=== PATIENT | female | born 1965 | race Hispanic/Latino ===

== ENCOUNTER 2020-01-27 16:52 | Inpatient (IN) | payer OTHER ==
[~2020-01-27] VITALS: Ht 152.4 cm; Wt 90.7 kg
[2020-01-27] MEDS ORDERED: ONDANSETRON HCL INJ 2MG/ML 2ML 2 MG/ML VIAL IV STA (18:05)
[2020-01-27] MEDS ORDERED: SODIUM CHLORIDE 0.9% 1000ML 1,000 ML IV STA ×3 (18:05→18:07)
--- NOTE | 2020-01-27 18:11 | Emergency Department Note ---
History of Present Illnes History of Present Illness Chief Complaint: General Medicine Complaints History of Present Illness This is a 55 year old female .c/o dizziness weakx 3 wks noted bs 593 in ed c/o n/v Chief Complaint Comment AT [facility], FELT DIZZY AND WEAK LAST 3 WEEKS. AAOX4. GCS 15, AMBULATORY. NO HX DIABETIES, BUT BS 593. NAUSEA AND VOMITING. 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 Arrival Mode: [facility] Treatment DEMOLITION WORKER: IV, See EMS Report Additional Treatment DEMOLITION WORKER: 24G LEFT HAND Onset (how long ago): week(s) (3weeks) Radiation: non-radiation, back, neck, extremity, abdomen, periumbilical, flank, proximal, distal, other Severity: mild Onset quality: gradual Duration (how long): week(s) (3 wks) Progression: worsening Context: recent illness, recent surgery, recent immobilization, recent travel, trauma/injury, new medications, hx of DVT/PE, non-compliance w/ medications, other Relieving factors: none Exacerbating factors: none Treatments prior to arrival: none Past Medical/Family History Physician Review I have reviewed the patient's past medical and family history. Any updates have been documented here. Past Medical History Recent Fever: No Clinical Suspicion of Infectio: No New/Unexplained Change in Ment: No Past Medical History: Hypertension Past Surgical History: Cholecysctectomy Social History Smoking Cessation: Never Smoker Alcohol Use: None Any Illegal Drug Use: No TB Exposure/Symptoms: No Physically hurt or threatened: No Family History Family history of heart diseas: No Other Any Pre-Existing Lines (PICC,: No Review of Systems Review of Systems Constitutional: malaise, weakness EENTM: no symptoms Cardiovascular: no symptoms Respiratory: no symptoms Gastrointestinal: no symptoms Genitourinary: no symptoms Musculoskeletal: no symptoms Neurological: weakness, other (dizziness) Psychological: no symptoms Endocrine: no symptoms Hematological/Lymphatic: no symptoms Review of other systems All other systems reviewed and negative. This is a 55 year old female .c/o dizziness weakx 3 wks noted bs 593 in ed c/o n/v Physical Exam Related Data Allergies: Coded Allergies: No Known Allergies (Unverified , 01/27/20) Triage Vital Signs Vital Signs Date Time Temp Pulse Resp B/P (MAP) Pulse Ox O2 Delivery O2 Flow Rate FiO2 01/27/20 16:54 97.6 99 18 184/72 99 Physical Exam CONSTITUTIONAL Constitutional: well-developed, well-nourished HENT HENT: normocephalic, atraumatic, oropharynx clear/moist, nose normal HENT L/R: left ext ear normal, right ext ear normal EYES Eyes: PERRL, conjunctivae normal NECK Neck: ROM normal PULMONARY Pulmonary: effort normal, breath sounds normal CARDIOVASCULAR Cardiovascular: regular rhythm, heart sounds normal, capillary refill normal, normal rate GASTROINTESTINAL Abdominal: soft, nontender, bowel sounds normal GENITOURINARY Genitourinary: exam deferred SKIN Skin: warm, dry MUSCULOSKELETAL Musculoskeletal: ROM normal NEUROLOGICAL Neurological: alert, oriented x 3, no gross motor or sensory deficits PSYCHOLOGICAL Psychological: mood/affect normal, judgement normal Exam - additional comments This is a 55 year old female .c/o dizziness weakx 3 wks noted bs 593 in ed c/o n/v Results Laboratory Laboratory Laboratory Tests Test 01/27/20 18:00 White Blood Count 10.58 x10e3/uL (4.8-10.8) Red Blood Count 5.32 x10e6/uL (3.6-5.1) Hemoglobin 14.8 g/dL (12.0-16.0) Hematocrit 43.6 % (34.2-44.1) Mean Corpuscular Volume 82.0 fL (81-99) Mean Corpuscular Hemoglobin 27.8 pg (28-32) Mean Corpuscular Hemoglobin Concent 33.9 g/dL (31-35) Red Cell Distribution Width 12.4 % (11.7-14.4) Platelet Count 230 x10e3/uL (140-360) Neutrophils (%) (Auto) 65.0 % (38.7-80.0) Lymphocytes (%) (Auto) 27.9 % (18.0-39.1) Monocytes (%) (Auto) 5.2 % (4.4-11.3) Eosinophils (%) (Auto) 1.2 % (0.0-6.0) Basophils (%) (Auto) 0.4 % (0.0-1.0) Neutrophils # (Auto) 6.9 (2.1-6.9) Lymphocytes # (Auto) 3.0 (1.0-3.2) Monocytes # (Auto) 0.6 (0.2-0.8) Eosinophils # (Auto) 0.1 (0.0-0.4) Basophils # (Auto) 0.0 (0.0-0.1) Absolute Immature Granulocyte (auto 0.03 x10e3/uL (0-0.1) Sodium Level 137 mmol/L (136-145) Potassium Level 3.0 mmol/L (3.5-5.1) Chloride Level 100 mmol/L (98-107) Carbon Dioxide Level 21 mmol/L (22-29) Anion Gap 19.0 mmol/L (8-16) Blood Urea Nitrogen 9 mg/dL (7-26) Creatinine 1.11 mg/dL (0.57-1.11) Estimat Glomerular Filtration Rate 51 ML/MIN (60-) BUN/Creatinine Ratio 8 (6-25) Glucose Level 470 mg/dL (74-118) Calcium Level 9.6 mg/dL (8.4-10.2) Magnesium Level 1.4 MG/DL (1.3-2.1) Total Bilirubin 0.5 mg/dL (0.2-1.2) Aspartate Amino Transf (AST/SGOT) 59 IU/L (5-34) Alanine Aminotransferase (ALT/SGPT) 76 IU/L (0-55) Alkaline Phosphatase 151 IU/L (40-150) Creatine Kinase 54 IU/L (29-168) Creatine Kinase MB 0.70 ng/mL (0-5.0) Troponin I 0.020 ng/mL (0-0.300) B-Type Natriuretic Peptide 16.4 pg/mL (0-100) Total Protein 8.4 g/dL (6.5-8.1) Albumin 3.7 g/dL (3.5-5.0) Globulin 4.7 g/dL (2.3-3.5) Albumin/Globulin Ratio 0.8 (0.8-2.0) Triglycerides Level 202 MG/DL (0-149) Cholesterol Level 167 MD/DL (0-199) LDL Cholesterol 62 MG/DL (60-130) HDL Cholesterol 65 MG/DL (40-60) Cholesterol/HDL Ratio 2.6 (3.0-3.6) Amylase Level 20 U/L (25-125) Lipase 22 U/L (8-78) Lab results reviewed: Yes Critical Care Time Subsequent provider I assumed direction of critical care for this patient from another provider of my specialty. Assessment & Plan Reassessment Reassessment This is a 55 year old female .c/o dizziness weak x 3 wks noted bs 593 in ed c/o n/v- lab ordered pt medicated w/ ns bolus x 2 and zofran pt medicated w/ reg insulin 10u Assessment & Plan Final Impression: (1) Hypokalemia (2) Weakness (3) Obesity (4) Type 2 diabetes mellitus Assessment & Plan discussed lab results plan of care and need for admit spoke w/ Dr Mobley will admit Depart Disposition: ADMITTED Last Vital Signs Date Time Temp Pulse Resp B/P (MAP) Pulse Ox O2 Delivery O2 Flow Rate FiO2 01/27/20 16:54 97.6 99 18 184/72 99 RASHEED CADE Jan 27, 2020 18:11
[2020-01-27 18:41] LABS: BASOPHILS % 0.4 % (0.0-1.0); EOSINOPHILS # (AUTO) 0.1 (0.0-0.4); EOSINOPHILS % 1.2 % (0.0-6.0); HEMATOCRIT 43.6 % (34.2-44.1); HEMOGLOBIN 14.8 g/dL (12.0-16.0); LYMPHOCYTES % 27.9 % (18.0-39.1); MEAN CORPUSCULAR HEMOGLOBIN 27.8 pg (28-32); MEAN CORPUSCULAR HGB CONC 33.9 g/dL (31-35); MONOCYTES # (AUTO) 0.6 (0.2-0.8); MONOCYTES % 5.2 % (4.4-11.3); NEUTROPHILS # (AUTO) 6.9 (2.1-6.9); PLATELET COUNT 230 x10e3/uL (140-360); RED BLOOD COUNT 5.32 x10e6/uL (3.6-5.1); RED CELL DISTRIBUTION WIDTH 12.4 % (11.7-14.4)
[2020-01-27 19:09] LABS: ALBUMIN 3.7 g/dL (3.5-5.0); ALBUMIN/GLOBULIN RATIO 0.8 (0.8-2.0); CALCIUM 9.6 mg/dL (8.4-10.2); CHOL/HDL RATIO 2.6 (3.0-3.6); CREATININE, SERUM 1.11 mg/dL (0.57-1.11); MAGNESIUM 1.4 MG/DL (1.3-2.1)
[2020-01-27 19:17] LABS: CREATINE KINASE MB 0.7 ng/mL (0-5.0)
[2020-01-27] MEDS ORDERED: POTASSIUM CHLORIDE 20MEQ/15ML UDC PO ONE (19:30)
[2020-01-27] MEDS ORDERED: KCL 20MEQ/.9 SOD CHL 1,000 ML IV ONE ×3 (19:30→23:45)
[2020-01-27] MEDS ORDERED: INSULIN REGULAR, HUMAN 100 UNIT/1 ML 3ML VIAL IV ONE (19:30)
[2020-01-27] MEDS ORDERED: DEXTROSE 50% SYRINGE 50 ML IV PRN ×2 (19:45→22:45)
[2020-01-27] MEDS ORDERED: ASPIRIN 81 MG CHEW TAB PO ONE (19:45)
--- NOTE | 2020-01-27 20:12 | Diagnostic Imaging Report ---
EXAM: CHEST SINGLE (NOT PORTABLE) DATE: 01/27/2020 6:30 PM INDICATION: Dizziness, weakness ^ERMD ORDER ^[id number] ^1830 ^Y COMPARISON: None FINDINGS: Lines and tubes: None Heart size normal allowing for low lung volumes. No focal pulmonary opacity, pleural effusion or pneumothorax. Upper abdomen unremarkable. No acute bony abnormality. IMPRESSION: No evidence for acute disease. Signed by: Dr. Ronak Real M.D. on 01/27/2020 8:09 PM
[2020-01-27] MEDS: ONDANSETRON HCL INJ 2MG/ML 2ML 2 MG/ML VIAL IV PRN (20:13)
[2020-01-27] MEDS ORDERED: POTASSIUM CHLORIDE 20 MEQ TAB CR PO SCH (21:00)
[2020-01-27] MEDS ORDERED: INSULIN REGULAR, HUMAN 100 UNIT/1 ML 3ML VIAL SQ SCH (21:00)
[2020-01-27 21:14] LABS: CLARITY,URINE SL CLOUDY (CLEAR); COLOR,URINE YELLOW (YELLOW); KETONES,URINE TRACE (NEGATIVE); LEUKOCYTE ESTERASE ,URINE TRACE (NEGATIVE); NITRITE,URINE POSITIVE (NEGATIVE); PROTEIN,URINE DIPSTICK NEGATIVE (NEGATIVE); URINE UROBILINOGEN 0.2 mg/dL (0.2 - 1)
[2020-01-27 21:15] LABS: BILIRUBIN,URINE NEGATIVE (NEGATIVE)
--- OUTSIDE RECORDS SUMMARY | 2020-01-27 21:15 | XMS REPORT | Continuity of Care Document ---
Author Author [facility] Organization [facility] Address [address] [place] [address] Phone Unavailable Care Team Providers Care Change Coordinator Name Role Phone RASHEED CADE MD Attphys Unavailable GILL, TEE Admphys Unavailable Payers Payer Name Policy Type Policy Number Effective Date Expiration Date S ource Problems This patient has no known problems. Allergies, Adverse Reactions, Alerts Allergy Name Allergy Type Status Severity Reaction(s) Onset Date Inacti ve Date Treating Clinician Comments Source No Known Allergies DA Active U 2015-12-15 00:00:00 [facility] Medications This patient has no known medications. Procedures This patient has no known procedures. Results Test Description Test Time Test Comments Results Result Comments Source CHEST SINGLE (NOT PORTABLE) 2020-01-27 20:08:00 [facility] [address] [place], [place] [address] Patient Name: STAR THORNTON MR #: [id number] : 1965 Age/Sex: 55/F Req #: [id number] Adm Physician: Ordered by: RASHEED CADE MD, MD Report #: [id number] Location: ER Room/Bed: Procedure: [id number] DX/CHEST SINGLE (NOT PORTABLE) Exam Date: 01/27/20 Exam Time: 1829 REPORT STATUS: Signed EXAM: CHEST SINGLE (NOT PORTABLE) DATE: 01/27/2020 6:30 PM INDICATION: Dizziness, weakness ERMD ORDER [id number] COMPARISON: None FINDINGS: Lines and tubes: None Heart size normal allowing for low lung volumes. No focal pulmonary opacity, pleural effusion or pneumothorax. Upper abdomen unremarkable. No acute bony abnormality. IMPRESSION: No evidence for acute disease. Signed by: Dr. Valerie Real M.D. on 01/27/2020 8:09 PM Dictated By: VALERIE REAL MD 08 Transcribed By: CANDICE on 01/27/202008 COPY TO: RASHEED CADE GASTRIC,BIOPSY 2019-05-23 12:23:00 RUN DATE: 05/23/19 [place] - Lab PAGE 1 RUN TIME: 1223 Specimen Inquiry RUN USER: INTERFACE PATIENT: STAR CLIFFORD LOC: [facility] U #: [id number] AGE/SX: 54/F ROOM: [facility] RE05/07/[facility] DR: [place]a [place] : 61 BED: A DIS: 05/16/19 STATUS: DIS IN TLOC: SPEC #: [id number] RECD: 05/15/19 STATUS: YOSELIN REQ #: [id number] JAMAL: 05/14/19-13[address] [facility] [address]: Moshe Oh MD ENTERED: 05/15/19 SP TYPE: GASTRIC BX OTHR DR: Herman Cantrell MD, David N MDORDERED: GROSS COPIES TO: Herman Cantrell MD [address] [place] [address] Moshe Oh MD [address] [place], [place] [id number] Ata Michaels MD [address] [place] [address] MARKERS: INTRADEPARTMENTAL CONSULT PROCEDURES: GROSS (05/20/19-0597) TISSUES: ANTRUM - NODULE BX COLD CLINICAL HISTORY COLLECTION DATE: 05/14/2019 ABDOMINAL PAIN, NAUSEA; VOMITING POST-OP DIAGNOSIS: GASTRITIS, HIATAL HERNIA, GASTROPARESIS COMMENT Multiple levels of the tissue show an area in which the mucosal surface is intact. Beneath the mucosal lining is an expanded are of inflamed granulation tissue. No discrete areas of mucosal erosion/ulceration are identified in the biopsy sample. Features diagnostic of malignancy are not present. Correlation is necessary. Intradepartmental consultation: DMW. CONTINUED ON NEXT PAGE RUN DATE: 05/23/19 [place] - Lab PAGE 2 RUN TIME: 1223 Specimen Inquiry RUN USER: INTERFACE ------ ------SPEC #: [id number] PATIENT: STAR CLIFFORD #[id number] (Continued) FINAL DIAGNOSIS Antral nodule, biopsy: PROMINENT AREA OF INFLAMED GRANULATION TISSUE IN ANTRAL MUCOSA, see comment NEGATIVE FOR INTESTINAL METAPLASIA NEGATIVE FOR HELICOBACTER ORGANISMS NEGATIVE FOR MALIGNANCY MULTIPLE LEVELS EXAMINED RRB/ D [address], [address] MACROSCOPIC The specimen is received in formalin, labeled with the patient's name, identified as "antrum nodule", and consists of boo biopsy tissue measuring 0.3 cm, submitted for H E and Giemsa stains. GROSS PERFORMED AT [facility] [address] [place] [address] (P)[phone] MICROSCOPIC All of the stains, including any controls performed, stain appropriately. MICROSCOPIC PERFORMED AT [facility] [address] [place] [address] (P)[phone] PER[address] Diagnosis performed at: [facility], [address] [place] [address] Signed SIGNATURE ON FILE Ignacio Dee MD 05/23/19 1223 END OF REPORT GLUBED 2019-05-16 04:55:00 Test Item GLUBED (test code = GLUBED) 84 mg/dL 74-106 N Performed by certified vegetable washing machine operator at [facility] [id number] 21:30:00* Test Item Value Reference Range Interpretation Comments GLUBED (test code = GLUBED) 133 mg/dL 74-106 H Performed by certified vegetable washing machine operator at [facility] [id number] 17:36:00* Test Item Value Reference Range Interpretation Comments GLUBED (test code = GLUBED) 127 mg/dL 74-106 H Performed by certified vegetable washing machine operator at [facility] [id number] 13:00:00* Test Item Value Reference Range Interpretation Comments GLUBED (test code = GLUBED) 206 mg/dL 74-106 H Performed by certified vegetable washing machine operator at [facility] BASIC METABOLIC [id number] 07:36:00* Test Item Value Reference Range Interpretation Comments SODIUM (test code = NA) 141 mmol/L 136-145 N POTASSIUM (test code = K) 3.3 mmol/L 3.5-5.1 L CHLORIDE (test code = CL) 115.0 mmol/L 98-107 H CARBON DIOXIDE (test code = CO2) 19.0 mmol/L 21-32 L ANION GAP (test code = GAP) 10.3 10-20 N GLUCOSE (test code = GLU) 105 mg/dL 74-106 N BLOOD UREA NITROGEN (test code = BUN) 2 mg/dL 7-18 L GLOMERULAR FILTRATION RATE (test code = GFR) > 60 mL/min >=60 Estimated GFR by using Modified MDRD formula.Chronic kidney disease is defined as either kidney damageor GFR <60 mL/min/1.73 m2 for >3 months. CREATININE (test code = CREAT) 0.50 mg/dL 0.55-1.02 L Note change in reference range due to change in reagent. BUN/CREATININE RATIO (test code = BUN/CREA) 3.7 10-20 L CALCIUM (test code = CA) 8.4 mg/dL 8.5-10.1 L BASIC METABOLIC [id number] 07:31:00* Test Item Value Reference Range Interpretation Comments SODIUM (test code = NA) 141 mmol/L 136-145 N POTASSIUM (test code = K) 3.3 mmol/L 3.5-5.1 L CHLORIDE (test code = CL) 115.0 mmol/L 98-107 H CARBON DIOXIDE (test code = CO2) mmol/L 21-32 ANION GAP (test code = GAP) 10-20 GLUCOSE (test code = GLU) mg/dL 74-106 BLOOD UREA NITROGEN (test code = BUN) mg/dL 7-18 GLOMERULAR FILTRATION RATE (test code = GFR) mL/min >=60 CREATININE (test code = CREAT) mg/dL 0.55-1.02 BUN/CREATININE RATIO (test code = BUN/CREA) 10-20 CALCIUM (test code = CA) mg/dL 8.5-10.1 CBC W/AUTO [id number] 07:13:00* Test Item Value Reference Range Interpretation Comments WHITE BLOOD CELL (test code = WBC) 6.6 K/mm3 4.5-12.5 N RED BLOOD CELL (test code = RBC) 4.52 mill/mm3 3.7-5.2 N HEMOGLOBIN (test code = HGB) 13.0 gram/dL 11.5-15.5 N HEMATOCRIT (test code = HCT) 39.5 % 36.0-46.0 N MEAN CELL VOLUME (test code = MCV) 87.4 fL 80-98 N MEAN CELL HGB (test code = MCH) 28.8 picogram 27.0-33.0 N MEAN CELL HGB CONCETRATION (test code = MCHC) 32.9 gram/dL 33.0-36. 0 L RED CELL DISTRIBUTION WIDTH (test code = RDW) 13.1 % 11.6-16. 2 N RED CELL DISTRIBUTION WIDTH SD (test code = RDW-SD) 41.6 fL 37 .0-51.0 N PLATELET COUNT (test code = PLT) 310 K/mm3 150-450 N MEAN PLATELET VOLUME (test code = MPV) 9.9 fL 6.7-11.0 N NEUTROPHIL % (test code = NT%) 51.9 % 39.0-69.0 N IMMATURE GRANULOCYTE % (test code = IG%) 0.3 % 0.0-5.0 N LYMPHOCYTE % (test code = LY%) 36.2 % 25.0-55.0 N MONOCYTE % (test code = MO%) 7.8 % 0.0-10.0 N EOSINOPHIL % (test code = EO%) 3.5 % 0.0-5.0 N BASOPHIL % (test code = BA%) 0.3 % 0.0-1.0 N NUCLEATED RBC % (test code = NRBC%) 0.0 % 0-0 N NEUTROPHIL # (test code = NT#) 3.42 K/mm3 1.8-7.7 N IMMATURE GRANULOCYTE # (test code = IG#) 0.02 x10 3/uL 0-0.03 N LYMPHOCYTE # (test code = LY#) 2.38 K/mm3 1.0-5.0 N MONOCYTE # (test code = MO#) 0.51 K/mm3 0-0.8 N EOSINOPHIL # (test code = EO#) 0.23 K/mm3 0.0-0.5 N BASOPHIL # (test code = BA#) 0.02 K/mm3 0.0-0.2 N NUCLEATED RBC # (test code = NRBC#) 0.00 K/mm3 0.0-0.1 N CBC W/AUTO [id number] 07:10:00* Test Item Value Reference Range Interpretation Comments WHITE BLOOD CELL (test code = WBC) K/mm3 4.5-12.5 RED BLOOD CELL (test code = RBC) mill/mm3 3.7-5.2 HEMOGLOBIN (test code = HGB) 13.0 gram/dL 11.5-15.5 N HEMATOCRIT (test code = HCT) 39.5 % 36.0-46.0 N MEAN CELL VOLUME (test code = MCV) fL 80-98 MEAN CELL HGB (test code = MCH) picogram 27.0-33.0 MEAN CELL HGB CONCETRATION (test code = MCHC) gram/dL 33.0-36. 0 RED CELL DISTRIBUTION WIDTH (test code = RDW) % 11.6-16. 2 RED CELL DISTRIBUTION WIDTH SD (test code = RDW-SD) fL 37 .0-51.0 PLATELET COUNT (test code = PLT) K/mm3 150-450 MEAN PLATELET VOLUME (test code = MPV) fL 6.7-11.0 NEUTROPHIL % (test code = NT%) % 39.0-69.0 IMMATURE GRANULOCYTE % (test code = IG%) % 0.0-5.0 LYMPHOCYTE % (test code = LY%) % 25.0-55.0 MONOCYTE % (test code = MO%) % 0.0-10.0 EOSINOPHIL % (test code = EO%) % 0.0-5.0 BASOPHIL % (test code = BA%) % 0.0-1.0 NEUTROPHIL # (test code = NT#) K/mm3 1.8-7.7 LYMPHOCYTE # (test code = LY#) K/mm3 1.0-5.0 MONOCYTE # (test code = MO#) K/mm3 0-0.8 EOSINOPHIL # (test code = EO#) K/mm3 0.0-0.5 BASOPHIL # (test code = BA#) K/mm3 0.0-0.2 [id number] 05:02:00* Test Item Value Reference Range Interpretation Comments GLUBED (test code = GLUBED) 92 mg/dL 74-106 N Performed by certified vegetable washing machine operator at [facility] [id number] 20:59:00* Test Item Value Reference Range Interpretation Comments GLUBED (test code = GLUBED) 150 mg/dL 74-106 H Performed by certified vegetable washing machine operator at [facility] [id number] 17:54:00* Test Item Value Reference Range Interpretation Comments GLUBED (test code = GLUBED) 136 mg/dL 74-106 H Performed by certified vegetable washing machine operator at [facility] [id number] 11:49:00* Test Item Value Reference Range Interpretation Comments GLUBED (test code = GLUBED) 102 mg/dL 74-106 N Performed by certified vegetable washing machine operator at [facility] COMPREHENSIVE METABOLIC [id number] 07:10:00* Test Item Value Reference Range Interpretation Comments SODIUM (test code = NA) 143 mmol/L 136-145 N POTASSIUM (test code = K) 3.2 mmol/L 3.5-5.1 L CHLORIDE (test code = CL) 116.0 mmol/L 98-107 H CARBON DIOXIDE (test code = CO2) 22.0 mmol/L 21-32 N ANION GAP (test code = GAP) 8.2 10-20 L GLUCOSE (test code = GLU) 107 mg/dL 74-106 H BLOOD UREA NITROGEN (test code = BUN) 1 mg/dL 7-18 L GLOMERULAR FILTRATION RATE (test code = GFR) > 60 mL/min >=60 Estimated GFR by using Modified MDRD formula.Chronic kidney disease is defined as either kidney damageor GFR <60 mL/min/1.73 m2 for >3 months. CREATININE (test code = CREAT) 0.60 mg/dL 0.55-1.02 N Note change in reference range due to change in reagent. BUN/CREATININE RATIO (test code = BUN/CREA) 1.6 10-20 L TOTAL PROTEIN (test code = PROT) 6.1 gram/dL 6.4-8.2 L ALBUMIN (test code = ALB) 1.9 g/dL 3.4-5.0 L GLOBULIN (test code = GLOB) 4.2 gram/dL 2.7-4.2 N ALBUMIN/GLOBULIN RATIO (test code = A/G) 0.5 0.75-1.50 L CALCIUM (test code = CA) 8.0 mg/dL 8.5-10.1 L BILIRUBIN TOTAL (test code = BILT) 0.30 mg/dL 0.0-1.0 N SGOT/AST (test code = AST) 29 IUnit/L 15-37 N SGPT/ALT (test code = ALT) 23 IUnit/L 12-78 N ALKALINE PHOSPHATASE TOTAL (test code = ALKP) 75 IUnit/L 45-117 N Note change in reference range due to change in reagent. [id number] 07:10:00* Test Item Value Reference Range Interpretation Comments MAGNESIUM (test code = MAG) 1.9 mg/dL 1.8-2.4 N COMPREHENSIVE METABOLIC [id number] 07:04:00* Test Item Value Reference Range Interpretation Comments SODIUM (test code = NA) 143 mmol/L 136-145 N POTASSIUM (test code = K) 3.2 mmol/L 3.5-5.1 L CHLORIDE (test code = CL) 116.0 mmol/L 98-107 H CARBON DIOXIDE (test code = CO2) mmol/L 21-32 ANION GAP (test code = GAP) 10-20 GLUCOSE (test code = GLU) mg/dL 74-106 BLOOD UREA NITROGEN (test code = BUN) mg/dL 7-18 GLOMERULAR FILTRATION RATE (test code = GFR) mL/min >=60 CREATININE (test code = CREAT) mg/dL 0.55-1.02 BUN/CREATININE RATIO (test code = BUN/CREA) 10-20 TOTAL PROTEIN (test code = PROT) gram/dL 6.4-8.2 ALBUMIN (test code = ALB) g/dL 3.4-5.0 GLOBULIN (test code = GLOB) gram/dL 2.7-4.2 ALBUMIN/GLOBULIN RATIO (test code = A/G) 0.75-1.50 CALCIUM (test code = CA) mg/dL 8.5-10.1 BILIRUBIN TOTAL (test code = BILT) mg/dL 0.0-1.0 SGOT/AST (test code = AST) IUnit/L 15-37 SGPT/ALT (test code = ALT) IUnit/L 12-78 ALKALINE PHOSPHATASE TOTAL (test code = ALKP) IUnit/L 45-117 [id number] 07:04:00* Test Item Value Reference Range Interpretation Comments MAGNESIUM (test code = MAG) mg/dL 1.8-2.4 CBC W/AUTO [id number] 06:49:00* Test Item Value Reference Range Interpretation Comments WHITE BLOOD CELL (test code = WBC) 6.8 K/mm3 4.5-12.5 N RED BLOOD CELL (test code = RBC) 4.26 mill/mm3 3.7-5.2 N HEMOGLOBIN (test code = HGB) 12.2 gram/dL 11.5-15.5 N HEMATOCRIT (test code = HCT) 37.8 % 36.0-46.0 N MEAN CELL VOLUME (test code = MCV) 88.7 fL 80-98 N MEAN CELL HGB (test code = MCH) 28.6 picogram 27.0-33.0 N MEAN CELL HGB CONCETRATION (test code = MCHC) 32.3 gram/dL 33.0-36. 0 L RED CELL DISTRIBUTION WIDTH (test code = RDW) 13.1 % 11.6-16. 2 N RED CELL DISTRIBUTION WIDTH SD (test code = RDW-SD) 41.5 fL 37 .0-51.0 N PLATELET COUNT (test code = PLT) 290 K/mm3 150-450 N MEAN PLATELET VOLUME (test code = MPV) 9.8 fL 6.7-11.0 N NEUTROPHIL % (test code = NT%) 56.7 % 39.0-69.0 N IMMATURE GRANULOCYTE % (test code = IG%) 1.2 % 0.0-5.0 N LYMPHOCYTE % (test code = LY%) 31.0 % 25.0-55.0 N MONOCYTE % (test code = MO%) 6.9 % 0.0-10.0 N EOSINOPHIL % (test code = EO%) 3.8 % 0.0-5.0 N BASOPHIL % (test code = BA%) 0.4 % 0.0-1.0 N NUCLEATED RBC % (test code = NRBC%) 0.0 % 0-0 N NEUTROPHIL # (test code = NT#) 3.85 K/mm3 1.8-7.7 N IMMATURE GRANULOCYTE # (test code = IG#) 0.08 x10 3/uL 0-0.03 H LYMPHOCYTE # (test code = LY#) 2.11 K/mm3 1.0-5.0 N MONOCYTE # (test code = MO#) 0.47 K/mm3 0-0.8 N EOSINOPHIL # (test code = EO#) 0.26 K/mm3 0.0-0.5 N BASOPHIL # (test code = BA#) 0.03 K/mm3 0.0-0.2 N NUCLEATED RBC # (test code = NRBC#) 0.00 K/mm3 0.0-0.1 N [id number] 05:00:00* Test Item Value Reference Range Interpretation Comments GLUBED (test code = GLUBED) 96 mg/dL 74-106 N Performed by certified vegetable washing machine operator at [facility] [id number] 20:49:00* Test Item Value Reference Range Interpretation Comments GLUBED (test code = GLUBED) 119 mg/dL 74-106 H Performed by certified vegetable washing machine operator at [facility] [id number] 16:17:00* Test Item Value Reference Range Interpretation Comments GLUBED (test code = GLUBED) 157 mg/dL 74-106 H Performed by certified vegetable washing machine operator at [facility] [id number] 11:31:00* Test Item Value Reference Range Interpretation Comments GLUBED (test code = GLUBED) 128 mg/dL 74-106 H Performed by certified vegetable washing machine operator at [facility] COMPREHENSIVE METABOLIC [id number] 08:42:00* Test Item Value Reference Range Interpretation Comments SODIUM (test code = NA) 144 mmol/L 136-145 N POTASSIUM (test code = K) 3.0 mmol/L 3.5-5.1 L RE SULT VERIFIED BY REPEAT ANALYSIS CHLORIDE (test code = CL) 113.0 mmol/L 98-107 H CARBON DIOXIDE (test code = CO2) 26.0 mmol/L 21-32 N ANION GAP (test code = GAP) 8.0 10-20 L GLUCOSE (test code = GLU) 114 mg/dL 74-106 H BLOOD UREA NITROGEN (test code = BUN) 2 mg/dL 7-18 L GLOMERULAR FILTRATION RATE (test code = GFR) > 60 mL/min >=60 Estimated GFR by using Modified MDRD formula.Chronic kidney disease is defined as either kidney damageor GFR <60 mL/min/1.73 m2 for >3 months. CREATININE (test code = CREAT) 0.60 mg/dL 0.55-1.02 N Note change in reference range due to change in reagent. BUN/CREATININE RATIO (test code = BUN/CREA) 3.2 10-20 L TOTAL PROTEIN (test code = PROT) 6.6 gram/dL 6.4-8.2 N ALBUMIN (test code = ALB) 2.1 g/dL 3.4-5.0 L GLOBULIN (test code = GLOB) 4.5 gram/dL 2.7-4.2 H ALBUMIN/GLOBULIN RATIO (test code = A/G) 0.5 0.75-1.50 L CALCIUM (test code = CA) 8.3 mg/dL 8.5-10.1 L BILIRUBIN TOTAL (test code = BILT) 0.30 mg/dL 0.0-1.0 N SGOT/AST (test code = AST) 30 IUnit/L 15-37 N SGPT/ALT (test code = ALT) 22 IUnit/L 12-78 N ALKALINE PHOSPHATASE TOTAL (test code = ALKP) 84 IUnit/L 45-117 N Note change in reference range due to change in reagent. [id number] 08:42:00* Test Item Value Reference Range Interpretation Comments MAGNESIUM (test code = MAG) 1.5 mg/dL 1.8-2.4 L COMPREHENSIVE METABOLIC [id number] 08:36:00* Test Item Value Reference Range Interpretation Comments SODIUM (test code = NA) 144 mmol/L 136-145 N POTASSIUM (test code = K) 3.0 mmol/L 3.5-5.1 L RE SULT VERIFIED BY REPEAT ANALYSIS CHLORIDE (test code = CL) 113.0 mmol/L 98-107 H CARBON DIOXIDE (test code = CO2) mmol/L 21-32 ANION GAP (test code = GAP) 10-20 GLUCOSE (test code = GLU) mg/dL 74-106 BLOOD UREA NITROGEN (test code = BUN) mg/dL 7-18 GLOMERULAR FILTRATION RATE (test code = GFR) mL/min >=60 CREATININE (test code = CREAT) mg/dL 0.55-1.02 BUN/CREATININE RATIO (test code = BUN/CREA) 10-20 TOTAL PROTEIN (test code = PROT) gram/dL 6.4-8.2 ALBUMIN (test code = ALB) g/dL 3.4-5.0 GLOBULIN (test code = GLOB) gram/dL 2.7-4.2 ALBUMIN/GLOBULIN RATIO (test code = A/G) 0.75-1.50 CALCIUM (test code = CA) mg/dL 8.5-10.1 BILIRUBIN TOTAL (test code = BILT) mg/dL 0.0-1.0 SGOT/AST (test code = AST) IUnit/L 15-37 SGPT/ALT (test code = ALT) IUnit/L 12-78 ALKALINE PHOSPHATASE TOTAL (test code = ALKP) IUnit/L 45-117 [id number] 08:36:00* Test Item Value Reference Range Interpretation Comments MAGNESIUM (test code = MAG) mg/dL 1.8-2.4 CBC W/AUTO [id number] 08:25:00* Test Item Value Reference Range Interpretation Comments WHITE BLOOD CELL (test code = WBC) 8.4 K/mm3 4.5-12.5 N RED BLOOD CELL (test code = RBC) 4.52 mill/mm3 3.7-5.2 N HEMOGLOBIN (test code = HGB) 13.1 gram/dL 11.5-15.5 N HEMATOCRIT (test code = HCT) 38.6 % 36.0-46.0 N MEAN CELL VOLUME (test code = MCV) 85.4 fL 80-98 N MEAN CELL HGB (test code = MCH) 29.0 picogram 27.0-33.0 N MEAN CELL HGB CONCETRATION (test code = MCHC) 33.9 gram/dL 33.0-36. 0 N RED CELL DISTRIBUTION WIDTH (test code = RDW) 12.6 % 11.6-16. 2 N RED CELL DISTRIBUTION WIDTH SD (test code = RDW-SD) 38.9 fL 37 .0-51.0 N PLATELET COUNT (test code = PLT) 287 K/mm3 150-450 N MEAN PLATELET VOLUME (test code = MPV) 10.2 fL 6.7-11.0 N NEUTROPHIL % (test code = NT%) 56.0 % 39.0-69.0 N IMMATURE GRANULOCYTE % (test code = IG%) 0.7 % 0.0-5.0 N LYMPHOCYTE % (test code = LY%) 31.9 % 25.0-55.0 N MONOCYTE % (test code = MO%) 7.1 % 0.0-10.0 N EOSINOPHIL % (test code = EO%) 3.9 % 0.0-5.0 N BASOPHIL % (test code = BA%) 0.4 % 0.0-1.0 N NUCLEATED RBC % (test code = NRBC%) 0.0 % 0-0 N NEUTROPHIL # (test code = NT#) 4.71 K/mm3 1.8-7.7 N IMMATURE GRANULOCYTE # (test code = IG#) 0.06 x10 3/uL 0-0.03 H LYMPHOCYTE # (test code = LY#) 2.68 K/mm3 1.0-5.0 N MONOCYTE # (test code = MO#) 0.60 K/mm3 0-0.8 N EOSINOPHIL # (test code = EO#) 0.33 K/mm3 0.0-0.5 N BASOPHIL # (test code = BA#) 0.03 K/mm3 0.0-0.2 N NUCLEATED RBC # (test code = NRBC#) 0.00 K/mm3 0.0-0.1 N CBC W/AUTO [id number] 08:23:00* Test Item Value Reference Range Interpretation Comments WHITE BLOOD CELL (test code = WBC) K/mm3 4.5-12.5 RED BLOOD CELL (test code = RBC) mill/mm3 3.7-5.2 HEMOGLOBIN (test code = HGB) 13.1 gram/dL 11.5-15.5 N HEMATOCRIT (test code = HCT) 38.6 % 36.0-46.0 N MEAN CELL VOLUME (test code = MCV) fL 80-98 MEAN CELL HGB (test code = MCH) picogram 27.0-33.0 MEAN CELL HGB CONCETRATION (test code = MCHC) gram/dL 33.0-36. 0 RED CELL DISTRIBUTION WIDTH (test code = RDW) % 11.6-16. 2 RED CELL DISTRIBUTION WIDTH SD (test code = RDW-SD) fL 37 .0-51.0 PLATELET COUNT (test code = PLT) K/mm3 150-450 MEAN PLATELET VOLUME (test code = MPV) fL 6.7-11.0 NEUTROPHIL % (test code = NT%) % 39.0-69.0 IMMATURE GRANULOCYTE % (test code = IG%) % 0.0-5.0 LYMPHOCYTE % (test code = LY%) % 25.0-55.0 MONOCYTE % (test code = MO%) % 0.0-10.0 EOSINOPHIL % (test code = EO%) % 0.0-5.0 BASOPHIL % (test code = BA%) % 0.0-1.0 NEUTROPHIL # (test code = NT#) K/mm3 1.8-7.7 LYMPHOCYTE # (test code = LY#) K/mm3 1.0-5.0 MONOCYTE # (test code = MO#) K/mm3 0-0.8 EOSINOPHIL # (test code = EO#) K/mm3 0.0-0.5 BASOPHIL # (test code = BA#) K/mm3 0.0-0.2 [id number] 05:32:00* Test Item Value Reference Range Interpretation Comments GLUBED (test code = GLUBED) 112 mg/dL 74-106 H Performed by certified vegetable washing machine operator at [facility] [id number] 21:07:00* Test Item Value Reference Range Interpretation Comments GLUBED (test code = GLUBED) 134 mg/dL 74-106 H Performed by certified vegetable washing machine operator at [facility]2019-09-22 16:30:00* Test Item Value Reference Range Interpretation Comments GLUBED (test code = GLUBED) 94 mg/dL 74-106 N Performed by certified vegetable washing machine operator at [facility]2019-09-22 12:00:00* Test Item Value Reference Range Interpretation Comments GLUBED (test code = GLUBED) 102 mg/dL 74-106 N Performed by certified vegetable washing machine operator at [facility]2019-09-22 06:43:00* Test Item Value Reference Range Interpretation Comments GLUBED (test code = GLUBED) 108 mg/dL 74-106 H Performed by certified vegetable washing machine operator at [facility]2019-09-21 20:42:00* Test Item Value Reference Range Interpretation Comments GLUBED (test code = GLUBED) 137 mg/dL 74-106 H Performed by certified vegetable washing machine operator at [facility] [id number] 16:58:00* Test Item Value Reference Range Interpretation Comments GLUBED (test code = GLUBED) 199 mg/dL 74-106 H Performed by certified vegetable washing machine operator at [facility] [id number] 16:58:00* Test Item Value Reference Range Interpretation Comments GLUBED (test code = GLUBED) 101 mg/dL 74-106 N Performed by certified vegetable washing machine operator at [facility] [id number] 16:58:00* Test Item Value Reference Range Interpretation Comments GLUBED (test code = GLUBED) 106 mg/dL 74-106 N Performed by certified vegetable washing machine operator at [facility] COMPREHENSIVE METABOLIC [id number] 08:23:00* Test Item Value Reference Range Interpretation Comments SODIUM (test code = NA) 142 mmol/L 136-145 N POTASSIUM (test code = K) 3.0 mmol/L 3.5-5.1 L CHLORIDE (test code = CL) 111.0 mmol/L 98-107 H CARBON DIOXIDE (test code = CO2) 24.0 mmol/L 21-32 N ANION GAP (test code = GAP) 10.0 10-20 N GLUCOSE (test code = GLU) 101 mg/dL 74-106 N BLOOD UREA NITROGEN (test code = BUN) 4 mg/dL 7-18 L GLOMERULAR FILTRATION RATE (test code = GFR) > 60 mL/min >=60 Estimated GFR by using Modified MDRD formula.Chronic kidney disease is defined as either kidney damageor GFR <60 mL/min/1.73 m2 for >3 months. CREATININE (test code = CREAT) 0.60 mg/dL 0.55-1.02 N Note change in reference range due to change in reagent. BUN/CREATININE RATIO (test code = BUN/CREA) 7.2 10-20 L TOTAL PROTEIN (test code = PROT) 6.3 gram/dL 6.4-8.2 L ALBUMIN (test code = ALB) 1.8 g/dL 3.4-5.0 L GLOBULIN (test code = GLOB) 4.5 gram/dL 2.7-4.2 H ALBUMIN/GLOBULIN RATIO (test code = A/G) 0.4 0.75-1.50 L CALCIUM (test code = CA) 8.2 mg/dL 8.5-10.1 L BILIRUBIN TOTAL (test code = BILT) 0.30 mg/dL 0.0-1.0 N SGOT/AST (test code = AST) 36 IUnit/L 15-37 N SGPT/ALT (test code = ALT) 26 IUnit/L 12-78 N ALKALINE PHOSPHATASE TOTAL (test code = ALKP) 91 IUnit/L 45-117 N Note change in reference range due to change in reagent. COMPREHENSIVE METABOLIC [id number] 08:17:00* Test Item Value Reference Range Interpretation Comments SODIUM (test code = NA) 142 mmol/L 136-145 N POTASSIUM (test code = K) 3.0 mmol/L 3.5-5.1 L CHLORIDE (test code = CL) 111.0 mmol/L 98-107 H CARBON DIOXIDE (test code = CO2) mmol/L 21-32 ANION GAP (test code = GAP) 10-20 GLUCOSE (test code = GLU) mg/dL 74-106 BLOOD UREA NITROGEN (test code = BUN) mg/dL 7-18 GLOMERULAR FILTRATION RATE (test code = GFR) mL/min >=60 CREATININE (test code = CREAT) mg/dL 0.55-1.02 BUN/CREATININE RATIO (test code = BUN/CREA) 10-20 TOTAL PROTEIN (test code = PROT) gram/dL 6.4-8.2 ALBUMIN (test code = ALB) g/dL 3.4-5.0 GLOBULIN (test code = GLOB) gram/dL 2.7-4.2 ALBUMIN/GLOBULIN RATIO (test code = A/G) 0.75-1.50 CALCIUM (test code = CA) mg/dL 8.5-10.1 BILIRUBIN TOTAL (test code = BILT) mg/dL 0.0-1.0 SGOT/AST (test code = AST) IUnit/L 15-37 SGPT/ALT (test code = ALT) IUnit/L 12-78 ALKALINE PHOSPHATASE TOTAL (test code = ALKP) IUnit/L 45-117 CBC W/AUTO [id number] 08:04:00* Test Item Value Reference Range Interpretation Comments WHITE BLOOD CELL (test code = WBC) 8.1 K/mm3 4.5-12.5 N RED BLOOD CELL (test code = RBC) 4.56 mill/mm3 3.7-5.2 N HEMOGLOBIN (test code = HGB) 13.0 gram/dL 11.5-15.5 N HEMATOCRIT (test code = HCT) 39.6 % 36.0-46.0 N MEAN CELL VOLUME (test code = MCV) 86.8 fL 80-98 N MEAN CELL HGB (test code = MCH) 28.5 picogram 27.0-33.0 N MEAN CELL HGB CONCETRATION (test code = MCHC) 32.8 gram/dL 33.0-36. 0 L RED CELL DISTRIBUTION WIDTH (test code = RDW) 12.5 % 11.6-16. 2 N RED CELL DISTRIBUTION WIDTH SD (test code = RDW-SD) 39.8 fL 37 .0-51.0 N PLATELET COUNT (test code = PLT) 257 K/mm3 150-450 N MEAN PLATELET VOLUME (test code = MPV) 10.7 fL 6.7-11.0 N NEUTROPHIL % (test code = NT%) 63.6 % 39.0-69.0 N IMMATURE GRANULOCYTE % (test code = IG%) 0.4 % 0.0-5.0 N LYMPHOCYTE % (test code = LY%) 26.1 % 25.0-55.0 N MONOCYTE % (test code = MO%) 6.4 % 0.0-10.0 N EOSINOPHIL % (test code = EO%) 3.3 % 0.0-5.0 N BASOPHIL % (test code = BA%) 0.2 % 0.0-1.0 N NUCLEATED RBC % (test code = NRBC%) 0.0 % 0-0 N NEUTROPHIL # (test code = NT#) 5.12 K/mm3 1.8-7.7 N IMMATURE GRANULOCYTE # (test code = IG#) 0.03 x10 3/uL 0-0.03 N LYMPHOCYTE # (test code = LY#) 2.11 K/mm3 1.0-5.0 N MONOCYTE # (test code = MO#) 0.52 K/mm3 0-0.8 N EOSINOPHIL # (test code = EO#) 0.27 K/mm3 0.0-0.5 N BASOPHIL # (test code = BA#) 0.02 K/mm3 0.0-0.2 N NUCLEATED RBC # (test code = NRBC#) 0.00 K/mm3 0.0-0.1 N MANUAL DIFF REQUIRED (test code = MDIFF) NO [id number] 20:47:00* Test Item Value Reference Range Interpretation Comments GLUBED (test code = GLUBED) 142 mg/dL 74-106 H Performed by certified vegetable washing machine operator at [facility] BASIC METABOLIC [id number] 19:15:00* Test Item Value Reference Range Interpretation Comments SODIUM (test code = NA) 144 mmol/L 136-145 N POTASSIUM (test code = K) 3.3 mmol/L 3.5-5.1 L CHLORIDE (test code = CL) 110.0 mmol/L 98-107 H CARBON DIOXIDE (test code = CO2) 25.0 mmol/L 21-32 N ANION GAP (test code = GAP) 12.3 10-20 N GLUCOSE (test code = GLU) 99 mg/dL 74-106 N BLOOD UREA NITROGEN (test code = BUN) 5 mg/dL 7-18 L GLOMERULAR FILTRATION RATE (test code = GFR) > 60 mL/min >=60 Estimated GFR by using Modified MDRD formula.Chronic kidney disease is defined as either kidney damageor GFR <60 mL/min/1.73 m2 for >3 months. CREATININE (test code = CREAT) 0.50 mg/dL 0.55-1.02 L Note change in reference range due to change in reagent. BUN/CREATININE RATIO (test code = BUN/CREA) 10.1 10-20 N CALCIUM (test code = CA) 8.2 mg/dL 8.5-10.1 L 05/10/19 [id number] 16:58:00* Test Item Value Reference Range Interpretation Comments GLUBED (test code = GLUBED) 112 mg/dL 74-106 H Performed by certified vegetable washing machine operator at [facility] [id number] 12:27:00* Test Item Value Reference Range Interpretation Comments GLUBED (test code = GLUBED) 135 mg/dL 74-106 H Performed by certified vegetable washing machine operator at [facility] - NM GASTRIC [id number] 11:13:00 FAX: Eryn Fields MD [phone] [place]: St: [facility] FAX: Ata Andrade MD [phone] Name: STAR CLIFFORD [facility] : 1965 Age/S: 54/F [address] [facility] Unit #: [id number] Loc: [id number] [place] [address] Phys: Ata Michaels MD Acct: [id number] Dis Date: Status: ADM IN PHONE #: [phone] Exam Date: 05/10/2019 1100 FAX #: [phone] Reason: intractable emesis EXAMS: CPT CODE: [id number] NM GASTRIC EMPTYING 62009 HISTORY: intractable emesis EXAM: NUCLEAR MEDICINE GASTRIC EMPTYING STUDY. COMPARISON: No relevant prior TECHNIQUE: After patient ingested 1 mCi TC 99m sulfur colloid mixed with oatmeal, sequential imaging was acquired over the anterior abdomen for 90 minutes. FINDINGS: There is no significant gastric emptying appreciated during the study. T 1/2 for gastric emptying was un able to be calculated due to the absence of any appreciable gastric emptyi ng. IMPRESSION: No appreciable gastric emptying may be s een with either gastroparesis or gastric outlet obstruction. at 1113 Reported and signed by: Maxwell Arenas MD CC: Tanmay Sawant MD; Ata Michaels MD Technologist: Sabra Lacy RT(N) Trnscrd Date/Time/By: 05/10/2019 (1113) : By: Rocky.[email or web address] Orig Print D/T: S: 05/10/2019 (1116) PAGE 1 Signed Report GLUBED 2019-05-10 06:25:00* Test Item Value Reference Range Interpretation Comments GLUBED (test code = GLUBED) 108 mg/dL 74-106 H Performed by certified vegetable washing machine operator at [facility] [id number] 20:37:00* Test Item Value Reference Range Interpretation Comments GLUBED (test code = GLUBED) 119 mg/dL 74-106 H Performed by certified vegetable washing machine operator at [facility] [id number] 17:15:00* Test Item Value Reference Range Interpretation Comments GLUBED (test code = GLUBED) 108 mg/dL 74-106 H Performed by certified vegetable washing machine operator at [facility] [id number] 13:12:00* Test Item Value Reference Range Interpretation Comments GLUBED (test code = GLUBED) 125 mg/dL 74-106 H Performed by certified vegetable washing machine operator at [facility] COMPREHENSIVE METABOLIC [id number] 11:06:00* Test Item Value Reference Range Interpretation Comments SODIUM (test code = NA) 141 mmol/L 136-145 N POTASSIUM (test code = K) 3.0 mmol/L 3.5-5.1 L CHLORIDE (test code = CL) 107.0 mmol/L 98-107 N CARBON DIOXIDE (test code = CO2) 26.0 mmol/L 21-32 N ANION GAP (test code = GAP) 11.0 10-20 N GLUCOSE (test code = GLU) 131 mg/dL 74-106 H BLOOD UREA NITROGEN (test code = BUN) 9 mg/dL 7-18 N GLOMERULAR FILTRATION RATE (test code = GFR) > 60 mL/min >=60 Estimated GFR by using Modified MDRD formula.Chronic kidney disease is defined as either kidney damageor GFR <60 mL/min/1.73 m2 for >3 months. CREATININE (test code = CREAT) 0.60 mg/dL 0.55-1.02 N Note change in reference range due to change in reagent. BUN/CREATININE RATIO (test code = BUN/CREA) 14.7 10-20 N TOTAL PROTEIN (test code = PROT) 6.3 gram/dL 6.4-8.2 L ALBUMIN (test code = ALB) 1.8 g/dL 3.4-5.0 L GLOBULIN (test code = GLOB) 4.5 gram/dL 2.7-4.2 H ALBUMIN/GLOBULIN RATIO (test code = A/G) 0.4 0.75-1.50 L CALCIUM (test code = CA) 8.7 mg/dL 8.5-10.1 N BILIRUBIN TOTAL (test code = BILT) 0.50 mg/dL 0.0-1.0 N SGOT/AST (test code = AST) 27 IUnit/L 15-37 N SGPT/ALT (test code = ALT) 26 IUnit/L 12-78 N ALKALINE PHOSPHATASE TOTAL (test code = ALKP) 99 IUnit/L 45-117 N Note change in reference range due to change in reagent. PT WENT TO PROCEDURE PER ANNA JAMISON([id number]) @V.LAB.SP309/ 0848COMPREHENSIVE METABOLIC [id number] 10:58:00* Test Item Value Reference Range Interpretation Comments SODIUM (test code = NA) 141 mmol/L 136-145 N POTASSIUM (test code = K) 3.0 mmol/L 3.5-5.1 L CHLORIDE (test code = CL) 107.0 mmol/L 98-107 N CARBON DIOXIDE (test code = CO2) mmol/L 21-32 ANION GAP (test code = GAP) 10-20 GLUCOSE (test code = GLU) mg/dL 74-106 BLOOD UREA NITROGEN (test code = BUN) mg/dL 7-18 GLOMERULAR FILTRATION RATE (test code = GFR) mL/min >=60 CREATININE (test code = CREAT) mg/dL 0.55-1.02 BUN/CREATININE RATIO (test code = BUN/CREA) 10-20 TOTAL PROTEIN (test code = PROT) gram/dL 6.4-8.2 ALBUMIN (test code = ALB) g/dL 3.4-5.0 GLOBULIN (test code = GLOB) gram/dL 2.7-4.2 ALBUMIN/GLOBULIN RATIO (test code = A/G) 0.75-1.50 CALCIUM (test code = CA) mg/dL 8.5-10.1 BILIRUBIN TOTAL (test code = BILT) mg/dL 0.0-1.0 SGOT/AST (test code = AST) IUnit/L 15-37 SGPT/ALT (test code = ALT) IUnit/L 12-78 ALKALINE PHOSPHATASE TOTAL (test code = ALKP) IUnit/L 45-117 PT WENT TO PROCEDURE PER ANNA JAMISON([id number]) @V.LAB.SP 0848CBC W/AUTO [id number] 10:37:00* Test Item Value Reference Range Interpretation Comments WHITE BLOOD CELL (test code = WBC) 11.3 K/mm3 4.5-12.5 N RED BLOOD CELL (test code = RBC) 4.26 mill/mm3 3.7-5.2 N HEMOGLOBIN (test code = HGB) 12.2 gram/dL 11.5-15.5 RESULT VERIFIED BY REPEAT ANALYSIS HEMATOCRIT (test code = HCT) 37.7 % 36.0-46.0 N MEAN CELL VOLUME (test code = MCV) 88.5 fL 80-98 N MEAN CELL HGB (test code = MCH) 28.6 picogram 27.0-33.0 N MEAN CELL HGB CONCETRATION (test code = MCHC) 32.4 gram/dL 33.0-36. 0 L RED CELL DISTRIBUTION WIDTH (test code = RDW) 12.6 % 11.6-16. 2 N RED CELL DISTRIBUTION WIDTH SD (test code = RDW-SD) 41.1 fL 37 .0-51.0 N PLATELET COUNT (test code = PLT) 220 K/mm3 150-450 N MEAN PLATELET VOLUME (test code = MPV) 10.7 fL 6.7-11.0 N NEUTROPHIL % (test code = NT%) 80.7 % 39.0-69.0 H IMMATURE GRANULOCYTE % (test code = IG%) 0.6 % 0.0-5.0 N LYMPHOCYTE % (test code = LY%) 10.9 % 25.0-55.0 L MONOCYTE % (test code = MO%) 5.1 % 0.0-10.0 N EOSINOPHIL % (test code = EO%) 2.5 % 0.0-5.0 N BASOPHIL % (test code = BA%) 0.2 % 0.0-1.0 N NUCLEATED RBC % (test code = NRBC%) 0.0 % 0-0 N NEUTROPHIL # (test code = NT#) 9.08 K/mm3 1.8-7.7 H IMMATURE GRANULOCYTE # (test code = IG#) 0.07 x10 3/uL 0-0.03 H LYMPHOCYTE # (test code = LY#) 1.23 K/mm3 1.0-5.0 N MONOCYTE # (test code = MO#) 0.57 K/mm3 0-0.8 N EOSINOPHIL # (test code = EO#) 0.28 K/mm3 0.0-0.5 N BASOPHIL # (test code = BA#) 0.02 K/mm3 0.0-0.2 N NUCLEATED RBC # (test code = NRBC#) 0.00 K/mm3 0.0-0.1 N PT WENT TO [facility] PER ANNA JAMISON([id number]) @V.LAB.SP309 0848- HEPA IMAG INCL GB W [id number] 09:16:00 FAX: Eryn Fields MD [phone] [place]: B St: ADM FAX: Ata Andrade MD [phone] Name: STAR CLIFFORD [facility] : 1965 Age/S: 54/F [address] [facility] Unit #: [id number] Loc: V.1 [place] [address] Phys: Ata Michaels MD Acct: [id number] Dis Date: Status: ADM IN PHONE #: [phone] Exam Date: 05/09/2019899 FAX #: [phone] Reason: post cholecystectomy pain possible bile leak EXAMS: CPT CODE: [id number] HEPA IMAG INCL GB W PHA 05348 HISTORY: post cholecystectomy pain possible bile leak EXAM: NUCLEAR MEDICINE HEPATOBILIARY SCAN. TECHNIQUE: After IV injection of 5.5 mCi Tc 99m Choletec, sequential planar images were obtained over the upper abdomen out to 60 minutes. FINDINGS: Homogeneous distribution of radiopharmaceutical in the liver. Gallbladder is surgically absent.. Normal accumulation of radiopharmaceutical in small bowel by 15 minutes. No tracer uptake into the gallbladder fossa. IMPRESSION: No evidence of biliary obstruction and no evidence of bile leak into the peritoneal cavity. at 0916 Reported and signed by: Maxwell Arenas MD CC: Eryn Sawant MD; Ata Michaels MD Technologist: Sabra Lacy RT(N) Trnscrd Date/Time/By: 05/09/2019 (0916) : By: MartinRR31 Orig Print D/T: S: 05/09/2019 (20) PAGE 1 Signed Report [id number] 05:08:00* Test Item Value Reference Range Interpretation Comments GLUBED (test code = GLUBED) 127 mg/dL 74-106 H Performed by certified vegetable washing machine operator at [facility] [id number] 20:17:00* Test Item Value Reference Range Interpretation Comments GLUBED (test code = GLUBED) 161 mg/dL 74-106 H Performed by certified vegetable washing machine operator at [facility] [id number] 16:47:00* Test Item Value Reference Range Interpretation Comments GLUBED (test code = GLUBED) 150 mg/dL 74-106 H Performed by certified vegetable washing machine operator at [facility] [id number] 13:05:00* Test Item Value Reference Range Interpretation Comments GLUBED (test code = GLUBED) 153 mg/dL 74-106 H Performed by certified vegetable washing machine operator at [facility] COMPREHENSIVE METABOLIC [id number] 10:43:00* Test Item Value Reference Range Interpretation Comments SODIUM (test code = NA) 143 mmol/L 136-145 RESU LT VERIFIED BY REPEAT ANALYSIS POTASSIUM (test code = K) 3.9 mmol/L 3.5-5.1 N CHLORIDE (test code = CL) 109.0 mmol/L 98-107 H CARBON DIOXIDE (test code = CO2) 22.0 mmol/L 21-32 N ANION GAP (test code = GAP) 15.9 10-20 N GLUCOSE (test code = GLU) 148 mg/dL 74-106 H BLOOD UREA NITROGEN (test code = BUN) 11 mg/dL 7-18 N GLOMERULAR FILTRATION RATE (test code = GFR) > 60 mL/min >=60 Estimated GFR by using Modified MDRD formula.Chronic kidney disease is defined as either kidney damageor GFR <60 mL/min/1.73 m2 for >3 months. CREATININE (test code = CREAT) 0.80 mg/dL 0.55-1.02 N Note change in reference range due to change in reagent. BUN/CREATININE RATIO (test code = BUN/CREA) 13.8 10-20 N TOTAL PROTEIN (test code = PROT) 6.4 gram/dL 6.4-8.2 N ALBUMIN (test code = ALB) 2.2 g/dL 3.4-5.0 L GLOBULIN (test code = GLOB) 4.2 gram/dL 2.7-4.2 N ALBUMIN/GLOBULIN RATIO (test code = A/G) 0.5 0.75-1.50 L CALCIUM (test code = CA) 8.5 mg/dL 8.5-10.1 N BILIRUBIN TOTAL (test code = BILT) 0.60 mg/dL 0.0-1.0 N SGOT/AST (test code = AST) 39 IUnit/L 15-37 H SGPT/ALT (test code = ALT) 31 IUnit/L 12-78 N ALKALINE PHOSPHATASE TOTAL (test code = ALKP) 94 IUnit/L 45-117 N Note change in reference range due to change in reagent. [id number] 10:43:00* Test Item Value Reference Range Interpretation Comments MAGNESIUM (test code = MAG) 1.6 mg/dL 1.8-2.4 L CBC W/AUTO [id number] 10:21:00* Test Item Value Reference Range Interpretation Comments WHITE BLOOD CELL (test code = WBC) 18.4 K/mm3 4.5-12.5 H RED BLOOD CELL (test code = RBC) 4.90 mill/mm3 3.7-5.2 N HEMOGLOBIN (test code = HGB) 14.3 gram/dL 11.5-15.5 N HEMATOCRIT (test code = HCT) 43.7 % 36.0-46.0 N MEAN CELL VOLUME (test code = MCV) 89.2 fL 80-98 N MEAN CELL HGB (test code = MCH) 29.2 picogram 27.0-33.0 N MEAN CELL HGB CONCETRATION (test code = MCHC) 32.7 gram/dL 33.0-36. 0 L RED CELL DISTRIBUTION WIDTH (test code = RDW) 12.7 % 11.6-16. 2 N RED CELL DISTRIBUTION WIDTH SD (test code = RDW-SD) 41.7 fL 37 .0-51.0 N PLATELET COUNT (test code = PLT) 214 K/mm3 150-450 RESULT VERIFIED BY REPEAT ANALYSIS MEAN PLATELET VOLUME (test code = MPV) 11.2 fL 6.7-11.0 H NEUTROPHIL % (test code = NT%) 84.5 % 39.0-69.0 H IMMATURE GRANULOCYTE % (test code = IG%) 0.7 % 0.0-5.0 N LYMPHOCYTE % (test code = LY%) 9.1 % 25.0-55.0 L MONOCYTE % (test code = MO%) 4.0 % 0.0-10.0 N EOSINOPHIL % (test code = EO%) 1.4 % 0.0-5.0 N BASOPHIL % (test code = BA%) 0.3 % 0.0-1.0 N NUCLEATED RBC % (test code = NRBC%) 0.0 % 0-0 N NEUTROPHIL # (test code = NT#) 15.60 K/mm3 1.8-7.7 H IMMATURE GRANULOCYTE # (test code = IG#) 0.12 x10 3/uL 0-0.03 H LYMPHOCYTE # (test code = LY#) 1.67 K/mm3 1.0-5.0 N MONOCYTE # (test code = MO#) 0.73 K/mm3 0-0.8 N EOSINOPHIL # (test code = EO#) 0.26 K/mm3 0.0-0.5 N BASOPHIL # (test code = BA#) 0.05 K/mm3 0.0-0.2 N NUCLEATED RBC # (test code = NRBC#) 0.00 K/mm3 0.0-0.1 N [id number] 05:37:00* Test Item Value Reference Range Interpretation Comments GLUBED (test code = GLUBED) 163 mg/dL 74-106 H Performed by certified vegetable washing machine operator at [facility] LACTIC [id number] 23:47:00* Test Item Value Reference Range Interpretation Comments LACTIC ACID (test code = LACT) 2.3 mmol/L 0.4-1.9 HH Results called to [id number] by V.LAB.HELEN 05/07/19 2347Critical results verified and read back by Nurse? Y [id number] 21:23:00* Test Item Value Reference Range Interpretation Comments GLUBED (test code = GLUBED) 202 mg/dL 74-106 H Performed by certified vegetable washing machine operator at [facility] LACTIC [id number] 20:58:00* Test Item Value Reference Range Interpretation Comments LACTIC ACID (test code = LACT) 2.3 mmol/L 0.4-1.9 HH Results called to [id number] by V.LAB.LT 05/07/192056Critical results verified and read back by Nurse? Y LACTIC [id number] 17:29:00* Test Item Value Reference Range Interpretation Comments LACTIC ACID (test code = LACT) 2.7 mmol/L 0.4-1.9 HH Results called to [id number] by V.LAB.KP1 05/07/19 1729Critical results verified and read back by Nurse? Y - CT ABD PELVIS [id number] 16:48:00 [facility] 1965 Age/S: 54 / F [address] Unit #: [id number] Loc: E[place] [address] Phys: Goyo Hodges MD Acct: [id number] Dis Date: Status: REG ER PHONE #: [phone] Exam Date: 05/07/2019 1638 FAX #: [phone] Reason: ABD PAIN, VOMITING EXAMS: CPT CODE: [id number] CT ABD PELVIS W/CONT 59129 REASON FOR EXAM: ABD PAIN, VOMITING EXAM ORDER DATE: 05/07/2019 2:47 PM Ordering MKlaudia: Goyo Hodges MD PROCEDURE: - CT ABD PELVIS W/CONT COMPARISON: 04/29/2019 FINDINGS: CT images of the abdomen and pelvis were obtained with IV and without oral contrast at 5mm. Dose modulation, iterative reconstruction, and/or weight based adjustment of the MA/KV was utilized to reduce the radiation dose to as low as reasonably achievable. Intravenous contrast: 100cc of Omnipaque 370. The spleen, pancreas are grossly within normal limits. The liver is diffusely hypodense. The patient is status post cholecystectomy The kidneys are within normal limits. The urinary bladder is contracted The colon, small bowel, and stomach are within normal limits without evidence of obstruction. The appendix was not seen No evidence of free air . The uterus is unremarkable. IMPRESSION: Diffuse fatty infiltration of the liver. Minimal nonspecific free fluid in the cul-de-sac. Previously seen right surgical drain has been removed. at 6865 Reported and signed by: Soham Mera M.D. CC: Goyo Hodges MD Technologist:Mary Kay Boyle RT(R); [place] CTDI: DLP: Trnscb Date/Time: 05/07/2019 (2422) [email or web address] Orig Print D/T: S: 05/07/2019 (9078) PAGE 1 Signed Report PROCALCITONIN (PCT)2019-05-07 16:27:00* Test Item Value Reference Range Interpretation Comments PROCALCITONIN (PCT) (test code = PROCAL) 1.45 ng/ml Concentration Interpretation (ng/mL) <0.51 Sepsis is not likely. Local bacterial infection is possible. (LOW RISK for progression to Sepsis) 0.51 - 2.00 Sepsis is possible, but other conditions are known to elevate PCT as well. (MODERATE RISK for progression to Sepsis) > 2.00 Sepsis is likely, unless other causes are known. (HIGH RISK for progression to Severe Sepsis or Septic Shock) 10.00 High likelihood of Severe Sepsis or Septic or higher Shock. *Increased PCT levels may not always be related to systemic bacterial infection.*Low PCT levels do not automatically exclude the presence of bacterial infection.*All results should be interpreted taking into account the patients history. LACTIC [id number] 15:33:00* Test Item Value Reference Range Interpretation Comments LACTIC ACID (test code = LACT) 2.7 mmol/L 0.4-1.9 HH Results called to DR Tod SwanLAB.KP1 05/07/19 1533Critical results verified and read back by Nurse? Y BASIC METABOLIC [id number] 15:33:00* Test Item Value Reference Range Interpretation Comments SODIUM (test code = NA) 135 mmol/L 136-145 L POTASSIUM (test code = K) 3.8 mmol/L 3.5-5.1 N CHLORIDE (test code = CL) 99.0 mmol/L 98-107 N CARBON DIOXIDE (test code = CO2) 27.0 mmol/L 21-32 N ANION GAP (test code = GAP) 12.8 10-20 N GLUCOSE (test code = GLU) 358 mg/dL 74-106 H BLOOD UREA NITROGEN (test code = BUN) 11 mg/dL 7-18 N GLOMERULAR FILTRATION RATE (test code = GFR) 46 mL/min >=60 Estimated GFR by using Modified MDRD formula.Chronic kidney disease is defined as either kidney damageor GFR <60 mL/min/1.73 m2 for >3 months. CREATININE (test code = CREAT) 1.20 mg/dL 0.55-1.02 H Note change in reference range due to change in reagent. BUN/CREATININE RATIO (test code = BUN/CREA) 9.6 10-20 L CALCIUM (test code = CA) 9.7 mg/dL 8.5-10.1 N [id number] 15:33:00* Test Item Value Reference Range Interpretation Comments TROPONIN-I (test code = TROPI) <0.015 ng/mL 0-0.045 N BASIC METABOLIC [id number] 15:25:00* Test Item Value Reference Range Interpretation Comments SODIUM (test code = NA) 135 mmol/L 136-145 L POTASSIUM (test code = K) 3.8 mmol/L 3.5-5.1 N CHLORIDE (test code = CL) 99.0 mmol/L 98-107 N CARBON DIOXIDE (test code = CO2) mmol/L 21-32 ANION GAP (test code = GAP) 10-20 GLUCOSE (test code = GLU) mg/dL 74-106 BLOOD UREA NITROGEN (test code = BUN) mg/dL 7-18 GLOMERULAR FILTRATION RATE (test code = GFR) mL/min >=60 CREATININE (test code = CREAT) mg/dL 0.55-1.02 BUN/CREATININE RATIO (test code = BUN/CREA) 10-20 CALCIUM (test code = CA) mg/dL 8.5-10.1 [id number] 15:25:00* Test Item Value Reference Range Interpretation Comments TROPONIN-I (test code = TROPI) ng/mL 0-0.045 - XR CHEST 1 [id number] 15:23:00 FAX: Goyo Ambrosio [phone] [place]: B St: REG Name: STAR CARREON [facility] : [birth year] Age/S: 54/F [address] Unit #: [id number] Loc: E[place] [address] Phys: Goyo Hodges MD Acct: [id number] Dis Date: Status: REG ER PHONE #: [phone] Exam Date: 05/07/2019 1516 FAX #: [phone] Reason: COUGH EXAMS: CPT CODE: [id number] XR CHEST 1 V 18521 REASON FOR EXAM: COUGH EXAM ORDER DATE: 05/07/2019 1:59 PM Ordering MKlaudia: Goyo Hodges MD PROCEDURE: - XR CHEST 1 V COMPARI SON: 04/23/2019 FINDINGS: Portable AP frontal view of the chest obt ained at 3:16 PM shows clear lungs without evidence of consolidation. Ther e is no evidence of effusion. The heart size is within normal limits. Pulmonary vasculatures are unremarkable. IMPRESSION: Hypoaera bindu lungs with atelectasis of the left base at 1523 Reported and signed by: Soham Mera M.D. CC: Goyo Hodges MD Technologist: RT [place]rence(R) Trnscrd Date/Time/By: 05/07/2019 (1523) : By: Hope Orig Print D/T: S: 05/07/2019 (6500) PAGE 1 Signed Report CBC W/O [id number] 15:12:00 * Test Item Value Reference Range Interpretation Comments WHITE BLOOD CELL (test code = WBC) 22.9 K/mm3 4.5-12.5 H RED BLOOD CELL (test code = RBC) 5.27 mill/mm3 3.7-5.2 H HEMOGLOBIN (test code = HGB) 15.5 gram/dL 11.5-15.5 N HEMATOCRIT (test code = HCT) 46.9 % 36.0-46.0 H MEAN CELL VOLUME (test code = MCV) 89.0 fL 80-98 N MEAN CELL HGB (test code = MCH) 29.4 picogram 27.0-33.0 N MEAN CELL HGB CONCETRATION (test code = MCHC) 33.0 gram/dL 33.0-36. 0 N RED CELL DISTRIBUTION WIDTH (test code = RDW) 12.8 % 11.6-16. 2 N PLATELET COUNT (test code = PLT) 307 K/mm3 150-450 N MEAN PLATELET VOLUME (test code = MPV) 10.7 fL 6.7-11.0 N CBC W/O [id number] 15:09:00* Test Item Value Reference Range Interpretation Comments WHITE BLOOD CELL (test code = WBC) K/mm3 4.5-12.5 RED BLOOD CELL (test code = RBC) mill/mm3 3.7-5.2 HEMOGLOBIN (test code = HGB) 15.5 gram/dL 11.5-15.5 N HEMATOCRIT (test code = HCT) % 36.0-46.0 MEAN CELL VOLUME (test code = MCV) fL 80-98 MEAN CELL HGB (test code = MCH) picogram 27.0-33.0 MEAN CELL HGB CONCETRATION (test code = MCHC) gram/dL 33.0-36. 0 RED CELL DISTRIBUTION WIDTH (test code = RDW) % 11.6-16. 2 PLATELET COUNT (test code = PLT) K/mm3 150-450 MEAN PLATELET VOLUME (test code = MPV) fL 6.7-11.0 URINALYSIS [id number] 14:48:00* Test Item Value Reference Range Interpretation Comments UA COLOR (test code = COLU) YELLOW YELLOW UA APPEARANCE (test code = APPU) CLOUDY CLEAR A UA GLUCOSE DIPSTICK (test code = DGLUU) 300-500 (3+) mg/dL NEGATIVE UA BILIRUBIN DIPSTICK (test code = BILU) NEGATIVE NEGATIVE UA KETONE DIPSTICK (test code = KETU) NEGATIVE mg/dL NEGATIVE UA SPECIFIC GRAVITY (test code = SGU) 1.010 1.001-1.035 UA BLOOD DIPSTICK (test code = LILLY) TRACE NEGATIVE UA PH DIPSTICK (test code = YARA) 7.0 5.0-8.0 UA PROTEIN DIPSTICK (test code = PROU) TRACE (15) mg/dL Neg-15 UA UROBILINIOGEN DIPSTICK (test code = URO) 1 mg/dL (1+) mg/dL 0.0 -0.2 UA NITRITE DIPSTICK (test code = BETTINA) NEGATIVE NEGATIVE UA LEUKOCYTE ESTERASE W REFLEX (test code = LEUUR) 2+ NEG ATIVE A UA WBC (test code = WBCU) 51-100 per HPF 0-5 A UA RBC (test code = RBCU) 0-2 #/HPF 0-5 UA WBC CLUMPS (test code = WBCUCL) 3-6 /HPF NONE A UA EPITHELIAL CELLS (test code = EPIU) MANY per HPF FEW UA BACTERIA (test code = BACU) FEW #/HPF NONE A UA MUCUS (test code = MUCU) FEW #/LPF FEW Urine Source? Clean CatchURINALYSIS [id number] 14:42:00* Test Item Value Reference Range Interpretation Comments UA COLOR (test code = COLU) YELLOW YELLOW UA APPEARANCE (test code = APPU) CLOUDY CLEAR A UA GLUCOSE DIPSTICK (test code = DGLUU) 300-500 (3+) mg/dL NEGATIVE UA BILIRUBIN DIPSTICK (test code = BILU) NEGATIVE NEGATIVE UA KETONE DIPSTICK (test code = KETU) NEGATIVE mg/dL NEGATIVE UA SPECIFIC GRAVITY (test code = SGU) 1.010 1.001-1.035 UA BLOOD DIPSTICK (test code = LILLY) TRACE NEGATIVE UA PH DIPSTICK (test code = YARA) 7.0 5.0-8.0 UA PROTEIN DIPSTICK (test code = PROU) TRACE (15) mg/dL Neg-15 UA UROBILINIOGEN DIPSTICK (test code = URO) 1 mg/dL (1+) mg/dL 0.0 -0.2 UA NITRITE DIPSTICK (test code = BETTINA) NEGATIVE NEGATIVE UA LEUKOCYTE ESTERASE W REFLEX (test code = LEUUR) 2+ NEG ATIVE A UA WBC (test code = WBCU) per HPF 0-5 UA RBC (test code = RBCU) per HPF 0-5 UA EPITHELIAL CELLS (test code = EPIU) per HPF Few UA BACTERIA (test code = BACU) per HPF NONE Urine Source? Clean [id number] 11:17:00 RUN DATE: 05/07/19 [facility] PAGE 1 RUN TIME: 1117 Specimen Inqui ry RUN USER: INTERFACE PATIENT: STAR CLIFFORD ACCT #: [id number] LOC: [place] U #: [id number] AGE/SX: 54/F ROOM: [facility] RE04/26/19REG DR: Vitaliy Edgar MD : 61 BED: A DIS: 05/01/19 STATUS: DIS IN TLOC: SPEC #: [id number] RECD: 04/29/19 STATUS: [facility] #: [id number] JAMAL: 04/26/19-13[address] [facility] [address]: Ata Michaels MD ENTERED: 04/29/19 SP TYPE: GALLBLKIET SMALLS DR: Benny Ge MD, Daniel Haryanto MD Lam, David N MDORDERED: GROSS COPIES TO: Benny Ge MD [address] [place], [place] [address] Moshe Oh MD [address] [place], [place] [id number] Ata Michaels MD [address] [place] [address] MARKERS: ABNORMAL TISSUE, GA LLBLADDER PROCEDURES: GROSS (05/02/19-134) TISSUES: GALLBLADDER, NOS CLINICAL HISTORY COLLECTION DATE: 04/26/19 FINAL DIAGNOSIS G allbladder, cholecystectomy: CHRONIC CHOLECYSTITIS WITH MILD MURAL FIBROS IS CHOLELITHIASIS SMALL FRAGMENT OF ATTACHED HEPATIC TISSUE WITH M ARKED DIFFUSE MACROVESICULAR STEATOSIS FEW UNREMARKABLE BILE PAUL TS IN AREA OF HEPATIC TISSUE NEGATIVE FOR MALIGNANCY RRB/sm CONTINUED ON NEXT PAGE RUN DATE: 0 05/07/19 [facility] PAGE 2 RUN TIME: 1117 Specimen Inquiry R UN USER: INTERFACE --- ---------SPEC #: [id number] PATIENT: HILDA BARTONSTAR #[id number] (Continued) FINAL DIAGNOSIS (Continued) A 11542 MACROSCOPIC The specimen is received in formalin, lizzie led with the patient's name and identified as "gallbladder". It consists of a gallbladder which is received in two portions and measures 6.2 x 4.4 x 1.7 cm on reconstruction. Also received in the same container are two gallstones wh ich are black-dark green measuring 4.7 and 0.9 cm. The serosal surface of the gallbladder is unremarkable. The mucosal surface is smooth. The gallbladder wall measures 0.2 cm in thickness. Samples of the specimen are submitted for microscopic evaluation in a single cassette. GROSS PERFORMED AT [facility] [address] [place] [address] (p)[phone] MICROSCOPIC All of the sta ins, including any controls performed, stain appropriately. MICROSCOPIC PE RFORMED AT [facility] [address] [place] [address] [phone])[phone] PERFORMING SITE Diagno sis performed at: [facility] [address] [place] [address] Signed SIGNATURE ON FILE Ignacio Tan MD 05/07/19 1117 END OF REPORT [id number] 12:58:00* Test Item Value Reference Range Interpretation Comments GLUBED (test code = GLUBED) 163 mg/dL 74-106 H Performed by certified vegetable washing machine operator at [facility] [id number] 17:48:00* Test Item Value Reference Range Interpretation Comments GLUBED (test code = GLUBED) 151 mg/dL 74-106 H Performed by certified vegetable washing machine operator at [facility] [id number] 07:35:00* Test Item Value Reference Range Interpretation Comments GLUBED (test code = GLUBED) 150 mg/dL 74-106 H Performed by certified vegetable washing machine operator at [facility] BASIC METABOLIC [id number] 06:45:00* Test Item Value Reference Range Interpretation Comments SODIUM (test code = NA) 142 mmol/L 136-145 N POTASSIUM (test code = K) 4.3 mmol/L 3.5-5.1 N CHLORIDE (test code = CL) 110.0 mmol/L 98-107 H CARBON DIOXIDE (test code = CO2) 21.0 mmol/L 21-32 N ANION GAP (test code = GAP) 15.3 10-20 N GLUCOSE (test code = GLU) 160 mg/dL 74-106 H BLOOD UREA NITROGEN (test code = BUN) 10 mg/dL 7-18 N GLOMERULAR FILTRATION RATE (test code = GFR) > 60 mL/min >=60 Estimated GFR by using Modified MDRD formula.Chronic kidney disease is defined as either kidney damageor GFR <60 mL/min/1.73 m2 for >3 months. CREATININE (test code = CREAT) 0.50 mg/dL 0.55-1.02 L Note change in reference range due to change in reagent. BUN/CREATININE RATIO (test code = BUN/CREA) 18.6 10-20 N CALCIUM (test code = CA) 8.8 mg/dL 8.5-10.1 N BASIC METABOLIC [id number] 06:38:00* Test Item Value Reference Range Interpretation Comments SODIUM (test code = NA) 142 mmol/L 136-145 N POTASSIUM (test code = K) 4.3 mmol/L 3.5-5.1 N CHLORIDE (test code = CL) 110.0 mmol/L 98-107 H CARBON DIOXIDE (test code = CO2) mmol/L 21-32 ANION GAP (test code = GAP) 10-20 GLUCOSE (test code = GLU) mg/dL 74-106 BLOOD UREA NITROGEN (test code = BUN) mg/dL 7-18 GLOMERULAR FILTRATION RATE (test code = GFR) mL/min >=60 CREATININE (test code = CREAT) mg/dL 0.55-1.02 BUN/CREATININE RATIO (test code = BUN/CREA) 10-20 CALCIUM (test code = CA) mg/dL 8.5-10.1 [id number] 20:50:00* Test Item Value Reference Range Interpretation Comments GLUBED (test code = GLUBED) 177 mg/dL 74-106 H Performed by certified vegetable washing machine operator at [facility] [id number] 17:19:00* Test Item Value Reference Range Interpretation Comments GLUBED (test code = GLUBED) 211 mg/dL 74-106 H Performed by certified vegetable washing machine operator at [facility] [id number] 12:24:00* Test Item Value Reference Range Interpretation Comments GLUBED (test code = GLUBED) 104 mg/dL 74-106 N Performed by certified vegetable washing machine operator at [facility] [id number] 07:09:00* Test Item Value Reference Range Interpretation Comments GLUBED (test code = GLUBED) 172 mg/dL 74-106 H Performed by certified vegetable washing machine operator at [facility] COMPREHENSIVE METABOLIC [id number] 07:08:00* Test Item Value Reference Range Interpretation Comments SODIUM (test code = NA) 141 mmol/L 136-145 N POTASSIUM (test code = K) 3.7 mmol/L 3.5-5.1 N CHLORIDE (test code = CL) 108.0 mmol/L 98-107 H CARBON DIOXIDE (test code = CO2) 25.0 mmol/L 21-32 N ANION GAP (test code = GAP) 11.7 10-20 N GLUCOSE (test code = GLU) 183 mg/dL 74-106 H BLOOD UREA NITROGEN (test code = BUN) 10 mg/dL 7-18 N GLOMERULAR FILTRATION RATE (test code = GFR) > 60 mL/min >=60 Estimated GFR by using Modified MDRD formula.Chronic kidney disease is defined as either kidney damageor GFR <60 mL/min/1.73 m2 for >3 months. CREATININE (test code = CREAT) 0.60 mg/dL 0.55-1.02 N Note change in reference range due to change in reagent. BUN/CREATININE RATIO (test code = BUN/CREA) 16.2 10-20 N TOTAL PROTEIN (test code = PROT) 6.4 gram/dL 6.4-8.2 N ALBUMIN (test code = ALB) 2.4 g/dL 3.4-5.0 L GLOBULIN (test code = GLOB) 4.0 gram/dL 2.7-4.2 N ALBUMIN/GLOBULIN RATIO (test code = A/G) 0.6 0.75-1.50 L CALCIUM (test code = CA) 8.9 mg/dL 8.5-10.1 N BILIRUBIN TOTAL (test code = BILT) 0.60 mg/dL 0.0-1.0 N SGOT/AST (test code = AST) 39 IUnit/L 15-37 H SGPT/ALT (test code = ALT) 57 IUnit/L 12-78 N ALKALINE PHOSPHATASE TOTAL (test code = ALKP) 94 IUnit/L 45-117 N Note change in reference range due to change in reagent. COMPREHENSIVE METABOLIC [id number] 06:59:00* Test Item Value Reference Range Interpretation Comments SODIUM (test code = NA) 141 mmol/L 136-145 N POTASSIUM (test code = K) 3.7 mmol/L 3.5-5.1 N CHLORIDE (test code = CL) 108.0 mmol/L 98-107 H CARBON DIOXIDE (test code = CO2) mmol/L 21-32 ANION GAP (test code = GAP) 10-20 GLUCOSE (test code = GLU) mg/dL 74-106 BLOOD UREA NITROGEN (test code = BUN) mg/dL 7-18 GLOMERULAR FILTRATION RATE (test code = GFR) mL/min >=60 CREATININE (test code = CREAT) mg/dL 0.55-1.02 BUN/CREATININE RATIO (test code = BUN/CREA) 10-20 TOTAL PROTEIN (test code = PROT) gram/dL 6.4-8.2 ALBUMIN (test code = ALB) g/dL 3.4-5.0 GLOBULIN (test code = GLOB) gram/dL 2.7-4.2 ALBUMIN/GLOBULIN RATIO (test code = A/G) 0.75-1.50 CALCIUM (test code = CA) mg/dL 8.5-10.1 BILIRUBIN TOTAL (test code = BILT) mg/dL 0.0-1.0 SGOT/AST (test code = AST) IUnit/L 15-37 SGPT/ALT (test code = ALT) IUnit/L 12-78 ALKALINE PHOSPHATASE TOTAL (test code = ALKP) IUnit/L 45-117 CBC W/AUTO [id number] 06:24:00* Test Item Value Reference Range Interpretation Comments WHITE BLOOD CELL (test code = WBC) 8.2 K/mm3 4.5-12.5 N RED BLOOD CELL (test code = RBC) 4.60 mill/mm3 3.7-5.2 N HEMOGLOBIN (test code = HGB) 13.4 gram/dL 11.5-15.5 N HEMATOCRIT (test code = HCT) 41.8 % 36.0-46.0 N MEAN CELL VOLUME (test code = MCV) 90.9 fL 80-98 N MEAN CELL HGB (test code = MCH) 29.1 picogram 27.0-33.0 N MEAN CELL HGB CONCETRATION (test code = MCHC) 32.1 gram/dL 33.0-36. 0 L RED CELL DISTRIBUTION WIDTH (test code = RDW) 13.0 % 11.6-16. 2 N RED CELL DISTRIBUTION WIDTH SD (test code = RDW-SD) 43.5 fL 37 .0-51.0 N PLATELET COUNT (test code = PLT) 216 K/mm3 150-450 N MEAN PLATELET VOLUME (test code = MPV) 10.6 fL 6.7-11.0 N NEUTROPHIL % (test code = NT%) 59.3 % 39.0-69.0 N IMMATURE GRANULOCYTE % (test code = IG%) 0.5 % 0.0-5.0 N LYMPHOCYTE % (test code = LY%) 31.4 % 25.0-55.0 N MONOCYTE % (test code = MO%) 6.3 % 0.0-10.0 N EOSINOPHIL % (test code = EO%) 2.1 % 0.0-5.0 N BASOPHIL % (test code = BA%) 0.4 % 0.0-1.0 N NUCLEATED RBC % (test code = NRBC%) 0.0 % 0-0 N NEUTROPHIL # (test code = NT#) 4.89 K/mm3 1.8-7.7 N IMMATURE GRANULOCYTE # (test code = IG#) 0.04 x10 3/uL 0-0.03 H LYMPHOCYTE # (test code = LY#) 2.59 K/mm3 1.0-5.0 N MONOCYTE # (test code = MO#) 0.52 K/mm3 0-0.8 N EOSINOPHIL # (test code = EO#) 0.17 K/mm3 0.0-0.5 N BASOPHIL # (test code = BA#) 0.03 K/mm3 0.0-0.2 N NUCLEATED RBC # (test code = NRBC#) 0.00 K/mm3 0.0-0.1 N CBC W/AUTO [id number] 06:22:00* Test Item Value Reference Range Interpretation Comments WHITE BLOOD CELL (test code = WBC) K/mm3 4.5-12.5 RED BLOOD CELL (test code = RBC) mill/mm3 3.7-5.2 HEMOGLOBIN (test code = HGB) 13.4 gram/dL 11.5-15.5 N HEMATOCRIT (test code = HCT) 41.8 % 36.0-46.0 N MEAN CELL VOLUME (test code = MCV) fL 80-98 MEAN CELL HGB (test code = MCH) picogram 27.0-33.0 MEAN CELL HGB CONCETRATION (test code = MCHC) gram/dL 33.0-36. 0 RED CELL DISTRIBUTION WIDTH (test code = RDW) % 11.6-16. 2 RED CELL DISTRIBUTION WIDTH SD (test code = RDW-SD) fL 37 .0-51.0 PLATELET COUNT (test code = PLT) K/mm3 150-450 MEAN PLATELET VOLUME (test code = MPV) fL 6.7-11.0 NEUTROPHIL % (test code = NT%) % 39.0-69.0 IMMATURE GRANULOCYTE % (test code = IG%) % 0.0-5.0 LYMPHOCYTE % (test code = LY%) % 25.0-55.0 MONOCYTE % (test code = MO%) % 0.0-10.0 EOSINOPHIL % (test code = EO%) % 0.0-5.0 BASOPHIL % (test code = BA%) % 0.0-1.0 NEUTROPHIL # (test code = NT#) K/mm3 1.8-7.7 LYMPHOCYTE # (test code = LY#) K/mm3 1.0-5.0 MONOCYTE # (test code = MO#) K/mm3 0-0.8 EOSINOPHIL # (test code = EO#) K/mm3 0.0-0.5 BASOPHIL # (test code = BA#) K/mm3 0.0-0.2 - CT ABD PELVIS [id number] 23:07:00 Name: STAR CLIFFORD [facility] : 1965 Age/S: 54 / F [address] Unit #: [id number] Loc: ESA Shah [address] Phys: Tonia Arnold Acct: [id number] Dis Date: Status: ADM IN PHONE #: [phone] Exam Date: 04/29/2019 1825 FAX #: [phone] Reason: RLQ abd pain EXAMS: CPT CODE: [id number] CT ABD PELVIS W/CONT 19228 REASON FOR EXAM: RLQ abd pain EXAM ORDER DATE: 04/29/2019 3:34 PM Ordering MKlaudia: SHALINI Chavez PROCEDURE: - CT ABD PELVIS W/CONT contrast-enhanced axial CT images were acquired through the abdomen/pelvis at 5 mm intervals. Sagittal and coronal reformatted images were generated. Automated exposure control was utilized for this reduction. Phases of contrast: venous and delayed COMPARISON: Abdominal ultrasound April 24, 2019 FINDINGS: Visualized thorax: There is subsegmental atelectasis in the lung bases. Hepatobiliary system: Hepatic steatosis. Gallbladder surgically absent. Surgical drain passes by the gallbladder fossa and terminates in the gastrohepatic space. Pancreas: Normal Spleen: Normal Adrenal glands: Normal Genitourinary system: Simple cortical cyst in the upper pole of the right kidney. Otherwise normal. Gastrointestinal tract and appendix: Prior appendectomy. Remainder of the gastrointestinal tract is within normal limits. Abdominal vascular structures: Mild atherosclerotic disease in the distal aorta Peritoneum and retroperitoneum: No free air. No omental or mesenteric masses. No abnormal lymph nodes. Trace low-density fluid in the pelvis is a n onspecific finding. Musculoskeletal structures and abdominal wall: There is disc degeneration at L5-S1. Degenerative changes are present in the lower PAGE 1 Signed Report (CO NTINUED) Name: STAR CLIFFORD [facility] : 1965 Age/S: 54 / F [address] Unit #: [id number] Loc: ESA Shah [address] Phys: Tonia Hawkins Acct: [id number] Dis Date: Status: ADM IN P RAMÓN #: [phone] Exam Date: 04/29/2019 1825 FAX #: [phone] Reason: RLQ abd pain EX AMS: CPT CODE: [id number] CT A BD PELVIS W/CONT 44492 <Continued> thoracic spine. IMPRESSION: No acute intra-abdominal process. Prior cholecystectomy with surgical drain terminating in the right upper abdomen The gallbladder fossa. No abnormal fluid collections in the gallbladder fossa. Trace pelvic fluid is a no nspecific finding. Severe hepatic steatosis. at 2307 Reported and signed by: Maxwell Arenas MD CC: Eryn Sawant MD; Tonia Arnold Technologist:Mary Kay Boyle RT(R) CTDI: DLP: Trnscb Date/Time: 04/29/2019 (2301) [id number] Orig Print D/T: S: 04/29/2019 (7726) PAGE 2 Signed Report [id number] 20:38:00* Test Item Value Reference Range Interpretation Comments GLUBED (test code = GLUBED) 280 mg/dL 74-106 H Performed by certified vegetable washing machine operator at [facility] [id number] 16:30:00* Test Item Value Reference Range Interpretation Comments GLUBED (test code = GLUBED) 183 mg/dL 74-106 H Performed by certified vegetable washing machine operator at [facility] GASTRIC,[id number] 14:00:00 RUN DATE: 04/29/19 [place] - Lab PAGE 1 RUN TIME: 1401 Specimen Inqui ry RUN USER: INTERFACE PATIENT: STAR CLIFFORD ACCT #: V [id number] LOC: [place] U #: [id number] AGE/SX: 54/F ROOM: [facility] RE04/26/[facility] DR: Eryn Sawant MD : 61 BED: A DIS: STATUS: ADM IN TLOC: SPEC #: [id number] RECD: 04/26/19 STATUS: [facility] #: [id number] JAMAL: 04/25/[address] [facility] [address]: Moshe Oh MD ENTERED: 04/26/19 SP TYPE: GASTRIC BX OTHR DR: Benny Ge MD, Daniel Haryanto MDORDERED: GROSS COPIES TO: Benny Ge MD [address] [place], [place] [address] Moshe Oh MD [address] [place] [address] PROCEDURES: GROSS ( 04/29/19-1146) TISSUES: 1. GASTRIC CORPUS - NODULE 2. ESOPHAGU S, NOS - BX CLINICAL HISTORY COLLECTION DATE: 04/25/2019 DYSPHAG IA POST-OP DIAGNOSIS: REFLUX; GASTRITIS; HIATAL HERNIA FINAL DIAGNOSI S Gastric nodule, biopsy: CHRONIC ACTIVE GASTRITIS WITH REACTIVE EPITH ELIAL CHANGE POSITIVE FOR HELICOBACTER ORGANISMS NEGATIVE FOR INTE STINAL METAPLASIA NEGATIVE FOR MALIGNANCY Esophagus, biopsy: MIXED GLANDULAR AND SQUAMOUS EPITHELIUM WITH MILD ELONGATION OF SQUAM OUS PAPILLAE, BASAL CELL HYPERPLASIA AND FEW INTRAEPITHELIAL LYMPHOCYTE S GASTRIC TYPE GLANDULAR MUCOSA WITH MILD TO MODERATE CHRONIC INFLAMMATIO N NEGATIVE FOR METAPLASIA, DYSPLASIA AND MALIGNANCY COMPATIBLE WIT H MILD REFLUX ESOPHAGITIS CONTINUED ON NEX T PAGE RUN DATE: 04/29/19 [place] - Lab PAGE 2 RUN TIME: 1401 Spec imen Inquiry RUN USER: INTERFACE SPEC #: [id number] PATIENT: MEGAN Hussein STAR BARTON #[id number] (Continued) FINAL DIAGNOSIS (Continued) RRB/ D [id number], 77408, 10275 MACROSCOPIC Specimen (1) is received in formalin, labeled with the patie nt's name, identified as "gastric nodule", and consists of boo-pink biopsy tis hanna measuring 0.3 cm in aggregate, submitted as (1) for H E and giemsa stains. Specimen (2) is received in formalin, labeled with the patient's name, identified as "esophagus", and consists of pink-boo biopsy tissue measuring 0 .25 cm, submitted as (2). GROSS PERFORMED AT [facility] [address] [place] [address] [phone])[phone] MICROSCOPIC Helicobacter organisms are identified in the first specimen by Giemsa stain. No discrete areas of goblet cell met aplasia are identified in the esophageal biopsy by Alcian blue stain. All of the stains, including any controls performed, stain appropriately. MICRO SCOPIC PERFORMED AT [facility] [address] [place] [address] [phone])[phone] PERFORMING SITE Diagnosis performed at: [facility] [address] [place] [address] Signed SIGNATURE ON FILE Ignacio Dee MD 04/29/19 1400 END OF REPORT [id number] 11:19:00* Test Item Value Reference Range Interpretation Comments GLUBED (test code = GLUBED) 125 mg/dL 74-106 H Performed by certified vegetable washing machine operator at [facility] COMPREHENSIVE METABOLIC [id number] 08:06:00* Test Item Value Reference Range Interpretation Comments SODIUM (test code = NA) 141 mmol/L 136-145 N POTASSIUM (test code = K) 3.4 mmol/L 3.5-5.1 L CHLORIDE (test code = CL) 108.0 mmol/L 98-107 H CARBON DIOXIDE (test code = CO2) 24.0 mmol/L 21-32 N ANION GAP (test code = GAP) 12.4 10-20 N GLUCOSE (test code = GLU) 162 mg/dL 74-106 H BLOOD UREA NITROGEN (test code = BUN) 14 mg/dL 7-18 N GLOMERULAR FILTRATION RATE (test code = GFR) > 60 mL/min >=60 Estimated GFR by using Modified MDRD formula.Chronic kidney disease is defined as either kidney damageor GFR <60 mL/min/1.73 m2 for >3 months. CREATININE (test code = CREAT) 0.70 mg/dL 0.55-1.02 N Note change in reference range due to change in reagent. BUN/CREATININE RATIO (test code = BUN/CREA) 21.2 10-20 H TOTAL PROTEIN (test code = PROT) 6.5 gram/dL 6.4-8.2 N ALBUMIN (test code = ALB) 2.4 g/dL 3.4-5.0 L GLOBULIN (test code = GLOB) 4.1 gram/dL 2.7-4.2 N ALBUMIN/GLOBULIN RATIO (test code = A/G) 0.6 0.75-1.50 L CALCIUM (test code = CA) 9.2 mg/dL 8.5-10.1 N BILIRUBIN TOTAL (test code = BILT) 0.70 mg/dL 0.0-1.0 N SGOT/AST (test code = AST) 49 IUnit/L 15-37 H SGPT/ALT (test code = ALT) 69 IUnit/L 12-78 N ALKALINE PHOSPHATASE TOTAL (test code = ALKP) 100 IUnit/L 45-117 N Note change in reference range due to change in reagent. COMPREHENSIVE METABOLIC [id number] 07:57:00* Test Item Value Reference Range Interpretation Comments SODIUM (test code = NA) 141 mmol/L 136-145 N POTASSIUM (test code = K) 3.4 mmol/L 3.5-5.1 L CHLORIDE (test code = CL) 108.0 mmol/L 98-107 H CARBON DIOXIDE (test code = CO2) mmol/L 21-32 ANION GAP (test code = GAP) 10-20 GLUCOSE (test code = GLU) mg/dL 74-106 BLOOD UREA NITROGEN (test code = BUN) mg/dL 7-18 GLOMERULAR FILTRATION RATE (test code = GFR) mL/min >=60 CREATININE (test code = CREAT) mg/dL 0.55-1.02 BUN/CREATININE RATIO (test code = BUN/CREA) 10-20 TOTAL PROTEIN (test code = PROT) gram/dL 6.4-8.2 ALBUMIN (test code = ALB) g/dL 3.4-5.0 GLOBULIN (test code = GLOB) gram/dL 2.7-4.2 ALBUMIN/GLOBULIN RATIO (test code = A/G) 0.75-1.50 CALCIUM (test code = CA) mg/dL 8.5-10.1 BILIRUBIN TOTAL (test code = BILT) mg/dL 0.0-1.0 SGOT/AST (test code = AST) IUnit/L 15-37 SGPT/ALT (test code = ALT) IUnit/L 12-78 ALKALINE PHOSPHATASE TOTAL (test code = ALKP) IUnit/L 45-117 [id number] 07:38:00* Test Item Value Reference Range Interpretation Comments GLUBED (test code = GLUBED) 172 mg/dL 74-106 H Performed by certified vegetable washing machine operator at [facility] CBC W/AUTO [id number] 07:32:00* Test Item Value Reference Range Interpretation Comments WHITE BLOOD CELL (test code = WBC) 8.4 K/mm3 4.5-12.5 N RED BLOOD CELL (test code = RBC) 4.66 mill/mm3 3.7-5.2 N HEMOGLOBIN (test code = HGB) 13.4 gram/dL 11.5-15.5 N HEMATOCRIT (test code = HCT) 42.1 % 36.0-46.0 N MEAN CELL VOLUME (test code = MCV) 90.3 fL 80-98 N MEAN CELL HGB (test code = MCH) 28.8 picogram 27.0-33.0 N MEAN CELL HGB CONCETRATION (test code = MCHC) 31.8 gram/dL 33.0-36. 0 L RED CELL DISTRIBUTION WIDTH (test code = RDW) 13.1 % 11.6-16. 2 N RED CELL DISTRIBUTION WIDTH SD (test code = RDW-SD) 43.8 fL 37 .0-51.0 N PLATELET COUNT (test code = PLT) 199 K/mm3 150-450 N MEAN PLATELET VOLUME (test code = MPV) 11.2 fL 6.7-11.0 H NEUTROPHIL % (test code = NT%) 63.1 % 39.0-69.0 N IMMATURE GRANULOCYTE % (test code = IG%) 0.4 % 0.0-5.0 N LYMPHOCYTE % (test code = LY%) 28.9 % 25.0-55.0 N MONOCYTE % (test code = MO%) 5.8 % 0.0-10.0 N EOSINOPHIL % (test code = EO%) 1.3 % 0.0-5.0 N BASOPHIL % (test code = BA%) 0.5 % 0.0-1.0 N NUCLEATED RBC % (test code = NRBC%) 0.0 % 0-0 N NEUTROPHIL # (test code = NT#) 5.30 K/mm3 1.8-7.7 N IMMATURE GRANULOCYTE # (test code = IG#) 0.03 x10 3/uL 0-0.03 N LYMPHOCYTE # (test code = LY#) 2.43 K/mm3 1.0-5.0 N MONOCYTE # (test code = MO#) 0.49 K/mm3 0-0.8 N EOSINOPHIL # (test code = EO#) 0.11 K/mm3 0.0-0.5 N BASOPHIL # (test code = BA#) 0.04 K/mm3 0.0-0.2 N NUCLEATED RBC # (test code = NRBC#) 0.00 K/mm3 0.0-0.1 N MANUAL DIFF REQUIRED (test code = MDIFF) NO CBC W/AUTO [id number] 07:30:00* Test Item Value Reference Range Interpretation Comments WHITE BLOOD CELL (test code = WBC) K/mm3 4.5-12.5 RED BLOOD CELL (test code = RBC) mill/mm3 3.7-5.2 HEMOGLOBIN (test code = HGB) 13.4 gram/dL 11.5-15.5 N HEMATOCRIT (test code = HCT) 42.1 % 36.0-46.0 N MEAN CELL VOLUME (test code = MCV) fL 80-98 MEAN CELL HGB (test code = MCH) picogram 27.0-33.0 MEAN CELL HGB CONCETRATION (test code = MCHC) gram/dL 33.0-36. 0 RED CELL DISTRIBUTION WIDTH (test code = RDW) % 11.6-16. 2 RED CELL DISTRIBUTION WIDTH SD (test code = RDW-SD) fL 37 .0-51.0 PLATELET COUNT (test code = PLT) K/mm3 150-450 MEAN PLATELET VOLUME (test code = MPV) fL 6.7-11.0 NEUTROPHIL % (test code = NT%) % 39.0-69.0 IMMATURE GRANULOCYTE % (test code = IG%) % 0.0-5.0 LYMPHOCYTE % (test code = LY%) % 25.0-55.0 MONOCYTE % (test code = MO%) % 0.0-10.0 EOSINOPHIL % (test code = EO%) % 0.0-5.0 BASOPHIL % (test code = BA%) % 0.0-1.0 NEUTROPHIL # (test code = NT#) K/mm3 1.8-7.7 LYMPHOCYTE # (test code = LY#) K/mm3 1.0-5.0 MONOCYTE # (test code = MO#) K/mm3 0-0.8 EOSINOPHIL # (test code = EO#) K/mm3 0.0-0.5 BASOPHIL # (test code = BA#) K/mm3 0.0-0.2 [id number] 20:51:00* Test Item Value Reference Range Interpretation Comments GLUBED (test code = GLUBED) 155 mg/dL 74-106 H Performed by certified vegetable washing machine operator at [facility] [id number] 16:49:00* Test Item Value Reference Range Interpretation Comments GLUBED (test code = GLUBED) 286 mg/dL 74-106 H Performed by certified vegetable washing machine operator at [facility] [id number] 11:53:00* Test Item Value Reference Range Interpretation Comments GLUBED (test code = GLUBED) 135 mg/dL 74-106 H Performed by certified vegetable washing machine operator at [facility] [id number] 07:46:00* Test Item Value Reference Range Interpretation Comments GLUBED (test code = GLUBED) 212 mg/dL 74-106 H Performed by certified vegetable washing machine operator at [facility] COMPREHENSIVE METABOLIC [id number] 06:55:00* Test Item Value Reference Range Interpretation Comments SODIUM (test code = NA) 140 mmol/L 136-145 N POTASSIUM (test code = K) 3.5 mmol/L 3.5-5.1 N CHLORIDE (test code = CL) 109.0 mmol/L 98-107 H CARBON DIOXIDE (test code = CO2) 22.0 mmol/L 21-32 N ANION GAP (test code = GAP) 12.5 10-20 N GLUCOSE (test code = GLU) 196 mg/dL 74-106 H BLOOD UREA NITROGEN (test code = BUN) 14 mg/dL 7-18 N GLOMERULAR FILTRATION RATE (test code = GFR) > 60 mL/min >=60 Estimated GFR by using Modified MDRD formula.Chronic kidney disease is defined as either kidney damageor GFR <60 mL/min/1.73 m2 for >3 months. CREATININE (test code = CREAT) 0.70 mg/dL 0.55-1.02 N Note change in reference range due to change in reagent. BUN/CREATININE RATIO (test code = BUN/CREA) 20.5 10-20 H TOTAL PROTEIN (test code = PROT) 6.8 gram/dL 6.4-8.2 N ALBUMIN (test code = ALB) 2.5 g/dL 3.4-5.0 L GLOBULIN (test code = GLOB) 4.3 gram/dL 2.7-4.2 H ALBUMIN/GLOBULIN RATIO (test code = A/G) 0.6 0.75-1.50 L CALCIUM (test code = CA) 9.4 mg/dL 8.5-10.1 N BILIRUBIN TOTAL (test code = BILT) 0.70 mg/dL 0.0-1.0 N SGOT/AST (test code = AST) 68 IUnit/L 15-37 H SGPT/ALT (test code = ALT) 91 IUnit/L 12-78 H ALKALINE PHOSPHATASE TOTAL (test code = ALKP) 102 IUnit/L 45-117 N Note change in reference range due to change in reagent. COMPREHENSIVE METABOLIC [id number] 06:50:00* Test Item Value Reference Range Interpretation Comments SODIUM (test code = NA) 140 mmol/L 136-145 N POTASSIUM (test code = K) 3.5 mmol/L 3.5-5.1 N CHLORIDE (test code = CL) 109.0 mmol/L 98-107 H CARBON DIOXIDE (test code = CO2) mmol/L 21-32 ANION GAP (test code = GAP) 10-20 GLUCOSE (test code = GLU) mg/dL 74-106 BLOOD UREA NITROGEN (test code = BUN) mg/dL 7-18 GLOMERULAR FILTRATION RATE (test code = GFR) mL/min >=60 CREATININE (test code = CREAT) mg/dL 0.55-1.02 BUN/CREATININE RATIO (test code = BUN/CREA) 10-20 TOTAL PROTEIN (test code = PROT) gram/dL 6.4-8.2 ALBUMIN (test code = ALB) g/dL 3.4-5.0 GLOBULIN (test code = GLOB) gram/dL 2.7-4.2 ALBUMIN/GLOBULIN RATIO (test code = A/G) 0.75-1.50 CALCIUM (test code = CA) mg/dL 8.5-10.1 BILIRUBIN TOTAL (test code = BILT) mg/dL 0.0-1.0 SGOT/AST (test code = AST) IUnit/L 15-37 SGPT/ALT (test code = ALT) IUnit/L 12-78 ALKALINE PHOSPHATASE TOTAL (test code = ALKP) IUnit/L 45-117 [id number] 20:44:00* Test Item Value Reference Range Interpretation Comments GLUBED (test code = GLUBED) 206 mg/dL 74-106 H Performed by certified vegetable washing machine operator at [facility] HGB [id number] 17:45:00* Test Item Value Reference Range Interpretation Comments HEMOGLOBIN (test code = HGB) 14.2 gram/dL 11.5-15.5 N HEMATOCRIT (test code = HCT) 44.4 % 36.0-46.0 N [id number] 16:39:00* Test Item Value Reference Range Interpretation Comments GLUBED (test code = GLUBED) 282 mg/dL 74-106 H Performed by certified vegetable washing machine operator at [facility] [id number] 13:10:00* Test Item Value Reference Range Interpretation Comments GLUBED (test code = GLUBED) 269 mg/dL 74-106 H Performed by certified vegetable washing machine operator at [facility] [id number] 13:10:00* Test Item Value Reference Range Interpretation Comments GLUBED (test code = GLUBED) 234 mg/dL 74-106 H Performed by certified vegetable washing machine operator at [facility] COMPREHENSIVE METABOLIC [id number] 08:03:00* Test Item Value Reference Range Interpretation Comments SODIUM (test code = NA) 142 mmol/L 136-145 N POTASSIUM (test code = K) 3.7 mmol/L 3.5-5.1 N CHLORIDE (test code = CL) 111.0 mmol/L 98-107 H CARBON DIOXIDE (test code = CO2) 23.0 mmol/L 21-32 N ANION GAP (test code = GAP) 11.7 10-20 N GLUCOSE (test code = GLU) 195 mg/dL 74-106 H BLOOD UREA NITROGEN (test code = BUN) 13 mg/dL 7-18 N GLOMERULAR FILTRATION RATE (test code = GFR) > 60 mL/min >=60 Estimated GFR by using Modified MDRD formula.Chronic kidney disease is defined as either kidney damageor GFR <60 mL/min/1.73 m2 for >3 months. CREATININE (test code = CREAT) 0.80 mg/dL 0.55-1.02 N Note change in reference range due to change in reagent. BUN/CREATININE RATIO (test code = BUN/CREA) 16.6 10-20 N TOTAL PROTEIN (test code = PROT) 6.8 gram/dL 6.4-8.2 N ALBUMIN (test code = ALB) 2.6 g/dL 3.4-5.0 L GLOBULIN (test code = GLOB) 4.2 gram/dL 2.7-4.2 N ALBUMIN/GLOBULIN RATIO (test code = A/G) 0.6 0.75-1.50 L CALCIUM (test code = CA) 8.6 mg/dL 8.5-10.1 N BILIRUBIN TOTAL (test code = BILT) 0.60 mg/dL 0.0-1.0 N SGOT/AST (test code = AST) 136 IUnit/L 15-37 H SGPT/ALT (test code = ALT) 121 IUnit/L 12-78 H ALKALINE PHOSPHATASE TOTAL (test code = ALKP) 103 IUnit/L 45-117 N Note change in reference range due to change in reagent. CBC W/AUTO [id number] 07:48:00* Test Item Value Reference Range Interpretation Comments WHITE BLOOD CELL (test code = WBC) 11.8 K/mm3 4.5-12.5 N RED BLOOD CELL (test code = RBC) 4.80 mill/mm3 3.7-5.2 N HEMOGLOBIN (test code = HGB) 13.8 gram/dL 11.5-15.5 N HEMATOCRIT (test code = HCT) 43.0 % 36.0-46.0 N MEAN CELL VOLUME (test code = MCV) 89.6 fL 80-98 N MEAN CELL HGB (test code = MCH) 28.8 picogram 27.0-33.0 N MEAN CELL HGB CONCETRATION (test code = MCHC) 32.1 gram/dL 33.0-36. 0 L RED CELL DISTRIBUTION WIDTH (test code = RDW) 13.0 % 11.6-16. 2 N RED CELL DISTRIBUTION WIDTH SD (test code = RDW-SD) 42.6 fL 37 .0-51.0 N PLATELET COUNT (test code = PLT) 221 K/mm3 150-450 N MEAN PLATELET VOLUME (test code = MPV) 10.9 fL 6.7-11.0 N NEUTROPHIL % (test code = NT%) 73.2 % 39.0-69.0 H IMMATURE GRANULOCYTE % (test code = IG%) 0.6 % 0.0-5.0 N LYMPHOCYTE % (test code = LY%) 19.8 % 25.0-55.0 L MONOCYTE % (test code = MO%) 5.9 % 0.0-10.0 N EOSINOPHIL % (test code = EO%) 0.2 % 0.0-5.0 N BASOPHIL % (test code = BA%) 0.3 % 0.0-1.0 N NUCLEATED RBC % (test code = NRBC%) 0.0 % 0-0 N NEUTROPHIL # (test code = NT#) 8.67 K/mm3 1.8-7.7 H IMMATURE GRANULOCYTE # (test code = IG#) 0.07 x10 3/uL 0-0.03 H LYMPHOCYTE # (test code = LY#) 2.34 K/mm3 1.0-5.0 N MONOCYTE # (test code = MO#) 0.70 K/mm3 0-0.8 N EOSINOPHIL # (test code = EO#) 0.02 K/mm3 0.0-0.5 N BASOPHIL # (test code = BA#) 0.03 K/mm3 0.0-0.2 N NUCLEATED RBC # (test code = NRBC#) 0.00 K/mm3 0.0-0.1 N [id number] 07:41:00* Test Item Value Reference Range Interpretation Comments GLUBED (test code = GLUBED) 179 mg/dL 74-106 H Performed by certified vegetable washing machine operator at [facility] [id number] 20:18:00* Test Item Value Reference Range Interpretation Comments GLUBED (test code = GLUBED) 268 mg/dL 74-106 H Performed by certified vegetable washing machine operator at [facility] [id number] 18:31:00* Test Item Value Reference Range Interpretation Comments GLUBED (test code = GLUBED) 257 mg/dL 74-106 H Performed by certified vegetable washing machine operator at [facility] [id number] 16:44:00* Test Item Value Reference Range Interpretation Comments GLUBED (test code = GLUBED) 213 mg/dL 74-106 H Performed by certified vegetable washing machine operator at [facility] [id number] 11:45:00* Test Item Value Reference Range Interpretation Comments GLUBED (test code = GLUBED) 141 mg/dL 74-106 H Performed by certified vegetable washing machine operator at [facility] [id number] 08:07:00* Test Item Value Reference Range Interpretation Comments GLUBED (test code = GLUBED) 234 mg/dL 74-106 H Performed by certified vegetable washing machine operator at [facility] COMPREHENSIVE METABOLIC [id number] 07:07:00* Test Item Value Reference Range Interpretation Comments SODIUM (test code = NA) 140 mmol/L 136-145 N POTASSIUM (test code = K) 3.3 mmol/L 3.5-5.1 L CHLORIDE (test code = CL) 107.0 mmol/L 98-107 N CARBON DIOXIDE (test code = CO2) 25.0 mmol/L 21-32 N ANION GAP (test code = GAP) 11.3 10-20 N GLUCOSE (test code = GLU) 242 mg/dL 74-106 H BLOOD UREA NITROGEN (test code = BUN) 10 mg/dL 7-18 N GLOMERULAR FILTRATION RATE (test code = GFR) > 60 mL/min >=60 Estimated GFR by using Modified MDRD formula.Chronic kidney disease is defined as either kidney damageor GFR <60 mL/min/1.73 m2 for >3 months. CREATININE (test code = CREAT) 0.60 mg/dL 0.55-1.02 N Note change in reference range due to change in reagent. BUN/CREATININE RATIO (test code = BUN/CREA) 15.5 10-20 N TOTAL PROTEIN (test code = PROT) 6.8 gram/dL 6.4-8.2 N ALBUMIN (test code = ALB) 2.7 g/dL 3.4-5.0 L GLOBULIN (test code = GLOB) 4.1 gram/dL 2.7-4.2 N ALBUMIN/GLOBULIN RATIO (test code = A/G) 0.7 0.75-1.50 L CALCIUM (test code = CA) 8.7 mg/dL 8.5-10.1 N BILIRUBIN TOTAL (test code = BILT) 0.60 mg/dL 0.0-1.0 N SGOT/AST (test code = AST) 49 IUnit/L 15-37 H SGPT/ALT (test code = ALT) 70 IUnit/L 12-78 N ALKALINE PHOSPHATASE TOTAL (test code = ALKP) 113 IUnit/L 45-117 N Note change in reference range due to change in reagent. COMPREHENSIVE METABOLIC [id number] 06:56:00* Test Item Value Reference Range Interpretation Comments SODIUM (test code = NA) 140 mmol/L 136-145 N POTASSIUM (test code = K) 3.3 mmol/L 3.5-5.1 L CHLORIDE (test code = CL) 107.0 mmol/L 98-107 N CARBON DIOXIDE (test code = CO2) mmol/L 21-32 ANION GAP (test code = GAP) 10-20 GLUCOSE (test code = GLU) mg/dL 74-106 BLOOD UREA NITROGEN (test code = BUN) mg/dL 7-18 GLOMERULAR FILTRATION RATE (test code = GFR) mL/min >=60 CREATININE (test code = CREAT) mg/dL 0.55-1.02 BUN/CREATININE RATIO (test code = BUN/CREA) 10-20 TOTAL PROTEIN (test code = PROT) gram/dL 6.4-8.2 ALBUMIN (test code = ALB) g/dL 3.4-5.0 GLOBULIN (test code = GLOB) gram/dL 2.7-4.2 ALBUMIN/GLOBULIN RATIO (test code = A/G) 0.75-1.50 CALCIUM (test code = CA) mg/dL 8.5-10.1 BILIRUBIN TOTAL (test code = BILT) mg/dL 0.0-1.0 SGOT/AST (test code = AST) IUnit/L 15-37 SGPT/ALT (test code = ALT) IUnit/L 12-78 ALKALINE PHOSPHATASE TOTAL (test code = ALKP) IUnit/L 45-117 CBC W/AUTO [id number] 06:49:00* Test Item Value Reference Range Interpretation Comments WHITE BLOOD CELL (test code = WBC) 10.3 K/mm3 4.5-12.5 N RED BLOOD CELL (test code = RBC) 5.04 mill/mm3 3.7-5.2 N HEMOGLOBIN (test code = HGB) 14.7 gram/dL 11.5-15.5 N HEMATOCRIT (test code = HCT) 44.0 % 36.0-46.0 N MEAN CELL VOLUME (test code = MCV) 87.3 fL 80-98 N MEAN CELL HGB (test code = MCH) 29.2 picogram 27.0-33.0 N MEAN CELL HGB CONCETRATION (test code = MCHC) 33.4 gram/dL 33.0-36. 0 N RED CELL DISTRIBUTION WIDTH (test code = RDW) 12.9 % 11.6-16. 2 N RED CELL DISTRIBUTION WIDTH SD (test code = RDW-SD) 40.9 fL 37 .0-51.0 N PLATELET COUNT (test code = PLT) 211 K/mm3 150-450 N MEAN PLATELET VOLUME (test code = MPV) 11.5 fL 6.7-11.0 H NEUTROPHIL % (test code = NT%) 73.1 % 39.0-69.0 H IMMATURE GRANULOCYTE % (test code = IG%) 0.4 % 0.0-5.0 N LYMPHOCYTE % (test code = LY%) 21.5 % 25.0-55.0 L MONOCYTE % (test code = MO%) 4.3 % 0.0-10.0 N EOSINOPHIL % (test code = EO%) 0.5 % 0.0-5.0 N BASOPHIL % (test code = BA%) 0.2 % 0.0-1.0 N NUCLEATED RBC % (test code = NRBC%) 0.0 % 0-0 N NEUTROPHIL # (test code = NT#) 7.52 K/mm3 1.8-7.7 N IMMATURE GRANULOCYTE # (test code = IG#) 0.04 x10 3/uL 0-0.03 H LYMPHOCYTE # (test code = LY#) 2.21 K/mm3 1.0-5.0 N MONOCYTE # (test code = MO#) 0.44 K/mm3 0-0.8 N EOSINOPHIL # (test code = EO#) 0.05 K/mm3 0.0-0.5 N BASOPHIL # (test code = BA#) 0.02 K/mm3 0.0-0.2 N NUCLEATED RBC # (test code = NRBC#) 0.00 K/mm3 0.0-0.1 N MANUAL DIFF REQUIRED (test code = MDIFF) NO ACUTE HEPATITIS [id number] 06:09:00* Test Item Value Reference Range Interpretation Comments AB HEPATITIS A IGM (test code = HAVMAB) Negative Negative AG HEPAT B SURF (test code = HBSAG) Negative Negative HEPATITIS B CORE ANTIBODY,IGM (test code = HBCMAB) Negative Neg ative AB HEPATITIS C (test code = HCVAB) <0.1 0.0-0.9 INFCE Result Units: s/co ratio Negative: < 0.8 Indeterminate: 0.8 - 0.9 Positive: > 0.9 The CDC recommends that a positive HCV antibody result be followed up with a HCV Nucleic Acid Amplification test (578702).Performed At: [facility] [id number] Cain Hussein MD Ph:[phone] [id number] 20:45:00* Test Item Value Reference Range Interpretation Comments GLUBED (test code = GLUBED) 215 mg/dL 74-106 H Performed by certified vegetable washing machine operator at [facility] [id number] 11:58:00* Test Item Value Reference Range Interpretation Comments GLUBED (test code = GLUBED) 266 mg/dL 74-106 H Performed by certified vegetable washing machine operator at [facility] [id number] 07:29:00* Test Item Value Reference Range Interpretation Comments GLUBED (test code = GLUBED) 303 mg/dL 74-106 H Performed by certified vegetable washing machine operator at [facility] COMPREHENSIVE METABOLIC [id number] 07:01:00* Test Item Value Reference Range Interpretation Comments SODIUM (test code = NA) 140 mmol/L 136-145 N POTASSIUM (test code = K) 3.5 mmol/L 3.5-5.1 N CHLORIDE (test code = CL) 105.0 mmol/L 98-107 N CARBON DIOXIDE (test code = CO2) 26.0 mmol/L 21-32 N ANION GAP (test code = GAP) 12.5 10-20 N GLUCOSE (test code = GLU) 298 mg/dL 74-106 H BLOOD UREA NITROGEN (test code = BUN) 9 mg/dL 7-18 N GLOMERULAR FILTRATION RATE (test code = GFR) > 60 mL/min >=60 Estimated GFR by using Modified MDRD formula.Chronic kidney disease is defined as either kidney damageor GFR <60 mL/min/1.73 m2 for >3 months. CREATININE (test code = CREAT) 0.80 mg/dL 0.55-1.02 N Note change in reference range due to change in reagent. BUN/CREATININE RATIO (test code = BUN/CREA) 11.7 10-20 N TOTAL PROTEIN (test code = PROT) 6.4 gram/dL 6.4-8.2 N ALBUMIN (test code = ALB) 2.6 g/dL 3.4-5.0 L GLOBULIN (test code = GLOB) 3.8 gram/dL 2.7-4.2 N ALBUMIN/GLOBULIN RATIO (test code = A/G) 0.7 0.75-1.50 L CALCIUM (test code = CA) 8.9 mg/dL 8.5-10.1 N BILIRUBIN TOTAL (test code = BILT) 0.50 mg/dL 0.0-1.0 N SGOT/AST (test code = AST) 59 IUnit/L 15-37 H SGPT/ALT (test code = ALT) 85 IUnit/L 12-78 H ALKALINE PHOSPHATASE TOTAL (test code = ALKP) 117 IUnit/L 45-117 N Note change in reference range due to change in reagent. COMPREHENSIVE METABOLIC [id number] 06:46:00* Test Item Value Reference Range Interpretation Comments SODIUM (test code = NA) 140 mmol/L 136-145 N POTASSIUM (test code = K) 3.5 mmol/L 3.5-5.1 N CHLORIDE (test code = CL) 105.0 mmol/L 98-107 N CARBON DIOXIDE (test code = CO2) mmol/L 21-32 ANION GAP (test code = GAP) 10-20 GLUCOSE (test code = GLU) mg/dL 74-106 BLOOD UREA NITROGEN (test code = BUN) mg/dL 7-18 GLOMERULAR FILTRATION RATE (test code = GFR) mL/min >=60 CREATININE (test code = CREAT) mg/dL 0.55-1.02 BUN/CREATININE RATIO (test code = BUN/CREA) 10-20 TOTAL PROTEIN (test code = PROT) gram/dL 6.4-8.2 ALBUMIN (test code = ALB) g/dL 3.4-5.0 GLOBULIN (test code = GLOB) gram/dL 2.7-4.2 ALBUMIN/GLOBULIN RATIO (test code = A/G) 0.75-1.50 CALCIUM (test code = CA) mg/dL 8.5-10.1 BILIRUBIN TOTAL (test code = BILT) mg/dL 0.0-1.0 SGOT/AST (test code = AST) IUnit/L 15-37 SGPT/ALT (test code = ALT) IUnit/L 12-78 ALKALINE PHOSPHATASE TOTAL (test code = ALKP) IUnit/L 45-117 PROTHROMBIN [id number] 06:26:00* Test Item Value Reference Range Interpretation Comments PROTHROMBIN TIME PATIENT (test code = PTP) 10.0 seconds 9.0-14.0 N INTERNATIONAL NORMAL RATIO (test code = INR) 0.8 0.8-1.2 N The therapeutic range for oral anticoagulant therapy formost indications is an international normalized ratio (INR)of between 2.0 and 3.0. The recommended therapeutic INRrange for various clinical situations is listed below: Clinical Situation INR range Pulmonary e mbolism treatment (2.0-3.0)Venous thrombosis treatmentVenous thrombosis prophylaxis (high risk surgery)Prevention of systemic embolism from: Acute myocardial infarction Valvular heart disease Atrial fibrillation Mechanical prosthetic heart valves (2.5-3.5) IS PATIENT ON ANTICOAGULANTS? NCBC W/AUTO [id number] 06:20:00* Test Item Value Reference Range Interpretation Comments WHITE BLOOD CELL (test code = WBC) 7.7 K/mm3 4.5-12.5 N RED BLOOD CELL (test code = RBC) 5.15 mill/mm3 3.7-5.2 N HEMOGLOBIN (test code = HGB) 14.7 gram/dL 11.5-15.5 N HEMATOCRIT (test code = HCT) 44.3 % 36.0-46.0 N MEAN CELL VOLUME (test code = MCV) 86.0 fL 80-98 N MEAN CELL HGB (test code = MCH) 28.5 picogram 27.0-33.0 N MEAN CELL HGB CONCETRATION (test code = MCHC) 33.2 gram/dL 33.0-36. 0 N RED CELL DISTRIBUTION WIDTH (test code = RDW) 12.7 % 11.6-16. 2 N RED CELL DISTRIBUTION WIDTH SD (test code = RDW-SD) 39.3 fL 37 .0-51.0 N PLATELET COUNT (test code = PLT) 191 K/mm3 150-450 N MEAN PLATELET VOLUME (test code = MPV) 11.2 fL 6.7-11.0 H NEUTROPHIL % (test code = NT%) 51.9 % 39.0-69.0 N IMMATURE GRANULOCYTE % (test code = IG%) 0.6 % 0.0-5.0 N LYMPHOCYTE % (test code = LY%) 39.3 % 25.0-55.0 N MONOCYTE % (test code = MO%) 6.2 % 0.0-10.0 N EOSINOPHIL % (test code = EO%) 1.7 % 0.0-5.0 N BASOPHIL % (test code = BA%) 0.3 % 0.0-1.0 N NUCLEATED RBC % (test code = NRBC%) 0.0 % 0-0 N NEUTROPHIL # (test code = NT#) 4.00 K/mm3 1.8-7.7 N IMMATURE GRANULOCYTE # (test code = IG#) 0.05 x10 3/uL 0-0.03 H LYMPHOCYTE # (test code = LY#) 3.03 K/mm3 1.0-5.0 N MONOCYTE # (test code = MO#) 0.48 K/mm3 0-0.8 N EOSINOPHIL # (test code = EO#) 0.13 K/mm3 0.0-0.5 N BASOPHIL # (test code = BA#) 0.02 K/mm3 0.0-0.2 N NUCLEATED RBC # (test code = NRBC#) 0.00 K/mm3 0.0-0.1 N CBC W/AUTO [id number] 06:14:00* Test Item Value Reference Range Interpretation Comments WHITE BLOOD CELL (test code = WBC) K/mm3 4.5-12.5 RED BLOOD CELL (test code = RBC) mill/mm3 3.7-5.2 HEMOGLOBIN (test code = HGB) 14.7 gram/dL 11.5-15.5 N HEMATOCRIT (test code = HCT) 44.3 % 36.0-46.0 N MEAN CELL VOLUME (test code = MCV) fL 80-98 MEAN CELL HGB (test code = MCH) picogram 27.0-33.0 MEAN CELL HGB CONCETRATION (test code = MCHC) gram/dL 33.0-36. 0 RED CELL DISTRIBUTION WIDTH (test code = RDW) % 11.6-16. 2 RED CELL DISTRIBUTION WIDTH SD (test code = RDW-SD) fL 37 .0-51.0 PLATELET COUNT (test code = PLT) K/mm3 150-450 MEAN PLATELET VOLUME (test code = MPV) fL 6.7-11.0 NEUTROPHIL % (test code = NT%) % 39.0-69.0 IMMATURE GRANULOCYTE % (test code = IG%) % 0.0-5.0 LYMPHOCYTE % (test code = LY%) % 25.0-55.0 MONOCYTE % (test code = MO%) % 0.0-10.0 EOSINOPHIL % (test code = EO%) % 0.0-5.0 BASOPHIL % (test code = BA%) % 0.0-1.0 NEUTROPHIL # (test code = NT#) K/mm3 1.8-7.7 LYMPHOCYTE # (test code = LY#) K/mm3 1.0-5.0 MONOCYTE # (test code = MO#) K/mm3 0-0.8 EOSINOPHIL # (test code = EO#) K/mm3 0.0-0.5 BASOPHIL # (test code = BA#) K/mm3 0.0-0.2 [id number] 21:04:00* Test Item Value Reference Range Interpretation Comments GLUBED (test code = GLUBED) 244 mg/dL 74-106 H Performed by certified vegetable washing machine operator at [facility] - US ABDOMEN [id number] 20:08:00 Name: STAR CLIFFORD [facility] : 1965 Age/S: 54 / F [address] [facility] #: [id number] Loc: [place] [address] Phys: Eryn Sawant MD Acct: [id number] Dis Date: Status: ADM IN PHONE #: [phone] Exam Date: 04/24/20191955 FAX #: [phone] Reason: elevated LFTs EXAMS: CPT CODE: [id number] US ABDOMEN COMPLETE [id number] HISTORY: Elevated liver function tests. COMPARISON: CT chest from December 04, 2018. The liver is diffusely hyperechogenic consistent with severe diffuse fibrofatty infiltration which limited evaluation for intrahepatic mass however no discrete lesions. The liver measured 18.1 cm in length. No intra or extrahepatic biliary ductal dilatation. CBD is normal at 2.4 mm. Main portal vein is patent with hepatopedal flow and normal spectral waveform. Well- distended gallbladder with large mobile gallstone within the gallbladder measuring 3.7 cm. No pericholecystic fluid or wall thickening. No ascites. Both kidneys are free from hydronephrosis and normal echogenicity and texture. Right kidney measured 11.4 cm in length. Left kidney measured 11.3 cm in length with 1.5 cm left lower pole calyceal stone. Calyceal stone is not visible on the right side which is visible on the CT scan. Spleen is measuring 12.2 cm in length and is not enlarged. Visualized portions of the IVC, aorta and pancreas are normal however imaged incompletely. IMPRESSION: Large mobile gallstone without pericholecystic fluid or wall thickening. No ascites. Fibrofatty infiltrated liver. Nonobstructing 1.5 cm left lower pole calyceal stone. No hydronephrosis on either side. Unremarkable spleen. at 2007 Reported and signed by: Georgia Alvarado M.D. CC: Eryn Sawant MD Technologist: Juliocesar Sweeney Trnscb Da te/Time: 04/24/2019 (2007) [email or web address] Orig Print D/T: S: 0 04/24/2019 (2010) Probe: PAGE 1 Signed Report [id number] 16:44:00* Test Item Value Reference Range Interpretation Comments GLUBED (test code = GLUBED) 211 mg/dL 74-106 H Performed by certified vegetable washing machine operator at [facility] [id number] 12:49:00* Test Item Value Reference Range Interpretation Comments GLUBED (test code = GLUBED) 189 mg/dL 74-106 H Performed by certified vegetable washing machine operator at [facility] COMPREHENSIVE METABOLIC [id number] 09:42:00* Test Item Value Reference Range Interpretation Comments SODIUM (test code = NA) 140 mmol/L 136-145 RESU LT VERIFIED BY REPEAT ANALYSIS POTASSIUM (test code = K) 3.1 mmol/L 3.5-5.1 L CHLORIDE (test code = CL) 106.0 mmol/L 98-107 N CARBON DIOXIDE (test code = CO2) 28.0 mmol/L 21-32 N ANION GAP (test code = GAP) 9.1 10-20 L GLUCOSE (test code = GLU) 271 mg/dL 74-106 H BLOOD UREA NITROGEN (test code = BUN) 6 mg/dL 7-18 L GLOMERULAR FILTRATION RATE (test code = GFR) > 60 mL/min >=60 Estimated GFR by using Modified MDRD formula.Chronic kidney disease is defined as either kidney damageor GFR <60 mL/min/1.73 m2 for >3 months. CREATININE (test code = CREAT) 0.70 mg/dL 0.55-1.02 N Note change in reference range due to change in reagent. BUN/CREATININE RATIO (test code = BUN/CREA) 8.6 10-20 L TOTAL PROTEIN (test code = PROT) 6.6 gram/dL 6.4-8.2 N ALBUMIN (test code = ALB) 2.6 g/dL 3.4-5.0 L GLOBULIN (test code = GLOB) 4.0 gram/dL 2.7-4.2 N ALBUMIN/GLOBULIN RATIO (test code = A/G) 0.7 0.75-1.50 L CALCIUM (test code = CA) 8.0 mg/dL 8.5-10.1 L BILIRUBIN TOTAL (test code = BILT) 0.60 mg/dL 0.0-1.0 N SGOT/AST (test code = AST) 67 IUnit/L 15-37 H SGPT/ALT (test code = ALT) 91 IUnit/L 12-78 H ALKALINE PHOSPHATASE TOTAL (test code = ALKP) 113 IUnit/L 45-117 N Note change in reference range due to change in reagent. LIPID PROFILE (CORONARY RISK)2019-04-24 09:42:00* Test Item Value Reference Range Interpretation Comments TRIGLYCERIDES (test code = TRIG) 176 mg/dL 20-150 H CHOLESTEROL (test code = CHOL) 146 mg/dL 0-200 N CHOLESTEROL/HDL RATIO (test code = CHOLHDL) 2.0 RATIO 0-4.9 N RISK ASSOCIATED WITH CHOL/HDL RATIOS: Risk Male Female1/2 AVERAGE 3.43 3.27AVERAGE 4.97 4.442X AVERAGE 9.55 7.053X AVERAGE 23.39 11.04 REFERENCE VALUE IS RELATED TO RISK LEVELS ASRECOMMENDED BY THE [facility]. HEART, LUNG, AND BLOOD INST. HDL CHOLESTEROL (test code = HDL) 50 mg/dL 40-60 N LIPOPROTEIN LDL (test code = LDL) 68 mg/dL 100-129 L Reference Interval: mg/dL mmol/L Optimal <100 <2.6Near/above optimal 100-129 2.6- 3.3Borderline High 130-159 3.4-4.1High 160-189 4.1-4.9Very High >=190 >=4.9========= This LDL result is a direct measurement.========= THYROID STIMULATING [id number] 09:42:00* Test Item Value Reference Range Interpretation Comments THYROID STIMULATING HORMONE (test code = TSH) 1.160 uIU/mL 0.36-3.7 4 N TSH REFERENCE RANGES: EUTHYROID: 0.35 - 4.3 mIU/mL HYPO : > 5.5 mIU/mL HYPER : < 0.35 mIU/mL COMPREHENSIVE METABOLIC [id number] 09:27:00* Test Item Value Reference Range Interpretation Comments SODIUM (test code = NA) 140 mmol/L 136-145 RESU LT VERIFIED BY REPEAT ANALYSIS POTASSIUM (test code = K) 3.1 mmol/L 3.5-5.1 L CHLORIDE (test code = CL) 106.0 mmol/L 98-107 N CARBON DIOXIDE (test code = CO2) mmol/L 21-32 ANION GAP (test code = GAP) 10-20 GLUCOSE (test code = GLU) mg/dL 74-106 BLOOD UREA NITROGEN (test code = BUN) mg/dL 7-18 GLOMERULAR FILTRATION RATE (test code = GFR) mL/min >=60 CREATININE (test code = CREAT) mg/dL 0.55-1.02 BUN/CREATININE RATIO (test code = BUN/CREA) 10-20 TOTAL PROTEIN (test code = PROT) gram/dL 6.4-8.2 ALBUMIN (test code = ALB) g/dL 3.4-5.0 GLOBULIN (test code = GLOB) gram/dL 2.7-4.2 ALBUMIN/GLOBULIN RATIO (test code = A/G) 0.75-1.50 CALCIUM (test code = CA) mg/dL 8.5-10.1 BILIRUBIN TOTAL (test code = BILT) mg/dL 0.0-1.0 SGOT/AST (test code = AST) IUnit/L 15-37 SGPT/ALT (test code = ALT) IUnit/L 12-78 ALKALINE PHOSPHATASE TOTAL (test code = ALKP) IUnit/L 45-117 LIPID PROFILE (CORONARY RISK)2019-04-24 09:27:00* Test Item Value Reference Range Interpretation Comments TRIGLYCERIDES (test code = TRIG) mg/dL 20-150 CHOLESTEROL (test code = CHOL) mg/dL 0-200 CHOLESTEROL/HDL RATIO (test code = CHOLHDL) RATIO 0-4.9 HDL CHOLESTEROL (test code = HDL) mg/dL 40-60 LIPOPROTEIN LDL (test code = LDL) mg/dL 100-129 THYROID STIMULATING [id number] 09:27:00* Test Item Value Reference Range Interpretation Comments THYROID STIMULATING HORMONE (test code = TSH) uIU/mL 0.36-3.7 4 [id number] 08:57:00* Test Item Value Reference Range Interpretation Comments GLYCOSYLATED HEMOGLOBIN (HA1C) (test code = GLYHGB) 11.9 % HbA1 4. 8-6.0 H ESTIMATED AVERAGE GLUCOSE (test code = EAG) 295 MG/DL CBC W/AUTO [id number] 08:47:00* Test Item Value Reference Range Interpretation Comments WHITE BLOOD CELL (test code = WBC) 8.6 K/mm3 4.5-12.5 N RED BLOOD CELL (test code = RBC) 4.75 mill/mm3 3.7-5.2 N HEMOGLOBIN (test code = HGB) 13.7 gram/dL 11.5-15.5 N HEMATOCRIT (test code = HCT) 41.0 % 36.0-46.0 N MEAN CELL VOLUME (test code = MCV) 86.3 fL 80-98 N MEAN CELL HGB (test code = MCH) 28.8 picogram 27.0-33.0 N MEAN CELL HGB CONCETRATION (test code = MCHC) 33.4 gram/dL 33.0-36. 0 N RED CELL DISTRIBUTION WIDTH (test code = RDW) 12.5 % 11.6-16. 2 N RED CELL DISTRIBUTION WIDTH SD (test code = RDW-SD) 39.4 fL 37 .0-51.0 N PLATELET COUNT (test code = PLT) 177 K/mm3 150-450 N MEAN PLATELET VOLUME (test code = MPV) 10.9 fL 6.7-11.0 N NEUTROPHIL % (test code = NT%) 60.5 % 39.0-69.0 N IMMATURE GRANULOCYTE % (test code = IG%) 0.5 % 0.0-5.0 N LYMPHOCYTE % (test code = LY%) 30.7 % 25.0-55.0 N MONOCYTE % (test code = MO%) 6.6 % 0.0-10.0 N EOSINOPHIL % (test code = EO%) 1.5 % 0.0-5.0 N BASOPHIL % (test code = BA%) 0.2 % 0.0-1.0 N NUCLEATED RBC % (test code = NRBC%) 0.0 % 0-0 N NEUTROPHIL # (test code = NT#) 5.19 K/mm3 1.8-7.7 N IMMATURE GRANULOCYTE # (test code = IG#) 0.04 x10 3/uL 0-0.03 H LYMPHOCYTE # (test code = LY#) 2.63 K/mm3 1.0-5.0 N MONOCYTE # (test code = MO#) 0.57 K/mm3 0-0.8 N EOSINOPHIL # (test code = EO#) 0.13 K/mm3 0.0-0.5 N BASOPHIL # (test code = BA#) 0.02 K/mm3 0.0-0.2 N NUCLEATED RBC # (test code = NRBC#) 0.00 K/mm3 0.0-0.1 N MANUAL DIFF REQUIRED (test code = MDIFF) NO CBC W/AUTO [id number] 08:43:00* Test Item Value Reference Range Interpretation Comments WHITE BLOOD CELL (test code = WBC) K/mm3 4.5-12.5 RED BLOOD CELL (test code = RBC) mill/mm3 3.7-5.2 HEMOGLOBIN (test code = HGB) 13.7 gram/dL 11.5-15.5 N HEMATOCRIT (test code = HCT) 41.0 % 36.0-46.0 N MEAN CELL VOLUME (test code = MCV) fL 80-98 MEAN CELL HGB (test code = MCH) picogram 27.0-33.0 MEAN CELL HGB CONCETRATION (test code = MCHC) gram/dL 33.0-36. 0 RED CELL DISTRIBUTION WIDTH (test code = RDW) % 11.6-16. 2 RED CELL DISTRIBUTION WIDTH SD (test code = RDW-SD) fL 37 .0-51.0 PLATELET COUNT (test code = PLT) K/mm3 150-450 MEAN PLATELET VOLUME (test code = MPV) fL 6.7-11.0 NEUTROPHIL % (test code = NT%) % 39.0-69.0 IMMATURE GRANULOCYTE % (test code = IG%) % 0.0-5.0 LYMPHOCYTE % (test code = LY%) % 25.0-55.0 MONOCYTE % (test code = MO%) % 0.0-10.0 EOSINOPHIL % (test code = EO%) % 0.0-5.0 BASOPHIL % (test code = BA%) % 0.0-1.0 NEUTROPHIL # (test code = NT#) K/mm3 1.8-7.7 LYMPHOCYTE # (test code = LY#) K/mm3 1.0-5.0 MONOCYTE # (test code = MO#) K/mm3 0-0.8 EOSINOPHIL # (test code = EO#) K/mm3 0.0-0.5 BASOPHIL # (test code = BA#) K/mm3 0.0-0.2 [id number] 07:02:00* Test Item Value Reference Range Interpretation Comments GLUBED (test code = GLUBED) 253 mg/dL 74-106 H Performed by certified vegetable washing machine operator at [facility] [id number] 00:45:00* Test Item Value Reference Range Interpretation Comments TROPONIN-I (test code = TROPI) <0.015 ng/mL 0-0.045 N COMMENTS TO PREPARATION SUPERVISOR CANNING: COLLECT 3 HOURS AFTER PREVIOUS [id number] 21:27:00* Test Item Value Reference Range Interpretation Comments GLUBED (test code = GLUBED) 155 mg/dL 74-106 H Performed by certified vegetable washing machine operator at [facility] [id number] 20:25:00* Test Item Value Reference Range Interpretation Comments TROPONIN-I (test code = TROPI) <0.015 ng/mL 0-0.045 N COMMENTS TO PREPARATION SUPERVISOR CANNING: COLLECT 3 HOURS AFTER PREVIOUS SAMPLE- CT NECK W/O [id number] 20:18:00 Name: STAR CLIFFORD [facility] : 1965 Age/S: 54 / F [address] [facility] Unit #: [id number] Loc: [place] [address] Phys: Eryn Sawant MD Acct: [id number] Dis Date: Status: ADM IN PHONE #: [phone] Exam Date: 04/23/20191948 FAX #: [phone] Reason: Pain neck ,edema EXAMS: CPT CODE: [id number] CT NECK W/O CONTRAST 18565 HISTORY: Neck pain and edema. COMPARISON: CT neck from December 04, 2018. CT neck with contrast: Exposure control. Visualized brain parenchyma is within normal limits. Visualized paranasal sinuses are clear. Mastoid air cells demonstrating partial opacification on the left side with sclerosis suggesting chronic mastoiditis. Symmetrical fossa of Rosenmueller and p arapharyngeal spaces. The tonsils are not enlarged. No fluid collection. Hard and soft palate are extensively obscured but artifact from patient's dental. Base of the are unremarkable. Symmetrical parotid and submandibular glands. No sialoliths are visible. Shotty adenopathy from level 1 through 5. Epiglottis and aryepiglottic folds. Vallecula and piriform sinuses are unremarkable. True and false cords are jese l. Trachea is unremarkable. Thyroid glands demonstrate mild heterogeneit y especially on the left side. Superior mediastinum is unremarkable. Herminia g apices are clear. No lytic or blastic lesions are noted within the bony skeleton. Marker noted along the submental location without discrete mas s. No inflammatory change. Mild skin thickening is nonspecific and could represent cellulitis. No drainable fluid collection. IMP RESSION: Widely patent airway. No pathologic adenopathy from level 1 through 6. Nonspecific skin thickening within submental locatio n at the site of marker could suggest cellulitis but no drainable fluid or inflammatory change. No pathologic adenopathy. Widely patent airway . at 2018 Reported and signed by: Dominick Alvarado M.D. CC: Eryn Sawant MD Technologist:Mary Kay Boyle RT(R) CTDI: DLP: Trnscb Date/Time: 04/23/2019 (2018) [email or web address] Orig Print D/T: S: 04/24/2019 (0010) PAGE 1 Signed Report [id number] 18:58:00* Test Item Value Reference Range Interpretation Comments GLUBED (test code = GLUBED) 299 mg/dL 74-106 H Performed by certified vegetable washing machine operator at [facility] [id number] 18:58:00* Test Item Value Reference Range Interpretation Comments GLUBED (test code = GLUBED) > 500 mg/dL 74-106 HH Performed by certified vegetable washing machine operator at [facility] ARTERIAL BLOOD [id number] 15:42:00* Test Item Value Reference Range Interpretation Comments ARTERIAL BLOOD GAS PH (test code = PHA) 7.44 7.35-7.45 N ARTERIAL BLOOD GAS PCO2 (test code = PCO2A) 35.2 mm Hg 35-45 N ARTERIAL BLOOD GAS PO2 (test code = PO2A) 76.2 mmHg 80-100 L BICARBONATE TOTAL HCO3 (test code = HCO3) 23.4 mmol/L 23.0-27.0 N BASE EXCESS (test code = TATIANA) -0.2 mmol/L -3.0-5.0 N ABG O2 SATURATION (test code = SATA) 96.1 % 90.0-98.0 N ABG TYPE (test code = TYPEA) Arterial FIO2 (test code = FIO2A) 21.0 ABG SITE (test code = SITEA) Lt RADIAL ARTERY MODIFIED ALLENS (test code = MODALL) Yes CHECK PERFORMED HEMATOCRIT (test code = HCT/ABG) 46 % 35-47 N TOTAL HGB (test code = THB) 15.8 gram/dL 11.5-15.5 H HGB O2 SAT (test code = HBOSAT) 94.8 % 94.00-98.00 N CARBOXYHEMOGLOBIN (test code = HOHGBT) 1.1 %totalHg 0.5-1.5 N METHEMOGLOBIN (test code = METHGB) 0.3 % 0.0-1.50 N O2 CONTENT (test code = O2CT) 21.1 % vol 18.0-22.0 N HEPATIC FUNCTION [id number] 15:35:00* Test Item Value Reference Range Interpretation Comments TOTAL PROTEIN (test code = PROT) 7.2 gram/dL 6.4-8.2 N ALBUMIN (test code = ALB) 3.1 g/dL 3.4-5.0 L GLOBULIN (test code = GLOB) 4.1 gram/dL 2.7-4.2 N ALBUMIN/GLOBULIN RATIO (test code = A/G) 0.8 0.75-1.50 N BILIRUBIN TOTAL (test code = BILT) 0.50 mg/dL 0.0-1.0 N BILIRUBIN DIRECT (test code = BILD) 0.18 mg/dL 0.0-0.20 N SGOT/AST (test code = AST) 69 IUnit/L 15-37 H SGPT/ALT (test code = ALT) 114 IUnit/L 12-78 H ALKALINE PHOSPHATASE TOTAL (test code = ALKP) 144 IUnit/L 45-117 H Note change in reference range due to change in reagent. [id number] 15:35:00* Test Item Value Reference Range Interpretation Comments LIPASE (test code = LIP) 104 U/L 73.0-393.0 N URINALYSIS [id number] 15:24:00* Test Item Value Reference Range Interpretation Comments UA COLOR (test code = COLU) COLORLESS YELLOW A UA APPEARANCE (test code = APPU) CLEAR CLEAR UA GLUCOSE DIPSTICK (test code = DGLUU) >1000 (4+) mg/dL NEGATIVE UA BILIRUBIN DIPSTICK (test code = BILU) NEGATIVE mg/dL NEGATIVE UA KETONE DIPSTICK (test code = KETU) NEGATIVE mg/dL NEGATIVE UA SPECIFIC GRAVITY (test code = SGU) 1.030 1.001-1.035 UA BLOOD DIPSTICK (test code = LILLY) Negative mg/dL NEGATIVE UA PH DIPSTICK (test code = YARA) 6.0 5.0-8.0 UA PROTEIN DIPSTICK (test code = PROU) NEGATIVE mg/dL NEGATIVE UA UROBILINIOGEN DIPSTICK (test code = URO) Normal mg/dL NEGATIVE UA NITRITE DIPSTICK (test code = BETTINA) NEGATIVE NEGATIVE UA LEUKOCYTE ESTERASE W REFLEX (test code = LEUUR) NEGATIVE Pennie/uL NEGATIVE UA WBC (test code = WBCU) 11-20 per HPF 0-5 A UA RBC (test code = RBCU) 0-2 #/HPF 0-5 UA EPITHELIAL CELLS (test code = EPIU) FEW per HPF FEW UA BACTERIA (test code = BACU) NONE SEEN #/HPF NONE Urine Source? Clean CatchBASIC METABOLIC [id number] 15:20:00* Test Item Value Reference Range Interpretation Comments SODIUM (test code = NA) 129 mmol/L 136-145 L POTASSIUM (test code = K) 3.5 mmol/L 3.5-5.1 N CHLORIDE (test code = CL) 95.0 mmol/L 98-107 L CARBON DIOXIDE (test code = CO2) 22.0 mmol/L 21-32 N ANION GAP (test code = GAP) 15.5 10-20 N GLUCOSE (test code = GLU) 766 mg/dL 74-106 Lor hernandez called to DR WHYTE by V.LAB.LT 04/23/19 1520Critical results verified and read back by Nurse? Y BLOOD UREA NITROGEN (test code = BUN) 7 mg/dL 7-18 N GLOMERULAR FILTRATION RATE (test code = GFR) 39 mL/min >=60 Estimated GFR by using Modified MDRD formula.Chronic kidney disease is defined as either kidney damageor GFR <60 mL/min/1.73 m2 for >3 months. CREATININE (test code = CREAT) 1.40 mg/dL 0.55-1.02 H Note change in reference range due to change in reagent. BUN/CREATININE RATIO (test code = BUN/CREA) 5.0 10-20 L CALCIUM (test code = CA) 8.7 mg/dL 8.5-10.1 N [id number] 15:20:00* Test Item Value Reference Range Interpretation Comments TROPONIN-I (test code = TROPI) <0.015 ng/mL 0-0.045 N BASIC METABOLIC [id number] 14:37:00* Test Item Value Reference Range Interpretation Comments SODIUM (test code = NA) 129 mmol/L 136-145 L POTASSIUM (test code = K) 3.5 mmol/L 3.5-5.1 N CHLORIDE (test code = CL) 95.0 mmol/L 98-107 L CARBON DIOXIDE (test code = CO2) mmol/L 21-32 ANION GAP (test code = GAP) 10-20 GLUCOSE (test code = GLU) mg/dL 74-106 BLOOD UREA NITROGEN (test code = BUN) mg/dL 7-18 GLOMERULAR FILTRATION RATE (test code = GFR) mL/min >=60 CREATININE (test code = CREAT) mg/dL 0.55-1.02 BUN/CREATININE RATIO (test code = BUN/CREA) 10-20 CALCIUM (test code = CA) mg/dL 8.5-10.1 [id number] 14:37:00* Test Item Value Reference Range Interpretation Comments TROPONIN-I (test code = TROPI) ng/mL 0-0.045 CBC W/O [id number] 14:25:00* Test Item Value Reference Range Interpretation Comments WHITE BLOOD CELL (test code = WBC) 8.4 K/mm3 4.5-12.5 N RED BLOOD CELL (test code = RBC) 4.87 mill/mm3 3.7-5.2 N HEMOGLOBIN (test code = HGB) 14.0 gram/dL 11.5-15.5 N HEMATOCRIT (test code = HCT) 42.4 % 36.0-46.0 N MEAN CELL VOLUME (test code = MCV) 87.1 fL 80-98 N MEAN CELL HGB (test code = MCH) 28.7 picogram 27.0-33.0 N MEAN CELL HGB CONCETRATION (test code = MCHC) 33.0 gram/dL 33.0-36. 0 N RED CELL DISTRIBUTION WIDTH (test code = RDW) 12.4 % 11.6-16. 2 N PLATELET COUNT (test code = PLT) 179 K/mm3 150-450 N MEAN PLATELET VOLUME (test code = MPV) 10.9 fL 6.7-11.0 N CBC W/O [id number] 14:23:00* Test Item Value Reference Range Interpretation Comments WHITE BLOOD CELL (test code = WBC) K/mm3 4.5-12.5 RED BLOOD CELL (test code = RBC) mill/mm3 3.7-5.2 HEMOGLOBIN (test code = HGB) 14.0 gram/dL 11.5-15.5 N HEMATOCRIT (test code = HCT) 42.4 % 36.0-46.0 N MEAN CELL VOLUME (test code = MCV) fL 80-98 MEAN CELL HGB (test code = MCH) picogram 27.0-33.0 MEAN CELL HGB CONCETRATION (test code = MCHC) gram/dL 33.0-36. 0 RED CELL DISTRIBUTION WIDTH (test code = RDW) % 11.6-16. 2 PLATELET COUNT (test code = PLT) K/mm3 150-450 MEAN PLATELET VOLUME (test code = MPV) fL 6.7-11.0 - XR CHEST 1 [id number] 14:13:00 FAX: Rommel Whyte DO [place]: B St: REG Name: STAR CARREON [facility] : [birth year] Age/S: 54/F [address] [facility] Unit #: [id number] Loc: [place] [address] Phys: Rommel Whyte DO Acct: [id number] Dis Date: Status: REG ER PHONE #: [phone] Exam Date: 04/23/2019 1346 FAX #: [phone] Reason: CHEST PAIN EXAMS: CPT CODE: [id number] XR CHEST 1 V [id number] REASON FOR EXAM: CHEST PAIN Exam Order Date: 04/23/2019 1:27 PM Ordering M.D.: Rommel Whyte DO PROCEDURE: - XR CHEST 1 V COMPARISON: CT chest December 04, 2018 FINDINGS: The lungs are clear o ther than mild subsegmental atelectasis in the left midlung. There is no pleural effusion or pneumothorax. Pulmonary vascularity is within normal l imits. Cardiomediastinal silhouette is normal in size for techniqu e. The mediastinal contours are within normal limits. Degene rative changes are present in the spine and right acromioclavicular joint. The visualized upper abdomen is within normal limits. IMPRESSION: No acute cardiopulmonary process. E lectronically Signed by Maxwell Arenas MD on 04/23/2019 at 1413 Reported and signed by: Maxwell Arenas MD CC: Rommel Whyte DO Technologist: Elham Reyes RT(R) Trnscrd Date/Time/By: 04/23/2019 (8182) : By: [email or web address] Orig Print D/T: S: 04/23/2019 (0412) PAGE 1 Signed Report [id number] 10:56:00* Test Item Value Reference Range Interpretation Comments GLUBED (test code = GLUBED) 146 mg/dL 74-106 H Performed by certified vegetable washing machine operator at [facility] [id number] 07:45:00* Test Item Value Reference Range Interpretation Comments GLUBED (test code = GLUBED) 97 mg/dL 74-106 N Performed by certified vegetable washing machine operator at [facility] [id number] 21:19:00* Test Item Value Reference Range Interpretation Comments GLUBED (test code = GLUBED) 173 mg/dL 74-106 H Performed by certified vegetable washing machine operator at [facility] [id number] 20:59:00* Test Item Value Reference Range Interpretation Comments GLUBED (test code = GLUBED) 142 mg/dL 74-106 H Performed by certified vegetable washing machine operator at [facility] - MRI BRAIN W/O [id number] 16:55:00 FAX: Eryn Fields MD [phone] [place]: B St: [facility] FAX: Chelsie Russell Name: STAR CLIFFORD [facility] : 1965 Age/S: 53/F [address] [facility] Unit #: [id number] Loc: V.3072 [place] [address] Phys: Chelsie Russell NP Acct: [id number] Dis Date: Status: ADM IN PHONE #: [phone] Exam Date: 12/05/2018 1645 FAX #: [phone] Reason: headache EXAMS: CPT CODE: [id number] MRI BRAIN W/O CONTRAST 22544 REASON FOR EXAM: headache Exam Order Date: 12/05/2018 12:33 PM Attending MRenoDReno: Chelsie O Russell, HOSPITAL CLINIC ASSISTANT P rocedure: - MRI BRAIN W/O CONTRAST Comparison: FIND INGS: Axial, sagittal, and coronal images of the head were obtained using T1, T2 weighted, inversion recovery, and gradient echo sequences. The dif fusion images are within normal limits without abnormal signal intensity t o suggest acute infarct. No IV gadolinium was given. The sag ittal images show normal pituitary, cerebellum, and brain stem. No evidenc e of suprasellar mass. The axial T2, inversion recovery, and gradi ent echo images show no evidence of intra or extra axial mass. The ventric les, cisterns, and sulci are unremarkable. No evidence of hemorrhage. The cerebellar pontine angle area is within normal limits. There is no evidence of mass noted. The axial T1 images show no evidence of mass. The coronal images show normal optic chiasm. IMPRESSION: Chronic left basal ganglia infarct. No acute findings at 5971 Reported and signed by: Soham Mera M.D. CC: Eryn Sawant MD; Co Chelsie galindo NP Technologist: Ria Grullon(Vivi)(MR) Trnscrd Date/Time/By: 12/05/2018 (8437) : By: MartinVTL Orig Print D/T: S: 12/05/2018 (9918) PAGE 1 Signed Report [id number] 11:18:00* Test Item Value Reference Range Interpretation Comments GLUBED (test code = GLUBED) 130 mg/dL 74-106 H Performed by certified vegetable washing machine operator at [facility] CBC W/AUTO [id number] 08:11:00* Test Item Value Reference Range Interpretation Comments WHITE BLOOD CELL (test code = WBC) 12.7 K/mm3 4.5-12.5 H RED BLOOD CELL (test code = RBC) 4.99 mill/mm3 3.7-5.2 N HEMOGLOBIN (test code = HGB) 13.7 gram/dL 11.5-15.5 N HEMATOCRIT (test code = HCT) 44.1 % 36.0-46.0 N MEAN CELL VOLUME (test code = MCV) 88.4 fL 80-98 N MEAN CELL HGB (test code = MCH) 27.5 picogram 27.0-33.0 N MEAN CELL HGB CONCETRATION (test code = MCHC) 31.1 gram/dL 33.0-36. 0 L RED CELL DISTRIBUTION WIDTH (test code = RDW) 13.2 % 11.6-16. 2 N RED CELL DISTRIBUTION WIDTH SD (test code = RDW-SD) 42.6 fL 37 .0-51.0 N PLATELET COUNT (test code = PLT) 252 K/mm3 150-450 N MEAN PLATELET VOLUME (test code = MPV) 10.6 fL 6.7-11.0 N NEUTROPHIL % (test code = NT%) 64.1 % 39.0-69.0 N IMMATURE GRANULOCYTE % (test code = IG%) 0.4 % 0.0-5.0 N LYMPHOCYTE % (test code = LY%) 28.9 % 25.0-55.0 N MONOCYTE % (test code = MO%) 5.7 % 0.0-10.0 N EOSINOPHIL % (test code = EO%) 0.6 % 0.0-5.0 N BASOPHIL % (test code = BA%) 0.3 % 0.0-1.0 N NUCLEATED RBC % (test code = NRBC%) 0.0 % 0-0 N NEUTROPHIL # (test code = NT#) 8.13 K/mm3 1.8-7.7 H IMMATURE GRANULOCYTE # (test code = IG#) 0.05 x10 3/uL 0-0.03 H LYMPHOCYTE # (test code = LY#) 3.66 K/mm3 1.0-5.0 N MONOCYTE # (test code = MO#) 0.72 K/mm3 0-0.8 N EOSINOPHIL # (test code = EO#) 0.07 K/mm3 0.0-0.5 N BASOPHIL # (test code = BA#) 0.04 K/mm3 0.0-0.2 N NUCLEATED RBC # (test code = NRBC#) 0.00 K/mm3 0.0-0.1 N MANUAL DIFF REQUIRED (test code = MDIFF) NO COMPREHENSIVE METABOLIC [id number] 07:38:00* Test Item Value Reference Range Interpretation Comments SODIUM (test code = NA) 140 mmol/L 136-145 N POTASSIUM (test code = K) 3.7 mmol/L 3.5-5.1 N CHLORIDE (test code = CL) 102.0 mmol/L 98-107 N CARBON DIOXIDE (test code = CO2) 28.0 mmol/L 21-32 N ANION GAP (test code = GAP) 13.7 10-20 N GLUCOSE (test code = GLU) 105 mg/dL 74-106 N BLOOD UREA NITROGEN (test code = BUN) 20 mg/dL 7-18 H GLOMERULAR FILTRATION RATE (test code = GFR) > 60 mL/min >=60 Estimated GFR by using Modified MDRD formula.Chronic kidney disease is defined as either kidney damageor GFR <60 mL/min/1.73 m2 for >3 months. CREATININE (test code = CREAT) 0.80 mg/dL 0.55-1.02 N Note change in reference range due to change in reagent. BUN/CREATININE RATIO (test code = BUN/CREA) 25.0 10-20 H TOTAL PROTEIN (test code = PROT) 7.2 gram/dL 6.4-8.2 N ALBUMIN (test code = ALB) 2.9 g/dL 3.4-5.0 L GLOBULIN (test code = GLOB) 4.3 gram/dL 2.7-4.2 H ALBUMIN/GLOBULIN RATIO (test code = A/G) 0.7 0.75-1.50 L CALCIUM (test code = CA) 9.1 mg/dL 8.5-10.1 N BILIRUBIN TOTAL (test code = BILT) 0.30 mg/dL 0.0-1.0 N SGOT/AST (test code = AST) 24 IUnit/L 15-37 N SGPT/ALT (test code = ALT) 61 IUnit/L 12-78 N ALKALINE PHOSPHATASE TOTAL (test code = ALKP) 87 IUnit/L 45-117 N Note change in reference range due to change in reagent. [id number] 07:37:00* Test Item Value Reference Range Interpretation Comments GLUBED (test code = GLUBED) 103 mg/dL 74-106 N Performed by certified vegetable washing machine operator at [facility] COMPREHENSIVE METABOLIC [id number] 07:27:00* Test Item Value Reference Range Interpretation Comments SODIUM (test code = NA) 140 mmol/L 136-145 N POTASSIUM (test code = K) 3.7 mmol/L 3.5-5.1 N CHLORIDE (test code = CL) 102.0 mmol/L 98-107 N CARBON DIOXIDE (test code = CO2) mmol/L 21-32 ANION GAP (test code = GAP) 10-20 GLUCOSE (test code = GLU) mg/dL 74-106 BLOOD UREA NITROGEN (test code = BUN) mg/dL 7-18 GLOMERULAR FILTRATION RATE (test code = GFR) mL/min >=60 CREATININE (test code = CREAT) mg/dL 0.55-1.02 BUN/CREATININE RATIO (test code = BUN/CREA) 10-20 TOTAL PROTEIN (test code = PROT) gram/dL 6.4-8.2 ALBUMIN (test code = ALB) g/dL 3.4-5.0 GLOBULIN (test code = GLOB) gram/dL 2.7-4.2 ALBUMIN/GLOBULIN RATIO (test code = A/G) 0.75-1.50 CALCIUM (test code = CA) mg/dL 8.5-10.1 BILIRUBIN TOTAL (test code = BILT) mg/dL 0.0-1.0 SGOT/AST (test code = AST) IUnit/L 15-37 SGPT/ALT (test code = ALT) IUnit/L 12-78 ALKALINE PHOSPHATASE TOTAL (test code = ALKP) IUnit/L 45-117 - CT NECK [id number] 23:27:00 Name: TSAR CLIFFORD [facility] : 1965 Age/S: 53 / F [address] [facility] Unit #: [id number] Loc: [place] [address] Phys: Mattie Gallegos MD Acct: [id number] Dis Date: Status: ADM IN PHONE #: [phone] Exam Date: 12/04/2018 2310 FAX #: [phone] Reason: neck pain; lymph node pain EXAMS: CPT CODE: [id number] CT NECK W/CONTRAST 37441 HISTORY: Female, 53 years of age with neck pain; lymph node pain Location code: R16 EXAM: CT SCAN OF SOFT TISSUES OF THE NECK WITH IV CONTRAST. COMPARISON: Correlation made with CT of chest with contrast performed 9 hours prior TECHNIQUE: Helical axial images were obtained with nonionic IV contrast using the soft tissue neck protocol. Coronal and sagittal reformats were performed. One or more of the following dose reduction techniques were used: Automated exposure control; adjustment of the mA and/or kV according to the patient size; and/or use of iterative reconstruction technique. FINDINGS: No pathologically enlarged or necrotic lymph nodes are identified in the neck. No significant hypertrophy of tonsils or adenoids. No peritonsillar abscess collection. No prevertebral soft tissue edema. Vocal cords are symmetric. No airway compromise. The epiglottis is within normal limits. Tongue base is unremarkable. Carotid and jugular vessels are unremarkable. Salivary glands are unremarkable. Thyroid is normal size but contains a 0.9 cm cyst in the left lobe. Images through lung apices are unremarkable. Visualized paranasal sinuses are clear. 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 Right mastoid air cells are clear. No acute osseous abnormalities. IMPRESSION: No significant cervical lymphadenopathy or other acute pathology in the neck. at 2327 Reported and signed by: Melba Grayson MD CC: Mattie Gallegos MD; Eryn Sawant MD Vilma hnologist:KAR HUIZAR RT; TEE AVENDAÑO CTDI: DLP: Trnscb Date/T merle: 12/04/2018 (2326) Anaid Orig Print D/T: S: 12/04 (3520) CTDI: DLP: PAGE 1 Si gned Report T4 [id number] 22:37:00* Test Item Value Reference Range Interpretation Comments T4 FREE (test code = T4F) 1.13 ng/dL 0.76-1.46 N THYROID STIMULATING [id number] 22:37:00* Test Item Value Reference Range Interpretation Comments THYROID STIMULATING HORMONE (test code = TSH) 1.030 uIU/mL 0.36-3.7 4 N TSH REFERENCE RANGES: EUTHYROID: 0.35 - 4.3 mIU/mL HYPO : > 5.5 mIU/mL HYPER : < 0.35 mIU/mL [id number] 22:32:00* Test Item Value Reference Range Interpretation Comments TROPONIN-I (test code = TROPI) <0.015 ng/mL 0-0.045 N B-TYPE NATRIURETIC [id number] 22:31:00* Test Item Value Reference Range Interpretation Comments B-TYPE NATRIURETIC PEPTIDE (test code = BNP) 45.67 pgram/mL 0-100 N LIPID PROFILE (CORONARY RISK)2018-12-04 22:24:00* Test Item Value Reference Range Interpretation Comments TRIGLYCERIDES (test code = TRIG) 85 mg/dL 20-150 N CHOLESTEROL (test code = CHOL) 172 mg/dL 0-200 N CHOLESTEROL/HDL RATIO (test code = CHOLHDL) 2.0 RATIO 0-4.9 N RISK ASSOCIATED WITH CHOL/HDL RATIOS: Risk Male Female1/2 AVERAGE 3.43 3.27AVERAGE 4.97 4.442X AVERAGE 9.55 7.053X AVERAGE 23.39 11.04 REFERENCE VALUE IS RELATED TO RISK LEVELS ASRECOMMENDED BY THE RAD[facility]. HEART, LUNG, AND BLOOD INST. HDL CHOLESTEROL (test code = HDL) 78 mg/dL 40-60 H LIPOPROTEIN LDL (test code = LDL) 73 mg/dL 100-129 L Reference Interval: mg/dL mmol/L Optimal <100 <2.6Near/above optimal 100-129 2.6- 3.3Borderline High 130-159 3.4-4.1High 160-189 4.1-4.9Very High >=190 >=4.9========= This LDL result is a direct measurement.========= HEPATIC FUNCTION [id number] 22:24:00* Test Item Value Reference Range Interpretation Comments TOTAL PROTEIN (test code = PROT) 6.7 gram/dL 6.4-8.2 N ALBUMIN (test code = ALB) 3.0 g/dL 3.4-5.0 L GLOBULIN (test code = GLOB) 3.7 gram/dL 2.7-4.2 N ALBUMIN/GLOBULIN RATIO (test code = A/G) 0.8 0.75-1.50 N BILIRUBIN TOTAL (test code = BILT) 0.40 mg/dL 0.0-1.0 N BILIRUBIN DIRECT (test code = BILD) 0.14 mg/dL 0.0-0.20 N SGOT/AST (test code = AST) 27 IUnit/L 15-37 N SGPT/ALT (test code = ALT) 63 IUnit/L 12-78 N ALKALINE PHOSPHATASE TOTAL (test code = ALKP) 88 IUnit/L 45-117 N Note change in reference range due to change in reagent. [id number] 22:24:00* Test Item Value Reference Range Interpretation Comments GLYCOSYLATED HEMOGLOBIN (HA1C) (test code = GLYHGB) 7.2 % HbA1 4. 8-6.0 H ESTIMATED AVERAGE GLUCOSE (test code = EAG) 160 MG/DL [id number] 16:25:00* Test Item Value Reference Range Interpretation Comments TROPONIN-I (test code = TROPI) <0.015 ng/mL 0.00-0.056 N URINALYSIS [id number] 14:28:00* Test Item Value Reference Range Interpretation Comments UA COLOR (test code = COLU) YELLOW YELLOW UA APPEARANCE (test code = APPU) HAZY CLEAR A UA GLUCOSE DIPSTICK (test code = DGLUU) norm mg/dL NEGATIVE UA BILIRUBIN DIPSTICK (test code = BILU) NEGATIVE mg/dL NEGATIVE UA KETONE DIPSTICK (test code = KETU) neg mg/dL NEGATIVE UA SPECIFIC GRAVITY (test code = SGU) 1.015 1.001-1.035 UA BLOOD DIPSTICK (test code = LILLY) 150 (3+) Andriy/uL NEGATIVE A UA PH DIPSTICK (test code = YARA) 6.0 5.0-8.0 UA PROTEIN DIPSTICK (test code = PROU) 15 (TRACE) mg/dL Neg-15 A UA UROBILINIOGEN DIPSTICK (test code = URO) norm mg/dL 0.0-0.2 UA NITRITE DIPSTICK (test code = BETTINA) NEGATIVE NEGATIVE UA LEUKOCYTE ESTERASE DIPSTICK (test code = LEUU) 100/uL (2+) uL NE GATIVE A UA WBC (test code = WBCU) 5-10 per HPF 0-5 A IN SOME URINARY TRACT INFECTIONS THERE MAY NOT BE ENOUGHWBCs IN THE URINE TO TRIGGER AN AUTOMATIC (REFLEX) URINECULTURE. A SEPERATE ORDER FOR URINE CULTURE IS RECOMMENDEDIF THERE IS STRONG SUPPORT FOR A URINARY TRACT INFECTIONCLINICALLY. UA RBC (test code = RBCU) 0-3 per HPF 0-5 UA EPITHELIAL CELLS (test code = EPIU) Few (2-5/hpf) per HPF Few UA BACTERIA (test code = BACU) TRACE per HPF NONE Urine Source? Clean CatchUR HCG [id number] 14:28:00* Test Item Value Reference Range Interpretation Comments UR HCG QUAL (test code = HCGQLU) NEGATIVE This HCGQL test is NOT applicable for MALE patients.Check with nurse about probable order error.If Tumor Marker Test needed, nurse should order test "HCGTU"(Test #550.01027) Urine Source? Clean CatchURINALYSIS [id number] 14:22:00* Test Item Value Reference Range Interpretation Comments UA COLOR (test code = COLU) YELLOW YELLOW UA APPEARANCE (test code = APPU) HAZY CLEAR A UA GLUCOSE DIPSTICK (test code = DGLUU) norm mg/dL NEGATIVE UA BILIRUBIN DIPSTICK (test code = BILU) NEGATIVE mg/dL NEGATIVE UA KETONE DIPSTICK (test code = KETU) neg mg/dL NEGATIVE UA SPECIFIC GRAVITY (test code = SGU) 1.015 1.001-1.035 UA BLOOD DIPSTICK (test code = LILLY) 150 (3+) Andriy/uL NEGATIVE A UA PH DIPSTICK (test code = YARA) 6.0 5.0-8.0 UA PROTEIN DIPSTICK (test code = PROU) 15 (TRACE) mg/dL Neg-15 A UA UROBILINIOGEN DIPSTICK (test code = URO) norm mg/dL 0.0-0.2 UA NITRITE DIPSTICK (test code = BETTINA) NEGATIVE NEGATIVE UA LEUKOCYTE ESTERASE DIPSTICK (test code = LEUU) 100/uL (2+) uL NE GATIVE A UA WBC (test code = WBCU) per HPF 0-5 UA RBC (test code = RBCU) per HPF 0-5 UA EPITHELIAL CELLS (test code = EPIU) per HPF Few UA BACTERIA (test code = BACU) per HPF NONE Urine Source? Clean CatchUR HCG [id number] 14:22:00* Test Item Value Reference Range Interpretation Comments UR HCG QUAL (test code = HCGQLU) Urine Source? Clean Catch- CT CHEST [id number] 14:14:00 Name: STAR CLIFFORD [facility] : 1965 Age/S: 53 / F [address] [facility] Unit #: [id number] Loc: [place] [address] Phys: Gina Chua MD Acct: [id number] Dis Date: Status: REG ER PHONE #: [phone] Exam Date: 12/04/2018 1401 FAX #: [phone] Reason: CHEST PAIN RADIATING TO BACK AND DOWN LEFT ARM EXAMS: CPT CODE: [id number] CT CHEST W/CONTRAST 54898 HISTORY: Chest pain radiating to the left arm. COMPARISON: None available. CT chest with contrast: 100 mL of Isovue-370. Automated exposure control. Unremarkable aorta without aneurysm or dissection. Unremarkable pulmonary arteries (not performed as PE protocol). Well-opacified SVC and the neck vasculature. Thyroid glands are unremarkable although incompletely included. Esophageal wall is not thickened. No pathologic adenopathy. Cardiac silhouette is mildly enlarged without pericardial effusion. No atherosclerotic calcifications visible within the coronary arteries. Visualized upper abdomen demonstrating moderately distended gallbladder with large calcified gallstones and fatty liver. The subcutane ous tissues and the musculature are normal in appearance. No lytic or marlin tic lesions visible within the bony skeleton. DJD. The lungs are c lear of infiltrates, effusion or congestion. No bronchiectasis, honeycombi ng or fibrosis. Calcified granuloma in the right middle lobe. Dependent ch anges without parenchymal mass or nodules. IMPRESSION: Unremarkable aorta. No pulmonary embolism the proximal and mid pulmonary artery branches. Distal branches are very limited due to poor resolution (not performed as PE protocol). The lungs are clear with dependent changes. Hepatomegaly with fatty infiltration and large calcified gallstone within moderately distended gallbladder. at 1414 Reported and signed by: Dominick Alvarado M.D. PAGE 1 Signed Report (CONTINUED) Name: STAR DELUCA [facility] : 1965 Age /S: 53 / F [address] [facility] Unit #: [id number] Loc: [place] [address] Phys: Gina Chua MD Acct: [id number] Dis Date: Status: REG ER PHONE #: [phone] Exam Date: 12/04/2018 1401 FAX #: [phone] Reason: CHEST PAIN RADIATING TO BACK AND DOWN LEFT ARM EXAMS: CPT CODE: [id number] CT CHEST W/CONTRAST [id number] <Continued> CC: Gina Chua MD Technologist:Ashanti Jansen CTDI: DLP: Trnscb Date/Time: 12/04/2018 (1413) t.SDR.TH4 Orig Print D/T: S: 12/04/2018 (1417) CTDI: DLP: PAGE 2 Signed Report [id number] 13:05:00* Test Item Value Reference Range Interpretation Comments D-DIMER (test code = DDIMER) 187 ng/ml < 600 BASIC METABOLIC [id number] 13:00:00* Test Item Value Reference Range Interpretation Comments SODIUM (test code = NA) 140 mmol/L 135-148 N POTASSIUM (test code = K) 3.6 mmol/L 3.5-5.1 N CHLORIDE (test code = CL) 103 mmol/L 101-109 N CARBON DIOXIDE (test code = CO2) 27.8 mmol/L 21-32 N ANION GAP (test code = GAP) 13 mmol/L 10-20 N GLUCOSE (test code = GLU) 147 mg/dL 74-106 H BLOOD UREA NITROGEN (test code = BUN) 16 mg/dL 3-21 N GLOMERULAR FILTRATION RATE (test code = GFR) 54 mL/min >=60 Estimated GFR by using Modified MDRD formula.Chronic kidney disease is defined as either kidney damageor GFR <60 mL/min/1.73 m2 for >3 months. CREATININE (test code = CREAT) 1.06 mg/dL 0.55-1.3 N BUN/CREATININE RATIO (test code = BUN/CREA) 15.1 10-20 N CALCIUM (test code = CA) 9.5 mg/dL 8.4-10.2 N [id number] 13:00:00* Test Item Value Reference Range Interpretation Comments TROPONIN-I (test code = TROPI) <0.015 ng/mL 0.00-0.056 N BASIC METABOLIC [id number] 12:46:00* Test Item Value Reference Range Interpretation Comments SODIUM (test code = NA) 140 mmol/L 135-148 N POTASSIUM (test code = K) 3.6 mmol/L 3.5-5.1 N CHLORIDE (test code = CL) 103 mmol/L 101-109 N CARBON DIOXIDE (test code = CO2) 27.8 mmol/L 21-32 N ANION GAP (test code = GAP) 13 mmol/L 10-20 N GLUCOSE (test code = GLU) 147 mg/dL 74-106 H BLOOD UREA NITROGEN (test code = BUN) 16 mg/dL 3-21 N GLOMERULAR FILTRATION RATE (test code = GFR) 54 mL/min >=60 Estimated GFR by using Modified MDRD formula.Chronic kidney disease is defined as either kidney damageor GFR <60 mL/min/1.73 m2 for >3 months. CREATININE (test code = CREAT) 1.06 mg/dL 0.55-1.3 N BUN/CREATININE RATIO (test code = BUN/CREA) 15.1 10-20 N CALCIUM (test code = CA) 9.5 mg/dL 8.4-10.2 N [id number] 12:46:00* Test Item Value Reference Range Interpretation Comments TROPONIN-I (test code = TROPI) ng/mL 0-0.045 CBC W/O [id number] 12:40:00* Test Item Value Reference Range Interpretation Comments WHITE BLOOD CELL (test code = WBC) 16.0 K/mm3 4.5-12.5 H RED BLOOD CELL (test code = RBC) 4.99 mill/mm3 3.7-5.2 N HEMOGLOBIN (test code = HGB) 14.5 gram/dL 11.5-15.5 N HEMATOCRIT (test code = HCT) 43.3 % 36.0-46.0 N MEAN CELL VOLUME (test code = MCV) 86.8 fL 80-98 N MEAN CELL HGB (test code = MCH) 29.1 picogram 27.0-33.0 N MEAN CELL HGB CONCETRATION (test code = MCHC) 33.5 gram/dL 33.0-36. 0 N RED CELL DISTRIBUTION WIDTH (test code = RDW) 13.7 % 11.6-16. 2 N RED CELL DISTRIBUTION WIDTH SD (test code = RDW-SD) 42.2 fL 39 .1-52.0 N PLATELET COUNT (test code = PLT) 246 K/mm3 150-450 N MEAN PLATELET VOLUME (test code = MPV) 10.4 fL 6.7-11.0 N - XR CHEST 1 [id number] 12:22:00 Name: STAR CLIFFORD [facility] : 1965 Age/S:53 /F [address] [facility] Unit#:[id number] Loc: [place] [address] Phys: Gina Chua MD Dis Date: PHONE #: [phone] Status: REG FAX #: [phone] Exam Date: 12/04/2018 Reason: CHEST PAIN EXAMS: CPT CODE: [id number] XR CHEST 1 V 85474 HISTORY: Chest pain. COMPARISON: January 26, 2018. No acute infiltrates, effusion or congestion is noted. Suboptimal inspiration. Dependent changes. Cardiomegaly. IMPRESSION: No acute infiltrates, effusion or congestion. Suboptimal inspiration with dependent changes. at 1222 Reported and signed by: Dominick Alvarado M.D. CC: Gina Chua MD Technologist: Ashanti Jansen Trnscrpt Data: 12/04/2018 (1222) Rocky.TH4 Orig Print D/T: S: 12/04/2018 (2140) PAGE 1 Signed Report
[2020-01-27 22:18] LABS: BACTERIA,URINE RARE /HPF; EPITHELIAL CELLS,URINE FEW /LPF; RBC,URINE 0-5 /HPF (0-5); WBC,URINE (MAN) 0-5 /HPF (0-5)
[2020-01-27] MEDS ORDERED: LISINOPRIL 10 MG TAB PO ONE (22:30)
[2020-01-27] MEDS ORDERED: HYDRALAZINE HCL 25 MG TAB PO PRN (22:30)
--- NOTE | 2020-01-27 23:18 | NUR ---
Blood consent signed by pt., first unit of PRBC hung & was validated with Salo CASTILLO at bedside prior to starting blood transfusion. Pt AAOx4, VSS. Will continue to monitor pt for transfusion reaction. Pt has no further demands made at this time.
[2020-01-28] VITALS (10 sets, daily range): BP systolic 129–177; BP diastolic 78–94
[2020-01-28] MEDS: INSULIN GLARGINE 100 UNITS/ML VIAL SQ SCH ×2 (00:33→21:11)
--- NOTE | 2020-01-28 00:35 | NUR ---
Pt lying comfortable on bed, AAOx4, VSS. 2nd unit of PRBC was verified by 2 RN's & hung at this time. VSS per quality assurance monitor final, No c/o fever, SOB or reactions.
--- NOTE | 2020-01-28 00:40 | NUR ---
First unit done. Pt has no c/o of reaction since blood transfusion was started. 2nd unit obtained from blood bank, 2nd RN at bedside for validation prior to starting blood transfusion, pt stable.
[2020-01-28] MEDS ORDERED: [UNRECOGNIZED DRUG - REMARK] (01:14)
--- NOTE | 2020-01-28 01:45 | NUR ---
2nd unit of PRBC was transfused. Dr Mobley at bedside talking with pt regarding results & follow up instructions. Pt for discharge to home. VSS.
[2020-01-28 05:29] LABS: BASOPHILS % 0.3 % (0.0-1.0); EOSINOPHILS # (AUTO) 0.3 (0.0-0.4); EOSINOPHILS % 2.8 % (0.0-6.0); HEMATOCRIT 37.9 % (34.2-44.1); HEMOGLOBIN 12.9 g/dL (12.0-16.0); LYMPHOCYTES # (AUTO) 3.3 (1.0-3.2); LYMPHOCYTES % 35.1 % (18.0-39.1); MEAN CORPUSCULAR HEMOGLOBIN 27.6 pg (28-32); MEAN CORPUSCULAR VOLUME 81.2 fL (81-99); MONOCYTES # (AUTO) 0.6 (0.2-0.8); MONOCYTES % 6.4 % (4.4-11.3); NEUTROPHILS # (AUTO) 5.2 (2.1-6.9); NEUTROPHILS % 55.1 % (38.7-80.0); PLATELET COUNT 197 x10e3/uL (140-360); RED BLOOD COUNT 4.67 x10e6/uL (3.6-5.1); RED CELL DISTRIBUTION WIDTH 12.6 % (11.7-14.4)
[2020-01-28 05:50] LABS: CREATINE KINASE MB 0.9 ng/mL (0-5.0)
[2020-01-28 06:04] LABS: ALANINE AMINOTRANSFERASE 51 IU/L (0-55); ALBUMIN 2.7 g/dL (3.5-5.0); ALBUMIN/GLOBULIN RATIO 0.8 (0.8-2.0); ALKALINE PHOSPHATASE 100 IU/L (40-150); ANION GAP 11.1 mmol/L (8-16); BLOOD UREA NITROGEN 6 mg/dL (7-26); BUN/CREATININE RATIO 8 (6-25); CALCIUM 8.1 mg/dL (8.4-10.2); CARBON DIOXIDE 23 mmol/L (22-29); CHLORIDE 110 mmol/L (98-107); CREATININE, SERUM 0.72 mg/dL (0.57-1.11); EST GLOMERULAR FILTRATION RATE > 60 ML/MIN (60-); GLUCOSE 189 mg/dL (74-118); MAGNESIUM 1.3 MG/DL (1.3-2.1); POTASSIUM 3.1 mmol/L (3.5-5.1); SODIUM 141 mmol/L (136-145)
--- NOTE | 2020-01-28 06:11 | NUR ---
Notified Dr Nina regarding new consult for new onset type 2 DM. Will see patient.
--- NOTE | 2020-01-28 07:06 | NUR ---
Bedside report and walking rounds completed with on coming nurse. Patient in bed with call light within reach. No issues or concerns noted.
[2020-01-28] MEDS: INSULIN LISPRO 100 UNIT/1 ML 3ML VIAL SQ SCH ×7 (07:30→21:10)
[2020-01-28] MEDS: ACETAMINOPHEN 325 MG TAB PO PRN ×2 (08:30→14:46)
[2020-01-28] MEDS: LISINOPRIL 10 MG TAB PO SCH (08:30)
[2020-01-28] MEDS: ASPIRIN 81 MG ENTERIC COATED PO SCH (08:30)
[2020-01-28] MEDS ORDERED: FAMOTIDINE 20 MG/2 ML VIAL IV SCH (09:00)
--- NOTE | 2020-01-28 09:07 | NUR ---
holding scheduled humalog due to nausea and patient not eating.
--- NOTE | 2020-01-28 10:35 | NUR ---
pharmacy and dietary consult ordered.
[2020-01-28] MEDS ORDERED: POTASSIUM CHLORIDE 20 MEQ in DEXTROSE 5%/0.45% SOD CHL 1,000 ML IV SCH (14:30)
--- NOTE | 2020-01-28 14:54 | History and Physical ---
CHIEF COMPLAINT: Severe hyperglycemia, blood sugar is 470 with A1c of 11. The patient has also hypertensive urgency as well. HISTORY OF PRESENT ILLNESS: The patient is a 55-year-old female, came to the hospital with complaint of increase in generalized ache and pain and also dizziness x3 weeks along with headache. The patient's blood pressure was elevated. She had no history of diabetes, but blood sugar in the emergency room fingerstick was 593. The patient also complained of nausea and vomiting as well. The patient is admitted for further evaluation. PAST MEDICAL HISTORY: Hypertension, not on any medication, noncompliant. PAST SURGICAL HISTORY: Cholecystectomy. SOCIAL HISTORY: The patient does not smoke or use alcohol. No recreational drug use. ALLERGIES: NO KNOWN ALLERGIES. HOME MEDICATIONS: None. PHYSICAL EXAMINATION: VITAL SIGNS: Temperature is 98, blood pressure is 177/94, pulse rate 78, respiration 20. GENERAL: The patient is not in acute distress. She is awake. HEENT: Normocephalic and atraumatic. Anicteric. NECK: Supple grossly. PULMONARY: Diminished breath sounds bilaterally without any wheezes or rales. CARDIOVASCULAR: S1, S2. Regular rate and rhythm. ABDOMEN: Soft, nontender, non-distention. EXTREMITIES: No gross cyanosis or edema. NEUROLOGIC: No gross focal deficit. LABORATORY DATA: Sodium is 137, potassium 3, chloride 100, bicarb 21, BUN is 9, creatinine 1.1, glucose is 593. Fingerstick with chemistry 470. AST is 59, ALT is 76, alkaline phosphate is 151. Troponin I negative. Triglycerides 202, LDL 62. Amylase and lipase normal. TSH is normal. IMPRESSION: 1. Uncontrolled diabetes. 2. Hypertensive urgency. 3. Noncompliance to hypertensive medication. PLAN: Insulin coverage. Lantus and Humalog with insulin sliding scale coverage. Hemoglobin A1c, thyroid function tests already done. Hemoglobin A1c is 11. Consultation with Dr. Gilles Nina. Dietitian consultation. Blood pressure control, start the patient on lisinopril. We will monitor the patient closely. The patient will need a diabetic education prior to discharge. MD ZOEY Iniguez/AWAIS /[id number]
[2020-01-28] MEDS: D5.45%NS/KCL 20MEQ 1,000 ML IV SCH (15:08)
[2020-01-28] MEDS: ONDANSETRON HCL INJ 2MG/ML 2ML 2 MG/ML VIAL IV PRN (15:08)
[2020-01-28 16:06] LABS: CREATINE KINASE MB 0.8 ng/mL (0-5.0)
--- NOTE | 2020-01-28 16:29 | Consultation ---
DATE OF CONSULTATION: 01/28/2020 Endocrine consultation. The patient of Dr. Mobley. Thank you very much for referring this patient. HISTORY OF PRESENT ILLNESS: This is a 55-year-old lady, who was referred to me for evaluation of diabetes mellitus. According to the daughter, the patient is a known diabetic for last few years, but she has a lot of denial about it and has not been taking any medications for it. At this time, the patient came to the hospital with history of nausea, vomiting, and pain in the abdomen. On further evaluation in the emergency room, her blood sugar was found to be 470 and her anion gap was 19. Her hemoglobin A1c is 10.7. The patient also has history of hypertension and was also found to be hypokalemic. She does have family history of diabetes mellitus. The patient is postmenopausal. No history of coronary artery disease or strokes in the past. She is a nonsmoker. PHYSICAL EXAMINATION: GENERAL: Today, the patient is alert, awake, little bit apprehensive. She is moderately overweight. VITAL SIGNS: Heart rate is around 78, blood pressure is 156/80 mmHg. HEENT: Essentially unremarkable. Thyroid is palpable. Clinically, she is near euthyroid. CHEST: Bilateral vesicular breathing. No rales. CARDIOVASCULAR: First and second heart sounds. There are no third or fourth heart sounds. Ejection systolic murmur grade 2/6. ABDOMEN: The patient has epigastric tenderness. EXTREMITIES: She has evidence of diabetic sensory neuropathy in both lower extremities. IMPRESSION: Diabetes mellitus type 2, uncontrolled with complications, mild diabetic ketoacidosis, obesity. PLAN: At this time, she has been started on the Lantus 30 units at bedtime and Humalog 10 with each meal. The patient needs extensive diabetic and dietary education. Thanks again for referring this patient. I will follow this patient with you. I will follow this patient along with you. MD JESSICA Case/AWAIS /[id number]
[2020-01-28] MEDS ORDERED: INSULIN LISPRO 100 UNIT/1 ML 3ML VIAL SQ SCH (16:30)
--- NOTE | 2020-01-28 16:47 | NUR ---
Nutrition Screen Note RD Recommendation for Physician: - Continue 1800 ADA diet - Recommend outpatient CDE education consult upon discharge Plan of Care: RD following, monitoring for tolerance and adequacy - Diet education provided 01/27 Nutrition reason for involvement: MD Consult, MST2, RN Consult- diet education Primary Diagnose(s): hypokalemia, obesity, new onset DM2 PMH: no H&P Ht: 60 in Wt: 200 lb BMI: 39.1 kg/m2 IBW: [address] Assessment: (01/27) 55 YOF admitted for hypokalemia found to have new onset DM. Pt seen today per consult for diet education. Pt Kyrgyz speaking only, daughter at bedside provided translation. Pt and daughter educated on CHO sources, serving sizes, meal planning, label reading, and foods to avoid. All questions and concerns addressed at time of visit and education materials provided. Pt's daughter reports N/V APPLICATIONS PROJECT MANAGER, which has resolved and good intake reported. Chart reviewed. Labs and meds reviewed. Will continue to monitor. Current Diet: 1800 ADA Malnutrition Evaluation (01/28/20) The patient does not meet criteria for a specified degree of malnutrition at this time. Will re-evaluate at follow-up as appropriate. Diet Education Needs Assessment: Diet education indicated, education provided 01/27. Learner(s): pt, pt's daughter Barriers: none Cultural/Language Modifications: materials provided in Kyrgyz Readiness: ready Method: handouts, discussion Topics: DM2 nutrition therapy Understanding/Compliance: fair Diet tolerance: tolerating po Nutrition Care Level: low Signed: Patricia López RD, LD, [facility]
[2020-01-29] VITALS (8 sets, daily range): BP systolic 107–160; BP diastolic 61–85
[2020-01-29] MEDS: D5.45%NS/KCL 20MEQ 1,000 ML IV SCH ×2 (00:32→11:00)
[2020-01-29 05:45] LABS: BASOPHILS % 0.4 % (0.0-1.0); EOSINOPHILS # (AUTO) 0.2 (0.0-0.4); EOSINOPHILS % 3.1 % (0.0-6.0); HEMATOCRIT 39.3 % (34.2-44.1); HEMOGLOBIN 13.4 g/dL (12.0-16.0); LYMPHOCYTES # (AUTO) 2.9 (1.0-3.2); LYMPHOCYTES % 39.6 % (18.0-39.1); MEAN CORPUSCULAR HEMOGLOBIN 28.2 pg (28-32); MEAN CORPUSCULAR HGB CONC 34.1 g/dL (31-35); MEAN CORPUSCULAR VOLUME 82.7 fL (81-99); MONOCYTES # (AUTO) 0.5 (0.2-0.8); MONOCYTES % 7.1 % (4.4-11.3); NEUTROPHILS # (AUTO) 3.6 (2.1-6.9); NEUTROPHILS % 49.7 % (38.7-80.0); PLATELET COUNT 193 x10e3/uL (140-360); RED BLOOD COUNT 4.75 x10e6/uL (3.6-5.1); RED CELL DISTRIBUTION WIDTH 12.4 % (11.7-14.4)
[2020-01-29 05:57] LABS: ANION GAP 12.4 mmol/L (8-16); BLOOD UREA NITROGEN 7 mg/dL (7-26); BUN/CREATININE RATIO 10 (6-25); CARBON DIOXIDE 24 mmol/L (22-29); CHLORIDE 107 mmol/L (98-107); CREATININE, SERUM 0.73 mg/dL (0.57-1.11); EST GLOMERULAR FILTRATION RATE > 60 ML/MIN (60-); GLUCOSE 230 mg/dL (74-118); POTASSIUM 3.4 mmol/L (3.5-5.1); SODIUM 140 mmol/L (136-145)
--- NOTE | 2020-01-29 07:10 | NUR ---
RCD PT AT BED PT IS ALERT AND ORIENTED RESTING ON BED IV PATENT AND RUNNING 125 ML /HR BED LOW AND LOCKED CALL LIGHT IN REACH
[2020-01-29] MEDS: INSULIN LISPRO 100 UNIT/1 ML 3ML VIAL SQ SCH ×7 (07:30→20:05)
[2020-01-29] MEDS: ASPIRIN 81 MG ENTERIC COATED PO SCH (09:00)
[2020-01-29] MEDS: LISINOPRIL 10 MG TAB PO SCH (09:00)
--- NOTE | 2020-01-29 10:46 | NUR ---
DC THE TELEY FOR MRI
--- NOTE | 2020-01-29 11:37 | NUR ---
PT WENT TO PROCEDURE IN SAFE CONDITION
--- NOTE | 2020-01-29 12:50 | Diagnostic Imaging Report ---
History: Headaches Comparison studies: None Technique: Sagittal T2; axial DWI, FLAIR, MPGR, T1, Coronal FLAIR. Intravenous contrast: None Findings: Scalp: Normal in signal . No masses . Bone marrow: Normal in signal intensity. Extra-axial: No masses, no fluid collections. Brain sulci: Appropriate for age. Ventricles: Normal in size . No hydrocephalus . Parenchyma: Few T-2/flair hyperintensities of the supratentorial white matter, nonspecific and is seen with mild chronic microvascular ischemic changes. No masses, hemorrhage, acute or chronic vascular insults. Suprasellar region: No abnormalities. Craniocervical junction: No abnormalities. Patent foramen magnum. No Chiari one malformation. Vessels: Normal flow-voids in the arteries and sinuses. IMPRESSION: 1. No acute abnormalities. 2. Mild chronic microvascular ischemic changes of the white matter Signed by: DR Brandon Jean M.D. on 01/29/2020 12:47 PM
[2020-01-29] MEDS: ACETAMINOPHEN 325 MG TAB PO PRN ×2 (15:06→21:09)
--- NOTE | 2020-01-29 18:41 | NUR ---
PT RESTING ON BED BED SIDE REPORT GIVEN TO ONCOMING NURSE
--- NOTE | 2020-01-29 18:50 | NUR ---
RECEIVED THE PATIENT IN REPORT.LYEING IN THE BED.STABLE CONDITION.IV FLUID RUNNING.
[2020-01-29] MEDS ORDERED: INSULIN GLARGINE 100 UNITS/ML VIAL SQ SCH (21:00)
--- NOTE | 2020-01-29 21:30 | NUR ---
C/O HEADACHE.TYLENOL 650 MG PO GIVEN.VIS CHECKED AND STABLE BP NOTED 145/90 MM OF HG.
[2020-01-30] VITALS: BP 151/82
[2020-01-30] MEDS: D5.45%NS/KCL 20MEQ 1,000 ML IV SCH ×2 (00:34→08:17)
--- NOTE | 2020-01-30 02:00 | NUR ---
Resting during night.stable condition.denied any needs.
[2020-01-30 04:00] VITALS: BP 148/58
--- NOTE | 2020-01-30 07:00 | NUR ---
BEDSIDE SHIFT REPORT RECEIVED FROM WATER POLLUTION SCIENTIST RN. PT DENIES NEEDS AT THIS TIME.
--- NOTE | 2020-01-30 07:05 | NUR ---
BED SIDE SHIFT REPORT GIVEN TO ONCOMING RN.STABLE CONDITION.
[2020-01-30 07:57] VITALS: BP 96/80
[2020-01-30] MEDS: LISINOPRIL 10 MG TAB PO SCH (08:16)
[2020-01-30] MEDS: ASPIRIN 81 MG ENTERIC COATED PO SCH (08:16)
[2020-01-30] MEDS: INSULIN LISPRO 100 UNIT/1 ML 3ML VIAL SQ SCH ×4 (08:18→12:22)
[2020-01-30] MEDS: ACETAMINOPHEN 325 MG TAB PO PRN (08:32)
[2020-01-30 08:55] VITALS: BP 96/80
[2020-01-30] MEDS ORDERED: TRESIBA FL100 UNIT/1 SQ (11:26)
[2020-01-30] MEDS ORDERED: NOVOLOG100 UNIT/1 SC (11:27)
[2020-01-30] MEDS ORDERED: LISINOPRIL5 MG PO (11:28)
[2020-01-30] MEDS ORDERED: MIDRIN (11:33)
[2020-01-30 11:52] VITALS: BP 152/78
--- NOTE | 2020-01-30 14:29 | NUR ---
Nutrition Follow-up Note RD Recommendation for Physician: - Continue 1800 ADA diet - Recommend outpatient CDE education consult upon discharge Plan of Care: RD following, monitoring for tolerance and adequacy, diet education Nutrition reason for involvement: RN Consult - diet education Primary Diagnose(s): hypokalemia, obesity, new onset DM2 PMH: no H&P Ht: 60 in Wt: 200 lb BMI: 39.1 kg/m2 IBW: [address] Assessment: (01/29) RN consult received for diet education. Notified RN that RD has spoken with pt and daughter regarding diabetic diet on 01/27. RN acknowledged. Visited pt in the room. Pt ate well with 75% lunch intake. No GI complains. No other questions during my time of visit. Plan to d/c today. (01/27) 55 YOF admitted for hypokalemia found to have new onset DM. Pt seen today per consult for diet education. Pt Azeri speaking only, daughter at bedside provided translation. Pt and daughter educated on CHO sources, serving sizes, meal planning, label reading, and foods to avoid. All questions and concerns addressed at time of visit and education materials provided. Pt's daughter reports N/V TRAVELIFT OPERATOR, which has resolved and good intake reported. Chart reviewed. Labs and meds reviewed. Will continue to monitor. Current Diet: 1800 ADA Malnutrition Evaluation (01/28/20) The patient does not meet criteria for a specified degree of malnutrition at this time. Will re-evaluate at follow-up as appropriate. Diet Education Needs Assessment: Diet education indicated, education provided 01/27. Learner(s): pt, pt's daughter Barriers: none Cultural/Language Modifications: materials provided in Azeri Readiness: ready Method: handouts, discussion Topics: DM2 nutrition therapy Understanding/Compliance: fair Diet tolerance: tolerating po Nutrition Care Level: low Signed: Mattie San, MS, RD, LD
[2020-01-30 20:00] VITALS: BP 163/95
--- NOTE | 2020-01-31 04:56 | Discharge Summary ---
[facility] PORTAL CONSULTANT: Gilles Nina MD FINAL DIAGNOSES: 1. Newly diagnosed diabetes type 2 with uncontrolled diabetes. Blood sugar in the 500 to 700. Glycohemoglobin A1c is 11. 2. Hypertensive urgency, much improved. 3. Headaches, improving with a negative MRI of the brain. SUMMARY: The patient is a 55-year-old female, not taking any medication at home, came in with blood sugar in the 600 to 700. The patient is also dehydrated. She also having low potassium, having headache and high blood pressure. The patient is doing much better now. She is stable. She had some education for diabetes management. ADA diet. The patient is also having some severe headaches, MRI of the brain is negative. The patient is stable today. She will go home today with the following instructions. Glucometer, lancets, and test strips. Tresiba FlexPen 30 units at bedtime. NovoLog FlexPen 10 units before meals. NovoFine needles. Lisinopril 5 mg daily. Midrin 100/325, one tab q.6 hours as needed for headaches. The patient instructed to follow up with Dr. Gilles Nina, cad designer drafter in early next week, and her primary care physician within a week. The patient is otherwise stable, discharged home today. MD ZOEY Iniguez/AWAIS /[id number]
== END 2020-01-30 14:56 | disposition home or self-care (01) | DRG 639 ==
LOC: ER 18:23 → ERHOLD 21:11 → OBSVTOIN 22:33 → MED/SURG2 22:52
PROVIDERS: ADMIT Internal Medicine; ATTEND Internal Medicine
DX: E11.10 Type 2 diabetes mellitus with ketoacidosis without coma (principal); I16.0 Hypertensive urgency; R51 Headache; E11.40 Type 2 diabetes mellitus with diabetic neuropathy, unspecified; Z79.4 Long term (current) use of insulin; E66.9 Obesity, unspecified; Z68.39 Body mass index [BMI] 39.0-39.9, adult
CPT/HCPCS: 36415; 70551; 71045; 80048; 80053; 80061; 81001; 82150; 82550; 82553; 82948; 83036; 83690; 83735; 83880; 84439; 84443; 84484; 85025; 87086; 87635; 93005; 99284; J1815; J1817; J2405; J3480; J7030